=== PATIENT | male | born 1960 | race Caucasian/White ===

== ENCOUNTER 2024-11-05 00:37 | Day surgery (SDC) | payer MEDICARE, MEDICAID, SELFPAY ==
[2024-10-29 12:40] VITALS: BMI 24.0
--- OUTSIDE RECORDS SUMMARY | 2024-11-05 00:40 | XMS_ITS | Data Portability ---
Author Organization [facility] [place] Address [address] [place] [address] Care Team Providers Care Avionics Mechanic Name Role Phone BRENNON HILLMAN Primary Care Provider [phone] Assessment Encounter Date Assessment Date Assessment LastModified by Organization Details LastModified Time 03/27/2024 03/27/2024 we will try to g et records from Cardiology. I have advised that he get colonoscopy or Cologuard he has refused. Start blood pressure medication he has refused start aspirin at 81 mg because of his history of CAD with stent. He has refused. He will allow me to get a low-dose CT of the chest and some blood work. Smoking cessation quitting tobacco care instructions have been given to the patient he is not interested at all in any treatment to quit smoking. I will see him back in about 6 weeks. I have also recommended they see an molasses preparer because of these alleged for anaphylactic shock episodes he will think about. Refuses any respiratory immunizations today Not available 03/27/2024 16:39:43 05/29/2024 05/29/2024 start losartan. 25 mg daily. Atorvastatin 10 mg daily. Pulmonary function test. Healthy lifestyle care instructions. Warned of the ill effects of tobacco which included but not limited to increased tone in his aerodigestive tract increase incidence of heart attack stroke cancer lead to sudden or chronic medical illness. Not interested in any Modalities for tobacco cessation he will see me back in 6 weeks he was advised to stay up-to-date on COVID vaccination colon cancer screening HIV screening pneumococcal vaccination of which he refused all. Start aspirin 81 mg daily [email or web address] Not available 05/30/2024 12:33:58 06/24/2024 06/24/2024 quitting tobacco care instructions. Assessments reviewed screenings and immunizations ordered were appropriate and patient agreeable keep regular medical follow up [email or web address] Not available 06/28/2024 21:36:18 07/10/2024 07/10/2024 I want to refer him to Cardiology he states that he will not go because he ended last encounter on bad terms. I said we can always see another foreign languages professor and he really was not agreeable to that as yet. I am going to get try to get him seen by an molasses preparer because the patient thinks that he is going to have an anaphylaxis with any drug because they did not really find out why he had these episodes. Tobacco cessation again discussed in detail as well as keeping up on immunizations. He has some insurance challenges because of his narrow network on getting colonoscopies he will see me back in 1-2 months again I have recommended antihypertensive therapy today and he has refused [email or web address] Not available 07/11/2024 16:49:48 10/09/2024 10/09/2024 I told him to ge t a hold of Urology we gave him the phone number because of his elevated PSA ordered blood work reordered his LD CT and told him that he needs to answer his phone when people call so that they can schedule his appointment albuterol inhaler follow up 3-4 months warned of the ill effects of tobacco which included but not limited to increase tumors of the aerodigestive tract increase incidence a heart attack stroke and cancer that can lead to sudden or chronic medical illness [email or web address] Not available 10/09/2024 16:00:48 Plan of Treatment Reminders Order Date Submit Date Provider Last Modified By Organization Details Last Modified Time Details Appointments None recorded. Lab lipid panel, serum 2024 025 [facility], [address] [place] [address], [address], [place], [address], 09:02:12 CBC w/ auto diff 2024 025 [facility], [address] [place] [address], [address], [place], [address], 09:02:15 CMP, serum or plasma 2024 025 [facility], [address], [address], [place], [address], 5 09:02:14 PSA, total, serum or plasma 2023 024 [facility], [address], [address], [place], [address], 4 17:09:36 CBC w/ auto diff 2023 024 [facility], [address], [address], [place], [address], 4 17:09:35 CMP, serum or plasma 2023 024 [facility], [address], [address], [place], [address], 4 17:09:31 lipid panel, serum 2023 024 [facility], [address], [address], [place], [address], 4 17:09:30 urinalysis , complete 2023 024 [facility], [address], [address], [place], [address], 4 17:09:33 Referral molasses preparer referral 2024 025 [facility], [address], [place], [address], 5 11:47:59 Procedures colonoscop y screening (PROC) 2024 025 [facility], [address], [address], [place], [address], 11:58:27 Surgeries None recorded. Imaging LDCT, chest, for lung cancer screening 2023 [facility] (Imaging), [address], [place], [address], 5 16:16:19 LDCT, chest, for lung cancer screening 2023 024 [facility] ([facility]), [address] [place], [address], 5 11:36:31 Medication Orders albuterol sulfate HFA 90 mcg/actuat ion aerosol inhaler 2024 025 [email or web address][id number], [address], [place], [id number], 14:27:45 aspirin 81 mg capsule 2023 024 [email or web address] [facility] #[id number], [address], [place], [id number], 13:34:55 losartan 25 mg tablet 2023 024 [email or web address] #[id number], [address], [place], [id number], 13:34:55 atorvastat in 10 mg tablet 2023 024 [facility] #[id number], [address], [place], [id number], 4 13:34:55 Patient TargetsNo targets recorded. Patient Instructions Encounter Date Encounter Id Patient Instructions Last Modified By Organization Details Last Modified Time 03/27/2024 [id number] Quitting Tobacco : Care Instructions [email or web address] Not available 03/27/2024 15:56:13 05/29/2024 [id number] A healthy lifestyle: care instructions [email or web address] Not available 05/29/2024 13:34:55 06/24/2024 [id number] Quitting Tobacco : Care Instructions Not available 06/24/2024 12:53:44 Medicare [facility] Checklist [email or web address] Not available 06/24/2024 12:53:44 07/10/2024 [id number] A healthy lifestyle: care instructions Not available 07/10/2024 12:59:33 10/09/2024 [id number] A healthy lifestyle: care instructions [email or web address] Not available 10/09/2024 14:27:45 Quitting Tobacco : Care Instructions [email or web address] Not available 10/09/2024 14:27:45 Reason for Referral Reproduction Technician Referral for Anaph ylaxis Referring Physician: Brennon Hillman, Internal Medicine, Encounter Date: 07/10/2024 Results Created Date Observation Date Name Description Value Unit Range Abnormal Flag Note LastModifiedBy Organization Detail LastModifiedTime 04/03/2004/04/2024 SPECI MEN STATU S REPOR T specimen status report TNP Test not perfo rmed. Patie nt was unabl e to provi de a self- colle cted speci men for the reque sted testi ng. The follo wing test( s) were not perfo rmed: TEST: [id number] Urina lysis , Compl ete Not Available [facility] ([facility]) [address], [place], [address], 04/04/2024 17:09:29 04/03/2004/04/2024 LIPID PANEL cholesterol, total 124 mg/dL 100-19 9 Not Available [facility] ([facility]) [address] [place], [address], 04/04/2024 17:09:30 04/03/2004/04/2024 LIPID PANEL triglyceride s 72 mg/dL 0-149 Not Available [facility] ([facility]) [address] [place], [address], 04/04/2024 17:09:30 04/03/20 24 04/04/2024 LIPID PANEL HDL cholesterol 39 mg/dL >39 below low normal Not Available [facility] ([facility]) [address] [place], [address], 04/04/2024 17:09:30 04/03/20 24 04/04/2024 LIPID PANEL VLDL cholesterol talha 15 mg/dL 5-40 Not Available [facility] ([facility]) [address] [place], [address], 04/04/2024 17:09:30 04/03/20 24 04/04/2024 LIPID PANEL LDL chol calc ([facility]) 70 mg/dL 0-99 Not Available [facility] ([facility]) [address] [place], [address], 04/04/2024 17:09:30 04/03/20 24 04/04/2024 COMP. METAB OLIC PANEL (14) glucose 99 mg/dL 70-99 Not Available [facility] ([facility]) [address] [place], [address], 04/04/2024 17:09:31 04/03/20 24 04/04/2024 COMP. METAB OLIC PANEL (14) BUN 16 mg/dL 8-27 Not Available [facility] ([facility]) [address] [place], [address], 04/04/2024 17:09:31 04/03/20 24 04/04/2024 COMP. METAB OLIC PANEL (14) creatinine 0.89 mg/dL 0.76-1 .27 Not Available [facility] ([facility]) [address] [place], [address], 04/04/2024 17:09:31 04/03/20 24 04/04/2024 COMP. METAB OLIC PANEL (14) eGFR 96 mL/mi n/1.7 3 >59 Not Available [facility] ([facility]) [address] [place], [address], 04/04/2024 17:09:31 04/03/2004/04/2024 COMP. METAB OLIC PANEL (14) BUN/creatini ne ratio 18 04-09 Not Available [facility] ([facility]) [address], [place], [address], 04/04/2024 17:09:31 04/03/2004/04/2024 COMP. METAB OLIC PANEL (14) sodium 135 mmol/ L 134-14 4 Not Available [facility] ([facility]) [address] [place], [address], 04/04/2024 17:09:31 04/03/20 24 04/04/2024 COMP. METAB OLIC PANEL (14) potassium 4.8 mmol/ L 3.5-5. 2 Not Available [facility] ([facility]) [address] [facility], [place], [address], 04/04/2024 17:09:31 04/03/2004/04/2024 COMP. METAB OLIC PANEL (14) chloride 101 mmol/ L 96-106 Not Available [facility] ([facility]) [address] [facility], [place], [address], 04/04/2024 17:09:31 04/03/2004/04/2024 COMP. METAB OLIC PANEL (14) carbon dioxide, total 24 mmol/ L 20-29 Not Available [facility] ([facility]) [address] [facility], [place], [address], 04/04/2024 17:09:31 04/03/2004/04/2024 COMP. METAB OLIC PANEL (14) calcium 9.1 mg/dL 8.6-10 .2 Not Available [facility] ([facility]) [address] [facility], [place], [address], 04/04/2024 17:09:31 04/03/20 24 04/04/2024 COMP. METAB OLIC PANEL (14) protein, total 6.9 g/dL 6.0-8. 5 Not Available [facility] ([facility]) [address] [place], [address], 04/04/2024 17:09:31 04/03/20 24 04/04/2024 COMP. METAB OLIC PANEL (14) albumin 3.7 g/dL 3.9-4. 9 below low normal Not Available [facility] ([facility]) [address] [place], [address], 04/04/2024 17:09:31 04/03/2004/04/2024 COMP. METAB OLIC PANEL (14) globulin, total 3.2 g/dL 1.5-4. 5 Not Available [facility] ([facility]) [address] [place], [address], 04/04/2024 17:09:31 04/03/20 24 04/04/2024 COMP. METAB OLIC PANEL (14) bilirubin, total <0.2 mg/dL 0.0-1. 2 Not Available [facility] ([facility]) [address] [place], [address], 04/04/2024 17:09:31 04/03/20 24 04/04/2024 COMP. METAB OLIC PANEL (14) alkaline phosphatase 186 IU/L 44-121 above high normal Not Available [facility] ([facility]) [address] [place], [address], 04/04/2024 17:09:31 04/03/20 24 04/04/2024 COMP. METAB OLIC PANEL (14) AST (SGOT) 19 IU/L 0-40 Not Available [facility] ([facility]) [address] [place], [address], 04/04/2024 17:09:31 10/1804/04/2024 COMP. METAB OLIC PANEL (14) ALT (SGPT) 20 IU/L 0-44 Not Available [facility] ([facility]) [address] [facility], [place], [address], 04/04/2024 17:09:31 04/03/2004/04/2024 URINA LYSIS , COMPL ETE specific gravity - Test not perfo rmed. Patie nt was unabl e to provi de a self- colle cted speci men for the reque sted testi ng. The follo wing test( s) were not perfo rmed: Not Available [facility] ([facility]) [address] [place], [address], 04/04/2024 17:09:33 04/03/2004/04/2024 URINA LYSIS , COMPL ETE pH - Test not perfo rmed Not Available [facility] ([facility]) [address] [place], [address], 04/04/2024 17:09:33 04/03/2004/04/2024 URINA LYSIS , COMPL ETE protein - Test not perfo rmed Not Available [facility] ([facility]) [address] [place], [address], 04/04/2024 17:09:33 04/03/20 24 04/04/2024 URINA LYSIS , COMPL ETE glucose - Test not perfo rmed Not Available [facility] ([facility]) [address] [place], [address], 04/04/2024 17:09:33 04/03/2004/04/2024 URINA LYSIS , COMPL ETE ketones - Test not perfo rmed Not Available [facility] ([facility]) [address] [place], [address], 04/04/2024 17:09:33 10/18/20 24 04/03/2024 UNABL E TO VOID unable to void Commen t Patie nt unabl e to void. Urine to be colle cted at a later date. Not Available [facility] ([facility]) [address] [place], [address], 04/04/2024 17:09:34 04/03/20 24 04/04/2024 CBC WITH DIFFE RENTI AL/PL ATELE T WBC 11.5 x10e3 /uL 3.4-10 .8 above high normal Not Available [facility] ([facility]) [address] [place], [address], 04/04/2024 17:09:35 04/03/2004/04/2024 CBC WITH DIFFE RENTI AL/PL ATELE T RBC 4.04 x10e6 /uL 4.14-5 .80 below low normal Not Available [facility] ([facility]) [address] [place], [address], 04/04/2024 17:09:35 04/03/20 24 04/04/2024 CBC WITH DIFFE RENTI AL/PL ATELE T hemoglobin 11.3 g/dL 13.0-1 7.7 below low normal Not Available [facility] ([facility]) [address] [facility], [place], [address], 04/04/2024 17:09:35 04/03/20 24 04/04/2024 CBC WITH DIFFE RENTI AL/PL ATELE T hematocrit 36.4 % 37.5-5 1.0 below low normal Not Available [facility] ([facility]) [address] [place], [address], 04/04/2024 17:09:35 04/03/20 24 04/04/2024 CBC WITH DIFFE RENTI AL/PL ATELE T MCV 90 fL 79-97 Not Available [facility] ([facility]) [address] [place], [address], 04/04/2024 17:09:35 04/03/20 24 04/04/2024 CBC WITH DIFFE RENTI AL/PL ATELE T MCH 28.0 pg 26.6-3 3.0 Not Available [facility] ([facility]) [address] [facility], [place], [address], 04/04/2024 17:09:35 04/03/20 24 04/04/2024 CBC WITH DIFFE RENTI AL/PL ATELE T MCHC 31.0 g/dL 31.5-3 5.7 below low normal Not Available [facility] ([facility]) [address] [facility], [place], [address], 04/04/2024 17:09:35 04/03/20 24 04/04/2024 CBC WITH DIFFE RENTI AL/PL ATELE T RDW 12.5 % 11.6-1 5.4 Not Available [facility] ([facility]) [address] [facility], [place], [address], 04/04/2024 17:09:35 04/03/20 24 04/04/2024 CBC WITH DIFFE RENTI AL/PL ATELE T platelets 397 x10e3 /uL 150-45 0 Not Available [facility] ([facility]) [address] [facility], [place], [address], 04/04/2024 17:09:35 04/03/20 24 04/04/2024 CBC WITH DIFFE RENTI AL/PL ATELE T neutrophils 67 % notest ab. Not Available [facility] ([facility]) [address], [place], [address], 04/04/2024 17:09:35 04/03/20 24 04/04/2024 CBC WITH DIFFE RENTI AL/PL ATELE T lymphs 21 % notest ab. Not Available [facility] ([facility]) [address] [facility], [place], [address], 04/04/2024 17:09:35 04/03/20 24 04/04/2024 CBC WITH DIFFE RENTI AL/PL ATELE T monocytes 10 % notest ab. Not Available [facility] ([facility]) [address] [facility], [place], [address], 04/04/2024 17:09:35 04/03/20 24 04/04/2024 CBC WITH DIFFE RENTI AL/PL ATELE T eos 1 % notest ab. Not Available [facility] ([facility]) [address] [facility], [place], [address], 04/04/2024 17:09:35 04/03/20 24 04/04/2024 CBC WITH DIFFE RENTI AL/PL ATELE T basos 0 % notest ab. Not Available [facility] ([facility]) [address] [facility], [place], [address], 04/04/2024 17:09:35 04/03/20 24 04/04/2024 CBC WITH DIFFE RENTI AL/PL ATELE T neutrophils (absolute) 7.7 x10e3 /uL 1.4-7. 0 above high normal Not Available [facility] ([facility]) [address] [facility], [place], [address], 04/04/2024 17:09:35 04/03/20 24 04/04/2024 CBC WITH DIFFE RENTI AL/PL ATELE T lymphs (absolute) 2.4 x10e3 /uL 0.7-3. 1 Not Available [facility] ([facility]) [address] [place], [address], 04/04/2024 17:09:35 04/03/20 24 04/04/2024 CBC WITH DIFFE RENTI AL/PL ATELE T monocytes(ab solute) 1.1 x10e3 /uL 0.1-0. 9 above high normal Not Available [facility] ([facility]) [address] [place], [address], 04/04/2024 17:09:35 04/03/20 24 04/04/2024 CBC WITH DIFFE RENTI AL/PL ATELE T eos (absolute) 0.1 x10e3 /uL 0.0-0. 4 Not Available [facility] ([facility]) [address] [facility], [place], [address], 04/04/2024 17:09:35 04/03/20 24 04/04/2024 CBC WITH DIFFE RENTI AL/PL ATELE T baso (absolute) 0.1 x10e3 /uL 0.0-0. 2 Not Available [facility] ([facility]) [address], [place], [address], 04/04/2024 17:09:35 04/03/20 24 04/04/2024 CBC WITH DIFFE RENTI AL/PL ATELE T immature granulocytes 1 % notest ab. Not Available [facility] ([facility]) [address] [facility], [place], [address], 04/04/2024 17:09:35 04/03/20 24 04/04/2024 CBC WITH DIFFE RENTI AL/PL ATELE T immature grans (abs) 0.1 x10e3 /uL 0.0-0. 1 Not Available [facility] ([facility]) [address] [facility], [place], [address], 04/04/2024 17:09:35 04/03/20 24 04/04/2024 PROST ATE-S PECIF IC AG prostate specific Ag 15.6 NG/mL 0.0-4. 0 above high normal Rodney ECLIA metho dolog y. Accor ding to the Ameri can Urolo gical Assoc iatio n, Serum PSA shoul d decre ase and remai n at undet ectab le level s after radic al prost atect gerson. The AUA defin es bioch emica l recur rence as an initi al PSA value 0.2 ng/mL or great er follo wed by a subse quent confi rmato ry PSA value 0.2 ng/mL or great er. Value s obtai mary alice with diffe rent assay metho ds or kits canno t be used inter [place] . Resul ts canno t be inter prete d as absol [place] of the prese nce or absen ce of keke jenkins se. Not Available [facility] ([facility]) [address] [place], [address], 04/04/2024 17:09:36 10/10/19 25 10/10/2024 LIPID PANEL cholesterol, total 111 mg/dL 100-19 9 Not Available [facility] ([facility]) [address] [place], [address], 10/10/2024 09:02:12 10/10/1910/10/2024 LIPID PANEL triglyceride s 65 mg/dL 0-149 Not Available [facility] ([facility]) [address] [place], [address], 10/10/2024 09:02:12 10/10/19 25 10/10/2024 LIPID PANEL HDL cholesterol 38 mg/dL >39 below low normal Not Available [facility] ([facility]) [address] [place], [address], 10/10/2024 09:02:12 10/10/19 25 10/10/2024 LIPID PANEL VLDL cholesterol talha 14 mg/dL 5-40 Not Available [facility] ([facility]) [address] [place], [address], 10/10/2024 09:02:12 10/10/19 25 10/10/2024 LIPID PANEL LDL chol calc ([facility]) 59 mg/dL 0-99 Not Available [facility] ([facility]) [address] [place], [address], 10/10/2024 09:02:12 10/10/19 25 10/10/2024 COMP. METAB OLIC PANEL (14) glucose 71 mg/dL 70-99 Not Available [facility] ([facility]) [address] [place], [address], 10/10/2024 09:02:14 10/10/1910/10/2024 COMP. METAB OLIC PANEL (14) BUN 13 mg/dL 8-27 Not Available [facility] ([facility]) [address] [place], [address], 10/10/2024 09:02:14 10/10/19 25 10/10/2024 COMP. METAB OLIC PANEL (14) creatinine 0.74 mg/dL 0.76-1 .27 below low normal Not Available [facility] ([facility]) [address] [place], [address], 10/10/2024 09:02:14 10/10/19 25 10/10/2024 COMP. METAB OLIC PANEL (14) eGFR 101 mL/mi n/1.7 3 >59 Not Available [facility] ([facility]) [address] [place], [address], 10/10/2024 09:02:14 10/10/1910/10/2024 COMP. METAB OLIC PANEL (14) BUN/creatini ne ratio 18 10-24 Not Available [facility] ([facility]) [address] [place], [address], 10/10/2024 09:02:14 10/10/1910/10/2024 COMP. METAB OLIC PANEL (14) sodium 136 mmol/ L 134-14 4 Not Available [facility] ([facility]) [address] [place], [address], 10/10/2024 09:02:14 10/10/1910/10/2024 COMP. METAB OLIC PANEL (14) potassium 4.7 mmol/ L 3.5-5. 2 Not Available [facility] ([facility]) [address] [place], [address], 10/10/2024 09:02:14 10/10/1910/10/2024 COMP. METAB OLIC PANEL (14) chloride 104 mmol/ L 96-106 Not Available [facility] ([facility]) [address] [place], [address], 10/10/2024 09:02:14 10/10/1910/10/2024 COMP. METAB OLIC PANEL (14) carbon dioxide, total 20 mmol/ L 20-29 Not Available [facility] ([facility]) [address] [place], [address], 10/10/2024 09:02:14 10/10/1910/10/2024 COMP. METAB OLIC PANEL (14) calcium 8.6 mg/dL 8.6-10 .2 Not Available [facility] ([facility]) [address] [place], [address], 10/10/2024 09:02:14 10/10/1910/10/2024 COMP. METAB OLIC PANEL (14) protein, total 7.0 g/dL 6.0-8. 5 Not Available [facility] ([facility]) [address] [place], [address], 10/10/2024 09:02:14 10/10/1910/10/2024 COMP. METAB OLIC PANEL (14) albumin 3.4 g/dL 3.9-4. 9 below low normal Not Available [facility] ([facility]) [address] [place], [address], 10/10/2024 09:02:14 10/10/1910/10/2024 COMP. METAB OLIC PANEL (14) globulin, total 3.6 g/dL 1.5-4. 5 Not Available [facility] ([facility]) [address] [place], [address], 10/10/2024 09:02:14 10/10/1910/10/2024 COMP. METAB OLIC PANEL (14) bilirubin, total <0.2 mg/dL 0.0-1. 2 Not Available [facility] ([facility]) [address] [facility], [place], [address], 10/10/2024 09:02:14 10/10/1910/10/2024 COMP. METAB OLIC PANEL (14) alkaline phosphatase 162 IU/L 44-121 above high normal Not Available [facility] ([facility]) [address] [facility], [place], [address], 10/10/2024 09:02:14 10/10/1910/10/2024 COMP. METAB OLIC PANEL (14) AST (SGOT) 18 IU/L 0-40 Not Available [facility] ([facility]) [address] [facility], [place], [address], 10/10/2024 09:02:14 10/10/1910/10/2024 COMP. METAB OLIC PANEL (14) ALT (SGPT) 14 IU/L 0-44 Not Available [facility] ([facility]) [address] [place], [address], 10/10/2024 09:02:14 10/10/1910/10/2024 CBC WITH DIFFE RENTI AL/PL ATELE T WBC 11.8 x10e3 /uL 3.4-10 .8 above high normal Not Available [facility] ([facility]) [address] [place], [address], 10/10/2024 09:02:15 10/10/1910/10/2024 CBC WITH DIFFE RENTI AL/PL ATELE T RBC 2.96 x10e6 /uL 4.14-5 .80 below low normal Not Available [facility] ([facility]) [address] [place], [address], 10/10/2024 09:02:15 10/10/1910/10/2024 CBC WITH DIFFE RENTI AL/PL ATELE T hemoglobin 7.9 g/dL 13.0-1 7.7 below low normal Not Available [facility] ([facility]) [address] [facility], [place], [address], 10/10/2024 09:02:15 10/10/1910/10/2024 CBC WITH DIFFE RENTI AL/PL ATELE T hematocrit 26.5 % 37.5-5 1.0 below low normal Not Available [facility] ([facility]) [address] [place], [address], 10/10/2024 09:02:15 10/10/1910/10/2024 CBC WITH DIFFE RENTI AL/PL ATELE T MCV 90 fL 79-97 Not Available [facility] ([facility]) [address] [place], [address], 10/10/2024 09:02:15 10/10/1910/10/2024 CBC WITH DIFFE RENTI AL/PL ATELE T MCH 26.7 pg 26.6-3 3.0 Not Available [facility] ([facility]) [address] [place], [address], 10/10/2024 09:02:15 10/10/1910/10/2024 CBC WITH DIFFE RENTI AL/PL ATELE T MCHC 29.8 g/dL 31.5-3 5.7 below low normal Not Available [facility] ([facility]) [address] [place], [address], 10/10/2024 09:02:15 10/10/1910/10/2024 CBC WITH DIFFE RENTI AL/PL ATELE T RDW 14.7 % 11.6-1 5.4 Not Available [facility] ([facility]) [address] [place], [address], 10/10/2024 09:02:15 10/10/19 25 10/10/2024 CBC WITH DIFFE RENTI AL/PL ATELE T platelets 725 x10e3 /uL 150-45 0 above high normal Not Available [facility] ([facility]) [address] [facility], [place], [address], 10/10/2024 09:02:15 10/10/1910/10/2024 CBC WITH DIFFE RENTI AL/PL ATELE T neutrophils 63 % notest ab. Not Available [facility] ([facility]) [address] [facility], [place], [address], 10/10/2024 09:02:15 10/10/1910/10/2024 CBC WITH DIFFE RENTI AL/PL ATELE T lymphs 26 % notest ab. Not Available [facility] ([facility]) [address] [facility], [place], [address], 10/10/2024 09:02:15 10/10/19 25 10/10/2024 CBC WITH DIFFE RENTI AL/PL ATELE T monocytes 9 % notest ab. Not Available [facility] ([facility]) [address] [place], [address], 10/10/2024 09:02:15 10/10/19 25 10/10/2024 CBC WITH DIFFE RENTI AL/PL ATELE T eos 1 % notest ab. Not Available [facility] ([facility]) [address] [place], [address], 10/10/2024 09:02:15 10/10/1910/10/2024 CBC WITH DIFFE RENTI AL/PL ATELE T basos 0 % notest ab. Not Available [facility] ([facility]) [address] [place], [address], 10/10/2024 09:02:15 10/10/19 25 10/10/2024 CBC WITH DIFFE RENTI AL/PL ATELE T neutrophils (absolute) 7.5 x10e3 /uL 1.4-7. 0 above high normal Not Available [facility] ([facility]) [address] [place], [address], 10/10/2024 09:02:15 10/10/1910/10/2024 CBC WITH DIFFE RENTI AL/PL ATELE T lymphs (absolute) 3.1 x10e3 /uL 0.7-3. 1 Not Available [facility] ([facility]) [address] [place], [address], 10/10/2024 09:02:15 10/10/1910/10/2024 CBC WITH DIFFE RENTI AL/PL ATELE T monocytes(ab solute) 1.0 x10e3 /uL 0.1-0. 9 above high normal Not Available [facility] ([facility]) [address] [place], [address], 10/10/2024 09:02:15 10/10/1910/10/2024 CBC WITH DIFFE RENTI AL/PL ATELE T eos (absolute) 0.1 x10e3 /uL 0.0-0. 4 Not Available [facility] ([facility]) [address] [place], [address], 10/10/2024 09:02:15 10/10/1910/10/2024 CBC WITH DIFFE RENTI AL/PL ATELE T baso (absolute) 0.0 x10e3 /uL 0.0-0. 2 Not Available [facility] ([facility]) [address] [place], [address], 10/10/2024 09:02:15 10/10/1910/10/2024 CBC WITH DIFFE RENTI AL/PL ATELE T immature granulocytes 1 % notest ab. Not Available [facility] ([facility]) [address] [place], [address], 10/10/2024 09:02:15 10/10/19 25 10/10/2024 CBC WITH DIFFE RENTI AL/PL ATELE T immature grans (abs) 0.1 x10e3 /uL 0.0-0. 1 Not Available [facility] ([facility]) [address] [facility], [place], [address], 10/10/2024 09:02:15 10/22/19 25 10/22/2024 VITAM IN B12 AND FOLAT E vitamin B12 340 pg/mL 232-12 45 Not Available [facility] ([facility]) [address] [facility], [place], [address], 10/22/2024 06:51:15 10/22/1910/22/2024 VITAM IN B12 AND FOLAT E folate (folic acid), serum 10.2 NG/mL >3.0 A serum folat e paul ntrat ion of less than 3.1 ng/mL is consi dered to repre sent clini talha defic iency . Not Available [facility] ([facility]) [address] [facility], [place], [address], 10/22/2024 06:51:15 10/22/1910/22/2024 IRON AND TIBC iron bind.cap.(TI BC) 383 ug/dL 250-45 0 Not Available [facility] ([facility]) [address] [place], [address], 10/22/2024 06:51:16 10/22/1910/22/2024 IRON AND TIBC UIBC 371 ug/dL 111-34 3 above high normal Not Available [facility] ([facility]) [address] [place], [address], 10/22/2024 06:51:16 10/22/19 25 10/22/2024 IRON AND TIBC iron 12 ug/dL 38-169 below low normal Not Available [facility] ([facility]) [address] [place], [address], 10/22/2024 06:51:16 10/22/19 25 10/22/2024 IRON AND TIBC iron saturation 3 % 15-55 alert low Not Available [facility] ([facility]) [address] [place], [address], 10/22/2024 06:51:16 10/22/19 25 10/22/2024 ELYSIA TIN ferritin 17 NG/mL 30-400 below low normal Not Available [facility] ([facility]) [address] [facility], [place], [address], 10/22/2024 06:51:17 10/22/19 25 10/22/2024 RETIC ULOCY TE COUNT reticulocyte count 2.7 % 0.6-2. 6 above high normal Ulises ified by repea t kevin sis Not Available [facility] ([facility]) [address] [place], [address], 10/22/2024 06:51:18 10/27/19 25 10/27/2024 COLOF IT,OC CULT BLOOD ,FECA L,IA occult blood, fecal, ia POSITI VE negati ve abnormal Not Available [facility] ([facility]) [address] [place], [address], 10/27/2024 15:21:53 Result Notes None recorded. 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 LEIUD Yen, [place] - [facility] 8 12:39:31 Essential hypertensi on 15474653 Active 2023 ELIUD Earl, [place] - [facility] 4 13:15:33 Smoker 28377082 Active 2023 Brennon Hillman MD Attn: Julia g,[address] [facility], [place], [address], [place] - [facility] 4 16:39:10 Coronary atheroscle rosis 760165235 Active 2023 Brennon Hillman MD Attn: Julia lópez,[address] [facility], [place], [place], [address] [place] [address] 2, [place] [facility] 5 16:00:18 Hyperlipid emia 43783173 Active 2023 Brennon Hillman MD Attn: Julia lópez,[address] [facility], [place], [place], [address] [place] [address] 2, [place] [facility] 4 16:39:16 Colonoscop y declined 989727539387 100 Active 2023 Brennon Hillman MD Attn: Julia lópez,[address] [facility], [place], [place], [address] [place] [address] 2, [place] [facility] 4 16:40:02 Vaccinatio n declined 5543702534 Active 2023 Brennon Hillman MD Attn: Megtanya lópez,[address] [place], [place], [address] [place] [address] 2, [place] [facility] 4 16:40:37 Influenza vaccinatio n declined 740221718 Active 2023 Brennon Hillman MD Attn: Julia lópez,[address] [facility], [place], [place], [address] [place] [address] 2, [place] [facility] 4 16:40:38 Pneumococc al vaccinatio n declined 396615172 Active 2023 Brennon Hillman MD Attn: Megtanya lópez,[address] [facility], [place], [place], [address] [place] [address] 2, [place] [facility] 4 12:33:27 SARS-CoV-2 vaccinatio n declined 4015757687 Active 2023 Brennon Hillman MD Attn: Julia g,[address] [facility], [place], [place], [address] [place] [address] 2, [place] [facility] 4 12:33:27 HIV screening declined 877931756467 100 Active 2023 Brennon Hillman MD Attn: Julia rene,[address] [place], [address], [facility] - [facility] 4 12:33:30 Nicotine dependence 47097734 Active 2023 Brennon Hillman MD Attn: Julia lópez,[address] [facility], [place], [address], [facility] 4 12:33:33 History of hepatitis C 170895469260 01 Active 2023 treated Brennon Hillman MD Attn: Julia lópez,[address] [facility], [place], [address], [facility] - [facility] 4 12:34:18 Problem Notes None recorded. Procedures Surgical History Date Name Laterality Status Provider Name and Address Organization Details Recorded Time Heart Surgery completed Casa Vanegas MA [facility] 07/04/2017 12:18:59 Imaging Results None recorded. Procedure Notes None recorded. Medical Equipment None Reported. Allergies No known drug allergies Medications Name Sig Start Date Stop Date Status Note LastModified by Organization Details LastModified Time atorvastati n calcium 80 mg tabs 05/29 completed Not Available Not Available Not Available alprazolam 1 mg tabs 05/29 completed Not Available Not Available Not Available atorvastati n calcium 40 mg tabs 07/04 completed Not Available Not Available Not Available prednisone 10 mg tabs 07/04 completed Not Available Not Available Not Available carvedilol 6.25 mg tabs 05/29 completed Not Available Not Available Not Available epinephrine 0.3 mg/0.3ml soaj 05/29 completed Not Available Not Available Not Available hydrocodone /acetaminop hen 10-325 mg tabs 05/29 completed Not Available Not Available Not Available clopidogrel 75 mg tabs 05/29 completed Not Available Not Available Not Available proair hfa 108 (90 base) mcg/act aers 07/04 completed Not Available Not Available Not Available amlodipine besylate 5 mg tabs 05/29 completed Not Available Not Available Not Available clindamycin HCl 300 mg capsule TAKE 1 CAPSULE BY MOUTH EVERY 6 HOURS 05/29 completed Not Available Not Available Not Available atorvastati n 10 mg tablet TAKE 1 TABLET BY MOUTH EVERY DAY 2023 active Not Available Not Available Not Avai lable sulfamethox azole 800 mg-trimetho prim 160 mg tablet TAKE 1 TABLET BY MOUTH TWICE DAILY active Not Available Not Available No t Available losartan 25 mg tablet Take 1 tablet every day by oral route. 2023 active Not Available Not Available Not Avai lable mupirocin 2 % topical ointment APPLY TO THE AFFECTED AREA TWICE DAILY WITH DRESSING CHANGE active Not Available Not Available No t Available albuterol sulfate HFA 90 mcg/actuati on aerosol inhaler INHALE 2 PUFFS BY MOUTH DAILY NEEDED active Not Available Not Available No t Available aspirin 81 mg capsule Take 1 capsule every day by oral route. 2023 active Not Available Not Available Not Avai lable Vitals Date Recorded Body height Body mass index (BMI) Body weight Heart rate Oxygen saturation Oxygen saturation in Arterial blood by Pulse oximetry Systolic blood pressure Diastolic blood pressure Provider Name and Address Organization Details Last Updated DateTime 4 177.8 cm 24.1 kg/m2 87968.4 4 g 103 /min 100 % 100 % 150 mm[Hg] 90 mm[Hg] [facility] 4 12:09:12 Date Recorded Body height Body mass index (BMI) Body weight Heart rate Oxygen saturation Oxygen saturation in Arterial blood by Pulse oximetry Systolic blood pressure Diastolic blood pressure Provider Name and Address Organization Details Last Updated DateTime 4 177.8 cm 25 kg/m2 12207.8 7 g 74 /min 100 % 100 % 150 mm[Hg] 90 mm[Hg] [facility] 4 12:54:18 Date Recorded Body height Body mass index (BMI) Body weight Heart rate Systolic blood pressure Diastolic blood pressure Provider Name and Address Organization Details Last Updated DateTime 5 177.8 cm 25 kg/m2 98649.1 5 g 88 /min 132 mm[Hg] 80 mm[Hg] [facility] 5 11:55:21 Date Recorded Body height Body mass index (BMI) Body weight Heart rate Oxygen saturation Oxygen saturation in Arterial blood by Pulse oximetry Systolic blood pressure Diastolic blood pressure Provider Name and Address Organization Details Last Updated DateTime 5 177.8 cm 26.2 kg/m2 73141.6 1 g 88 /min 100 % 100 % 140 mm[Hg] 92 mm[Hg] Indy Zacarias MA [facility] 5 12:52:30 Date Recorded Body height Body mass index (BMI) Body weight Heart rate Oxygen saturation Oxygen saturation in Arterial blood by Pulse oximetry Systolic blood pressure Diastolic blood pressure Provider Name and Address Organization Details Last Updated DateTime 5 177.8 cm 25.3 kg/m2 53674.4 1 g 100 /min 97 % 97 % 120 mm[Hg] 74 mm[Hg] Indy Zacarias MA [facility] 5 12:52:54 Social History Question Answer Notes LastModified by Organizat ion Details LastModified Time Tobacco Smoking Status Current Every Day Smoker cigarettes Casa Vanegas MA [facility] 07/04/2017 12:19:38 Do You Have An Advance Directive? No Patient Declined Information. Information not available 06/24/2024 Are You Blind Or Do You Have Difficulty Seeing? No Reading Glasses Information not available 06/24/2024 What Is Your Level Of Caffeine Consumption? Moderate Information not available 06/24/2024 In The 14 Days Before Symptom Onset, Have You Had Close Contact With A Laboratory-confi rmed COVID-19 While That Case Was Ill? No Information not available 03/27/2024 In The 14 Days Before Symptom Onset, Have You Had Close Contact With A Person Who Is Under Investigation For COVID-19 While That Person Was Ill? No Information not available 03/27/2024 Have You Been To An Area Known To Be High Risk For COVID-19? No Information not available 03/27/2024 Are You Deaf Or Do You Have Serious Difficulty Hearing? No Information not available 03/27/2024 What Type Of Diet Are You Following? REGULAR Information not available 03/27/2024 Are There Any Guns Present In Your Home? No Information not available 03/27/2024 In The Past 7 Days, How Many Days Did You Exercise? 0 Information not available 06/24/2024 In The Past 7 Days, How Much Pain Have You Midway? None Information not available 06/24/2024 In General, Would You Say You Health Is: Fair Information not available 06/24/2024 How Would You Describe The Condition Of Your Mouth And Teeth- Including False Teeth Or Dentures? Fair Information not available 06/24/2024 Each Night, How Many Hours Of Sleep Do You Get? 6 Information not available 06/24/2024 Has Anyone Ever Told You That You Snore? Yes Information not available 06/24/2024 In The Past 7 Days, How Often Have You Midway Sleepy In The Daytime? Sometimes Information not available 06/24/2024 # Alcohol Drinks Per Week 0 Information not available 06/24/2024 What Was The Date Of Your Most Recent Tobacco Screening? 10/09/2024 Information not available 10/09/2024 Do You Use Your Seat Belt Or Car Seat Routinely? No Information not available 06/24/2024 Do You Have Smoke And Carbon Monoxide Detectors In Your Home? Yes Information not available 03/27/2024 At What Age Did You Start Smoking Tobacco? 10 Information not available 06/24/2024 How Much Tobacco Do You Smoke? 1 PPD [email or web address] Information not available 07/04/2017 Do You Use Sunscreen Routinely? No Information not available 06/24/2024 Has Tobacco Cessation Counseling Been Provided? Yes Information not available 03/27/2024 On What Date Was Tobacco Cessation Counseling Provided? 10/09/2024 Information not available 10/09/2024 How Many Years Have You Smoked Tobacco? 53 Information not available 06/24/2024 Sex: Male Functional Status Question Answer Note LastModified by Organizat ion Details LastModified Time Do you use any illicit or recreational drugs? Yes pretty much anything Information not available 06/24/2024 Do you or have you ever used any other forms of tobacco or nicotine? No Information not available 03/27/2024 What is your level of alcohol consumption? Occasional Information not available 06/24/2024 Are you currently employed? No Disability Information not available 06/24/2024 Are you able to care for yourself? Yes Information not available 03/27/2024 What is your exercise level? None Information not available 06/24/2024 Mental Status Question Answer Note LastModified by Organization D etails LastModified Time Do you feel stressed (tense, restless, nervous, or anxious, or unable to sleep at night)? [id number] Information not available 06/24/2024 Family History Relationship Description Onset Age of this Age Resolved Age Notes LastModified by Organization Details LastModified Time Father No current problems or disability [email or web address] Not available 03/27 12:10:43 Mother No current problems or disability [email or web address] Not available 03/27 12:10:43 Medical History Condition Response Coronary Artery Disease Y Other N High Blood Pressure Y Atrial Fibrillation N Thyroid Problems N Kidney or Bladder Problems N GI Problems Y Depression Y COPD Y Blood Clots N Have you had a mammogram in the last yea r? N Skin Problems N Anemia N Heart Attack (NE) Y Diabetes N Anxiety Disorder Y Muscle, Joint, or Bone Problems Y Seizures/Epilepsy N Have you had a colonoscopy in the last 1 0 years? N Acid Reflux (GERD) Y Cancer Y Stroke N Asthma N Allergies N Have you had a PSA blood test in the las t year? Y High Cholesterol Y Hepatitis Y Liver Disease N Headaches N Osteoporosis N Heart Failure N Immunizations Vaccine Type Date Status Note Provider Nam e and Address Organization Details Recorded Time Influenza, split virus, trivalent, PF 03/14/2016 completed Lyubov Casarez [facility] 06/24/2024 09:46:54 Past Encounters Encounter ID Performer Location Encounter Start Date Encounter Closed Date Diagnosis/Indication Diagnosis SNOMED-CT Code Diagnosis ICD10 Code Diagnosis Note [id number] Miracle Bauer MD [facility] (Adult Med) [address] [place] [id number] 07/04/2017 11:23:11 07/04/2017 13:49:25 Shoulder joint pain 896725202 M25.519 Neck pain 67607138 M54.2 Narcotic drug user 62089 002 F11.10 Anaphylaxis 64788408 T78 .2XXS [id number] [facility] [address] [place] [id number] 03/27/2024 11:56:20 03/27/2024 13:10:33 Essential hypertension 27029184 I10 Smoker 23389820 F17.200 Screening for malignant neoplasm of prostate 190848094 Z12.5 Coronary atherosclerosis 370996620 I25.10 Hyperlipidemia 43363948 E78.5 Colonoscopy declined 289 1936952 64746 Z53.20 Influenza vaccination declined 647117983 Z28.21 Vaccination declined 256 8125486 Z28.21 [id number] Brennon Hillman MD [facility] (Adult Med) [address] [place] [id number] 05/29/2024 12:33:04 05/29/2024 13:16:21 Body mass index 25-29 - overweight 808801431 Z68.25 Overweight 494256669 E66 .3 Coronary atherosclerosis 973400823 I25.10 Essential hypertension 25879855 I10 Hyperlipidemia 92521270 E78.5 Nicotine dependence 5629 4008 F17.200 Colon canc er screening declined 7530508503 9109 Z53.20 HIV screen ing declined 7871670759 46772 Z53.20 Influenza vaccination declined 566908286 Z28.21 SARS-CoV-2 vaccination declined 2668281361 Z28.21 Pneumococc al vaccination declined 248827606 Z28.21 [id number] MD [facility] [address] [place] [id number] 06/24/2024 11:49:35 06/24/2024 12:32:39 Adult health examination 730745451 Z00.00 Health Risk Assessment collected and reviewed Screening for malignant neoplasm of colon 625477211 Z12.11 [id number] MD Madeline Laura (Adult Med) [address] [place] [id number] 07/10/2024 12:31:18 07/10/2024 13:50:24 Body mass index 25-29 - overweight 499268252 Z68.25 Overweight 455643194 E66 .3 Anaphylaxis 13303313 T78 .2XXA Coronary atherosclerosis 994990198 I25.10 Essential hypertension 60738139 I10 [id number] MD Madeline Laura (Adult Med) [address] [place] [address] 10/09/2024 12:35:00 10/09/2024 14:13:07 Finding of tobacco use and exposure 387109810 Z72.0 Smoker 71228572 F17.200 Overweight in adulthood with body mass index of 25 or more but less than 30 461670680 Z68.25 Overweight 127644568 E66 .3 Essential hypertension 54653540 I10 Chronic ob structive pulmonary disease 39906526 J44.9 Coronary atherosclerosis 173877317 I25.10 Health Concerns Section Related Observation LastModified by Organization Detai ls LastModified Time None Recorded Concern Status LastModified by Organization Details LastModified Time None Recorded Advance Directives Directive N: Patient declined informat ion. Payers Encounter Date Sequence Insurance Name Policy Number Policy Arthur Covered Member ID Arthur Member ID Guarantor Name 03/27/2024 1 [place] Yosi Nelson [id number] Yosi Nelson 05/29/2024 1 [place] Yosi Nelson [id number] Yosi Nelson 06/24/2024 1 [place] Yosi Nelson [id number] Yosi Nelson 07/10/2024 1 [facility] (MEDICARE REPLACEMENT/A DVANTAGE - PPO) [id number] Yosi Nelson [id number] Yosi Nelson 10/09/2024 1 [facility] (MEDICARE REPLACEMENT/A DVANTAGE - PPO) [id number] Yosi Nelson [id number] Yosi Nelson Notes Date Note Type Note Provider Name and Address Organization Details Recorded Time 03/27/2024 text/html 63-year-old with history of NE says that he has 2 stents remote history of testicular cancer. History of hyperlipidemia. And he says he has had an anaphylactic shock 4 times is a poor historian as to where these occurred we just quit taking all of his medications and he says he feels great meds currently not taking anything denies allergies surgeries skin graft on legs because it vega family history is father at 84 he says from old age mom is alive he is unaware of her medical problems social history pack a day smoker for 50 years he drinks 6 beers a week and he states that he is on disability for some back problems Brennon Hillman MD Attn: Accounting,[address], [place], [address], [facility] 03/27/2024 16:41:03 05/29/2024 text/html so Noble pretty much has not done anything we have asked him to do he went to the urologist and he was supposed to call them back he never did he did not start the statin but he says he will today if I really want him to he continues to smoke not doing anything for any exercise Brennon Hillman MD Attn: Accounting,[address], [place], [address], [facility] 05/30/2024 12:34:41 06/24/2024 text/html MAW 2Reported bypatient.Diet and Nutrition:healthy diet Fracture Risk:no sudden unexplained fractures;history of fractures Concentration and Memory:no decreased concentrating ability; no memory lapses or loss; does not forget words Speech/Motor difficulties:no speech difficulties; no difficulty expressing formulated concepts; no difficulty with fine manipulative tasks; no difficulty writing/copying; no slowed reaction time; does not knock things over when trying to pick them up Hearing:no loss of hearing Vision:worse near(reading glasses) Activities of Daily Living:able to bathe with limited or no assistance; able to contol urination and bowels; able to dress with limited or no assistance; able to feed self with limited or no assistance; able to get out of chair or bed with limited or no assistance; able to groom with limited or no assistance; able to toilet with limited or no assistance Instrumental Activities of Daily Living:able to do house work with limited or no assistance; able to grocery shop with limited or no assistance; able to manage medications with limited or no assistance; able to manage money with limited or no assistance; able to prepare meals with limited or no assistance; able to use the phone with limited or no assistance Falls Risk Assessment:no frequent falls while walking; no fall in the past year; no fall since last visit; no dizziness/vertigo Home Safety:reviewed sun protection; no unsafe larry hazzards; no unsafe stairs; working smoke/CO detectors; practicing 'safer sex'; no fire arms; good lighting in the home;does not have hand bars in the bathroom/shower Brennon Hillman MD Attn: Accounting, [address] [place], [address], [facility] 06/28/2024 21:36:31 07/10/2024 text/html hypertension did not start the medication dyslipidemia did not start the medication states that he is worried that he is going to have another anaphylaxis episode still smoking Brennon Hillman MD Attn: Accounting, [address] [place], [address], [facility] 07/11/2024 16:50:06 10/09/2024 text/html Still smoking so me cough at time to time did not get his lung scan done really did not even follow up with Urology like he was supposed to states that admittedly he does not answer his phone that much Brennon Hillman MD Attn: Accounting, [address] [place], [address], [place] [facility] 10/09/2024 16:01:06
--- OUTSIDE RECORDS SUMMARY | 2024-11-05 00:40 | XMS_ITS | CONTINUITY OF CARE DOCUMENT ---
Author Name lay chun Address Unknown Organization [facility] Address [address] [place] [address] Phone [phone] Care Team Providers Care Drawing In Hand Name Role Phone Malcolm Toussaint MD Unavailable [phone] JENNY SOLO MD Unavailable [phone] JENNY SOLO MD Unavailable [phone] PROBLEMS Condition Status Date Provider Notes ANXIETY DISORDER, GENERALIZED active ? Malcolm Toussaint MD CHEST PAIN active Prakash Yang CLAUDICATION, INTERMITTENT active Prakash Yang TOBACCO ABUSE active Malcolm Toussaint MD HTN - 12/01 CATH NML RENAL ARTERIES active Malcolm Toussaint MD CAD - 12/01 CATH PATENT RCA and PDA STENTS active Malcolm Toussaint MD Edema LE bilateral active Prakash Peterson g HEPATITIS C active Malcolm Toussaint MD Shortness of breath active Prakash Reyes rg Hypercholesterolemia active Della Lovelace lder Carotid artery stenosis, <50% ICA b/l active 4 Prakash Yang RBBB active Malcolm Toussaint MD Angina pectoris active Malcolm Toussaint MD Obesity active Prakash Yang Preoperative cardiovascular active Edson torres MD ENCOUNTERS Date Type Provider Location Encounter Diag nosis 7 - 7 In-person encounter Office Visit Edson Phelan MD [facility] Preoperative cardiovascular 1 - 2 In-person encounter Office Visit Malcolm Toussaint MD [facility] 5 - 6 In-person encounter Office Visit Malcolm Toussaint MD [facility] HTN - 12/01 CATH NML RENAL ARTERIESCAD - 12/01 CATH PATENT RCA and PDA STENTSObesity 7 - 5 In-person encounter Office Visit Malcolm Toussaint MD [facility] CHEST PAINCLAUDICATION, INTERMITTENTCAD - 12/01 CATH PATENT RCA and PDA STENTSCarotid artery stenosis, <50% ICA b/l 9 - 0 In-person encounter Office Visit Malcolm Toussaint MD [facility] RBBBAngina pectoris 7 - 8 In-person encounter Office Visit Malcolm Toussaint MD [facility] 7 - 7 In-person encounter Office Visit Malcolm Toussaint MD [facility] HTN - 12/01 CATH NML RENAL ARTERIESCAD - 12/01 CATH PATENT RCA and PDA STENTSEdema LE bilateralShortness of breathHypercholesterolemiaCarotid artery stenosis, <50% ICA b/l 8 - 8 In-person encounter Office Visit Malcolm Toussaint MD [facility] 2 - 3 In-person encounter Office Visit Malcolm Toussaint MD [facility] HEPATITIS C 6 - 7 In-person encounter Office Visit Malcolm Toussaint MD [facility] 1 - 5 In-person encounter Office Visit Alex Osborn MD [facility] Edema LE bilateral 3 - 8 In-person encounter Office Visit Malcolm Toussaint MD [facility] 5 - 5 In-person encounter Office Visit Malcolm Toussaint MD [facility] 5 - 5 In-person encounter Office Visit Malcolm Toussaint MD [facility] 8 - 8 In-person encounter Office Visit Malcolm Toussaint MD [facility] 0 - 0 In-person encounter Office Visit Malcolm Toussaint MD [facility] 4 - 4 In-person encounter Office Visit Malcolm Toussaint MD [facility] 1 - 1 In-person encounter Office Visit Malcolm Toussaint MD [facility] 7 - 8 In-person encounter Office Visit Malcolm Toussaint MD [facility] CHEST PAINHTN - 12/01 CATH NML RENAL ARTERIES 1 - 8 In-person encounter Office Visit Malcolm Toussaint MD [facility] ANXIETY DISORDER, GENERALIZEDCHEST PAINCLAUDICATION, INTERMITTENTTOBACCO ABUSE VITAL SIGNS Date Observation Value Provider Body Mass Index (Ratio) 28.01 kg/m2 Marty Phelan MD blood pressure, cuff size regular Ke rri Michel blood pressure, diastolic 92 mm[Hg] Ke rri Michel blood pressure, systolic 146 mm[Hg] Isma ri Michel oxygen saturation, oximetry 96 % Della Pearson respiratory rate E&M 20 /min Della barrett pulse rate 84 /min Della Lovelace [facility] weight E&M 198 [lb_av] Della Lovelace er height E&M 70.5 [in_i] Della Radu er Body Mass Index (Ratio) 32.25 kg/m2 Sunil Yang blood pressure, cuff size large Ke rri Maileneaiden blood pressure, diastolic 96 mm[Hg] Ke rri Gruenenfcarlos alberto blood pressure, systolic 142 mm[Hg] Isma ri Junaidueneaiden oxygen saturation, oximetry 98 % Della Pearson respiratory rate E&M 18 /min Della G nena pulse rate 95 /min Della Lovelace [facility] weight E&M 228 [lb_av] Della Radu [facility] height E&M 70.5 [in_i] Della Maciele [facility] Body Mass Index (Ratio) 31.26 kg/m2 Sunil rajeshgeorge CannonCelia blood pressure, cuff size large Ke rri Janelltejal blood pressure, diastolic 80 mm[Hg] [facility] blood [facility], systolic 152 mm[Hg] Isma Macielcarlos alberto oxygen saturation, oximetry 98 % Della Macielcarlos alberto respiratory rate E&M 16 /min Della Gomez lalithadaveaiden pulse rate 101 /min Della Lovelace [facility] weight E&M 221 [lb_av] Della Lovelace [facility] height E&M 70.5 [in_i] Della Lovelace [facility] Body Mass Index (Ratio) 30.89 kg/m2 Sunil rajesh Yang blood pressure, resting Yes Tona Noriega blood pressure, diastolic 77 mm[Hg] Magdaleno Noriega blood pressure, systolic 109 mm[Hg] Genesis Noriega oxygen saturation, oximetry 96 % Ishan Noriega respiratory rate E&M 18 /min Papo Noriega pulse rate 84 /min Ishan ambrosio weight E&M 218.4 [lb_av] Ishan larson height E&M 70.5 [in_i] Ishan ambrosio blood pressure, diastolic, left arm 100 m m[Hg] Allison Lozano blood pressure, systolic, left arm 140 mm [Hg] Allison Lozano blood pressure, diastolic, right arm 90 m m[Hg] Allison Lozano blood pressure, systolic, right arm 130 m m[Hg] Allison Parkerhley blood pressure, diastolic 90 mm[Hg] Guerrero Parkerhley blood pressure, systolic 130 mm[Hg] Felipe Parkerhley pulse rate 74 /min Allison Parkerhley oxygen saturation, oximetry 98 % Allison Parkerhley respiratory rate E&M 18 /min Allison Blake Body Mass Index (Ratio) 31.23 kg/m2 Whitley Parkerhley weight E&M 220.8 [lb_av] Allison pollard blood pressure, diastolic 86 mm[Hg] Magdaleno Jasmina Noriega blood pressure, systolic 130 mm[Hg] Genesis Noriega pulse rate 80 /min IshanMerecdez ambrosio oxygen saturation, oximetry 97 % Ishan Zayasenson respiratory rate E&M 16 /min TonaMarion Noriega Body Mass Index (Ratio) 31.00 kg/m2 AmeliaMercedez Noriega weight E&M 219.2 [lb_av] Ishan Marquez marsha blood pressure, diastolic 88 mm[Hg] Magdaleno Jasmina Zayasenson blood pressure, systolic 128 mm[Hg] Genesis Noriega pulse rate 82 /min IshanMercedez ambrosio oxygen saturation, oximetry 98 % Ishan Zayasenson respiratory rate E&M 18 /min TonaMarion Noriega Body Mass Index (Ratio) 33.01 kg/m2 Tona Noriega weight E&M 233.4 [lb_av] Ishan Marquez marsha Body Mass Index (Ratio) 32.96 kg/m2 Anea lela Brown blood pressure, diastolic 86 mm[Hg] An eatris Brown blood pressure, systolic 123 mm[Hg] Ane atris Brown pulse rate 79 /min Didier Harper oxygen saturation, oximetry 97 % Didier Harper respiratory rate E&M 17 /min Socorro Harper weight E&M 233 [lb_av] Didier Harper Body Mass Index (Ratio) 35.49 kg/m2 Andriy Pavon blood pressure, diastolic, left arm 74 mm [Hg] Justin Pavon blood pressure, systolic, left arm 117 mm [Hg] Forrestelmira Pavon blood pressure, diastolic, right arm 73 m m[Hg] Justin Pavon blood pressure, systolic, right arm 127 m m[Hg] Forrestelmira Pavon blood pressure, diastolic 74 mm[Hg] Harrell blood pressure, systolic 117 mm[Hg] Forrest Pavon pulse rate 82 /min [facility] oxygen saturation, oximetry 97 % Justin Pavon respiratory rate E&M 16 /min Forrestelmira Pavon weight E&M 250 [lb_av] Justin Pavon blood pressure, diastolic, left arm 98 mm [Hg] Stephen Canales RN blood pressure, systolic, left arm 145 mm [Hg] Stephen Canales RN blood pressure, diastolic, right arm 92 m m[Hg] Stephen Canales RN blood pressure, systolic, right arm 138 m m[Hg] Stephen Canales RN blood pressure, diastolic 98 mm[Hg] Imtiaz Canales RN blood pressure, systolic 145 mm[Hg] Stephen Canales RN pulse rate 73 /min Stephen Canales RN oxygen saturation, oximetry 94 % Stephen Canales RN respiratory rate E&M 18 /min Stephen chavez RN weight E&M 240 [lb_av] Stephen Canales RN blood pressure, diastolic 102 mm[Hg] Gabriela Saenz blood pressure, systolic 152 mm[Hg] Sandra Saenz pulse rate 107 /min Radha Saenz oxygen saturation, oximetry 94 % Radha Saenz respiratory rate E&M 18 /min Radha Saenz weight E&M 260 [lb_av] Radha Saenz Body Mass Index (Ratio) 33.93 kg/m2 Stephen Canales RN blood pressure, diastolic, left arm 91 mm [Hg] Stephen Canales RN blood pressure, systolic, left arm 142 mm [Hg] Stephen Canales RN blood pressure, diastolic, right arm 98 m m[Hg] Stephen Canales RN blood pressure, systolic, right arm 139 m m[Hg] Stephen Canales RN blood pressure, diastolic 91 mm[Hg] Imtiaz Canales RN blood pressure, systolic 141 mm[Hg] Stephen Canales RN pulse rate 87 /min Stephen Canales RN oxygen saturation, oximetry 98 % Stephen Canales RN respiratory rate E&M 16 /min Stephen chavez RN weight E&M 239 [lb_av] Stephen Canales RN height E&M 70.5 [in_i] Stephen Canales RN blood pressure, diastolic, left arm 90 mm [Hg] Stephen Canales RN blood pressure, systolic, left arm 127 mm [Hg] Stephen Canales RN blood pressure, diastolic, right arm 85 m m[Hg] Stephen Canales RN blood pressure, systolic, right arm 124 m m[Hg] Stephen Canales RN blood pressure, diastolic 90 mm[Hg] Imtiaz Canales RN blood pressure, systolic 127 mm[Hg] Stephen Canales RN pulse rate 65 /min Stephen Canales RN oxygen saturation, oximetry 98 % Stephen Canales RN respiratory rate E&M 16 /min Stephen chavez RN weight E&M 239 [lb_av] Stephen Canales RN blood pressure, diastolic, left arm 84 mm [Hg] Stephen Canales RN blood pressure, systolic, left arm 117 mm [Hg] Stephen Canales RN blood pressure, diastolic, right arm 86 m m[Hg] Stephen Canales RN blood pressure, systolic, right arm 137 m m[Hg] Stephen Canales RN blood pressure, diastolic 84 mm[Hg] Imtiaz Canales RN blood pressure, systolic 117 mm[Hg] Stephen Canales RN pulse rate 84 /min Stephen Canales RN oxygen saturation, oximetry 98 % Stephen Canales RN respiratory rate E&M 16 /min Stephen chavez RN weight E&M 238 [lb_av] Stephen Canales RN blood pressure, diastolic, left arm 104 m m[Hg] Stephen Canales RN blood pressure, systolic, left arm 149 mm [Hg] Stephen Canales RN blood pressure, diastolic, right arm 105 mm[Hg] Stephen Canales RN blood pressure, systolic, right arm 150 m m[Hg] Stephen Canales RN blood pressure, diastolic 104 mm[Hg] Imtiaz Canales RN blood pressure, systolic 149 mm[Hg] Stephen Portillos RN pulse rate 84 /min Stephen Canales RN oxygen saturation, oximetry 96 % Stephen Canales RN respiratory rate E&M 18 /min Stephen chavez RN weight E&M 237 [lb_av] Stephen Canales RN blood pressure, diastolic, left arm 101 m m[Hg] Stephen Canales RN blood pressure, systolic, left arm 162 mm [Hg] Stephen Canales RN blood pressure, diastolic, right arm 106 mm[Hg] Stephen Canales RN blood pressure, systolic, right arm 162 m m[Hg] Stephen Canales RN blood pressure, diastolic 101 mm[Hg] Imtiaz Canales RN blood pressure, systolic 162 mm[Hg] Stephen Canales RN pulse rate 68 /min Stephen Canales RN oxygen saturation, oximetry 98 % Stephen Canales RN respiratory rate E&M 16 /min Stephen chavez RN weight E&M 253 [lb_av] Stephen Canales RN blood pressure, diastolic, left arm 79 mm [Hg] Holly Bell blood pressure, systolic, left arm 129 mm [Hg] Holly Bell blood pressure, diastolic, right arm 84 m m[Hg] Holly Bell blood pressure, systolic, right arm 125 m m[Hg] Holly Bell blood pressure, diastolic 79 mm[Hg] Shaun Bell blood pressure, systolic 129 mm[Hg] Pan alixbrittny Bell pulse rate 67 /min Holly Bell oxygen saturation, oximetry 97 % Holly Bell respiratory rate E&M 18 /min Miguelito Bell weight E&M 234 [lb_av] Holly Bell blood pressure, diastolic 101 mm[Hg] Imtiaz Canales RN blood pressure, systolic 158 mm[Hg] Stephen Canales RN pulse rate 85 /min Stephen Canales RN oxygen saturation, oximetry 98 % Stephen Canales RN respiratory rate E&M 18 /min Stephen chavez RN weight E&M 250 [lb_av] Stephen Canales RN blood pressure, diastolic 101 mm[Hg] Gretchen seph [place] blood pressure, systolic 131 mm[Hg] Anibal eph [place] pulse rate 82 /min Andrzej [place] oxygen saturation, oximetry 96 % Andrzej [place] respiratory rate E&M 20 /min Andrzej [place] weight E&M 243 [lb_av] Andrzej Manharoonp weight E&M 242 [lb_av] Stephen Canales RN blood pressure, diastolic 90 mm[Hg] Imtiaz Canales [place] blood pressure, systolic 134 mm[Hg] Stephen Canales [place] pulse rate 82 /min Stephen Canales [place] oxygen saturation, oximetry 97 % Stephen Portillotone REID respiratory rate E&M 18 /min Stephen chavez RN ALLERGIES Allergy Name Onset Date Reaction Criticality Status SHADY INHIBITORS Low Criticality activ e LISINOPRIL Low Criticality active OXYCODONE Low Criticality active RESULTS Date Observation Value Provider Reference Range Interpretation Location LDL cholesterol, serum 30 mg/dL Prakash Yang folate, serum 6.0 NG/MLM [facility] 4.4 - 31.0 vitamin b12, serum 197.6 pg/mL [facility] 211.0 - 946.0 Low pro brain natriuretic peptide 126.1 pg/mL [facility] 0.0 - 125.0 High very low density lipoproteins 38.2 mg/dL [facility] 5.0 - 40.0 LDL/HDL (low-density lipoprotein/high-de nsity lipoprotein) ratio 1.3 RATIO [facility] - lipoprotein, beta, serum, point, quantitative, calculated 62.8 (?) [facility] 0.0 - 100.0 HDL cholesterol, serum 49.0 mg/dL [facility] 35.0 - 55.0 cholesterol, serum 150.0 mg/dL [facility] 0.0 - 200.0 triglyceride, serum, fasting 191.0 mg/dL [facility] 0.0 - 150.0 High ferritin, serum 211.1 ng/mL [facility] 30.0 - 400.0 iron, serum 116.0 ug/dL [facility] 31.0 - 144.0 iron saturation percent, serum 30.7 % [facility] 20.0 - 50.0 iron binding capacity, total 378.0 ug/dL [facility] 250.0 - 450.0 hemoglobin A1C, blood, as % of total hemoglobin 5.1 % [facility] 4.0 - 5.6 reticulocyte count, absolute 0.097 10*6 CELLS/UL [facility] - reticulocyte count, blood, uncorrected 2.12 % [facility] 0.50 - 2.00 High LDL cholesterol, serum 128 mg/dL [facility] very low density lipoproteins 32.6 mg/dL [facility] 5.0 - 40.0 LDL/HDL (low-density lipoprotein/high-de nsity lipoprotein) ratio 2.6 RATIO [facility] - lipoprotein, beta, serum, point, quantitative, calculated 128.4 (?) [facility] 0.0 - 100.0 High HDL cholesterol, serum 50.0 mg/dL [facility] 35.0 - 55.0 cholesterol, serum 211.0 mg/dL [facility] 0.0 - 200.0 High triglyceride, serum, fasting 163.0 mg/dL [facility] 0.0 - 150.0 High urea nitrogen/creatinine ratio, serum 6.3 [facility] - Estimated Glomerular Filtration Rate (calc) 106.7 (?) [facility] 59.0 - chloride, serum 97.4 mmol/L [facility] 98.0 - 107.0 Low potassium, serum 4.7 mmol/L [facility] 3.5 - 5.1 sodium, serum 139.0 mmol/L [facility] 136.0 - 145.0 creatinine, serum 0.8 mg/dL [facility] 0.7 - 1.2 carbon dioxide, venous blood 26.0 mmol/L [facility] 22.0 - 29.0 calcium, serum 9.8 mg/dL [facility] 8.6 - 10.2 urea nitrogen, blood 5.0 mg/dL [facility] 6.0 - 20.0 Low blood glucose, random 93.0 mg/dL [facility] 74.0 - 99.0 red blood cell distribution width, size density 48.8 fL [facility] - immature granulocytes, percentage of total cells, blood 0.3 % [facility] - nucleated red blood cells as percent of blood leukocytes 0.0 % [facility] - red blood cell (erythrocyte) count, per high power field 0.0 10*3/UL [facility] - eosinophils as percent of blood leukocytes 0.8 % [facility] - neutrophils as percent of blood leukocytes 70.5 % [facility] - Absolute Neutrophils 6.2 CELLS/UL [facility] 1.5 - 7.8 basophils as percent of blood leukocytes 0.6 % [facility] - Absolute Basophils 0.1 CELLS/UL [facility] 0.0 - 0.2 monocytes as percent of blood leukocytes 8.1 % [facility] - Absolute Monocytes 0.7 CELLS/UL [facility] 0.2 - 1.0 lymphocytes as percent of blood leukocytes 19.7 % [facility] - Absolute Lymphocytes 1.7 CELLS/UL [facility] 0.9 - 3.9 mean platelet volume 12.4 (?) [facility] 231.0 THOUSAND/UL [facility] 100.0 - 400.0 mean corpuscular hemoglobin concentration, RBC 31.3 G/DL [facility] 31.0 - 38.0 mean corpuscular hemoglobin, RBC 31.2 pg [facility] 25.0 - 35.0 mean corpuscular volume, RBC 99.6 fL [facility] 75.0 - 100.0 hematocrit, blood 51.7 % [facility] 35.0 - 55.0 hemoglobin, blood 16.2 g/dL [facility] 11.5 - 16.5 erythrocyte count, whole blood 5.2 MILLION/UL [facility] 3.5 - 5.5 prothrombin time (patient) 9.9 s [facility] 9.0 - 11.5 international normalized ratio (INR) 0.9 [facility] 0.9 - 1.1 hemoglobin A1C, blood, as % of total hemoglobin 5.0 % [facility] 4.0 - 6.0 platelet count 228 10*3/mm3 [facility] hematocrit, blood 44.3 % [facility] triglyceride, serum, fasting 149 mg/dL [facility] HDL cholesterol, serum 40 mg/dL [facility] lipoprotein, beta, serum, point, quantitative, calculated 102 mg/dL [facility] cholesterol, serum 172 mg/dL [facility] international normalized ratio (INR) 1.0 [facility] thyroid stimulating hormone, serum 1.110 u[IU]/mL [facility] alanine aminotransferase (SGPT), serum 81 1/L [facility] aspartate aminotransferase (SGOT), serum 66 1/L [facility] creatinine, serum 0.90 mg/dL [facility] potassium, serum 4.0 mmol/L [facility] sodium, serum 140 mmol/L [facility] platelet count 264 10*3/mm3 [facility] hematocrit, blood 44.2 % [facility] B-type natriuretic peptide 33.9 pg/mL [facility] creatinine, serum 0.81 mg/dL [facility] potassium, serum 3.7 mmol/L [facility] sodium, serum 144 mmol/L [facility] triglyceride, serum, fasting 313 mg/dL [facility] HDL cholesterol, serum 41 mg/dL [facility] LDL cholesterol, serum 24 mg/dL [facility] cholesterol, serum 128 mg/dL [facility] platelet count 274 10*3/mm3 [facility] hematocrit, blood 41.3 % [facility] alanine aminotransferase (SGPT), serum 56 1/L [facility] aspartate aminotransferase (SGOT), serum 56 1/L [facility] creatinine, serum 0.81 mg/dL [facility] potassium, serum 3.7 mmol/L [facility] sodium, serum 141 mmol/L [facility] yeast identified on urinalysis No [facility] mucus on urinalysis No [facility] urine crystals, microscopic None [facility] epithelial cells, urine, per microscopy Occasional [facility] casts, urine None [facility] WBC urine on microscopy 3-5 [facility] bacteria, urine microscopy Occasional [facility] RBC urine by microscopy None [facility] leukocyte esterase, urine, by dipstick Negative [facility] urobilinogen, urine, semiquantitative (dipstick) Normal [facility] nitrite, urine, semiquantitative Negative [facility] RBC, urine, dipstick Negative [facility] bilirubin, urine Negative [facility] ketones, urine, by test strip Negative [facility] glucose, urine, semiquantitative Normal [facility] protein, urine, semiquantitative (dipstick) Negative [facility] pH, urine, semiquantitative 6.0 [facility] specific gravity, urine 1.005 [facility] urine color Yellow [facility] appearance, urine Clear [facility] troponin I 0.05 ng/mL [facility] creatine kinase, serum 415 1/L [facility] B-type natriuretic peptide 274 pg/mL [facility] lipase, serum 104 1/L [facility] amylase, serum 33 1/L [facility] globulins, serum, total 4.4 g/dL [facility] estimated glomerular filtration rate >60 [facility] albumin/globulin ratio, serum 0.9 [facility] protein, total, serum 8.3 g/dL [facility] albumin, serum 3.9 g/dL [facility] bilirubin, serum, total 0.35 mg/dL [facility] alkaline phosphatase, serum 194 1/L [facility] alanine aminotransferase (SGPT), serum 52 1/L aspartate aminotransferase (SGOT), serum 48 1/L [facility] calcium, serum 9.2 mg/dL [facility] blood glucose, fasting 95 mg/dL [facility] creatinine, serum 0.84 mg/dL [facility] urea nitrogen, blood 5.6 mg/dL [facility] carbon dioxide, serum, total 29 mmol/L chloride, serum 101 mmol/L [facility] potassium, serum 3.7 mmol/L [facility] sodium, serum 135 mmol/L [facility] platelet count 239 10*3/uL [facility] red blood cell distribution width 12.6 % [facility] mean corpuscular hemoglobin concentration, RBC 32.8 g/dL [facility] mean corpuscular hemoglobin, RBC 31.6 pg [facility] mean corpuscular volume, RBC 96.5 fL [facility] hematocrit, blood 41.8 % [facility] hemoglobin, blood 13.7 g/dL [facility] erythrocyte (RBC) count 4.33 10*6/mm3 [facility] monocytes as percent of blood leukocytes 9.4 % lymphocytes as percent of blood leukocytes 30.7 % [facility] leukocyte count, blood 8.8 10*3/mm3 Amanuel Baig HISTORY OF MEDICATION USE Medication Status Instructions Dates Provider Indications Com joe QUIÑONEZ CQ 14 MG/24HR TRANSDERMAL PATCH 24 HOUR completed Apply one patch daily - Della Pearson AMLODIPINE BESYLATE 5 MG ORAL TABLET completed ONE TAB. DAILY - Della Pearson COREG 6.25 MG ORAL TABLET completed ONE TAB. TWICE DAILY - Della Pearson CLOPIDOGREL BISULFATE 75 MG ORAL TABLET completed Take once daily - Della Pearson ATORVASTATIN CALCIUM 80 MG ORAL TABLET completed One tablet daily - Della Pearson NITROSTAT 0.4 MG SUBLINGUAL TABLET SUBLINGUAL active Take 1 tab under the tongue for chest pain. May repeat twice 5 min. apart. If no relief, go to the ER Stephen Romeor RN PROAIR HFA 108 (90 Base) MCG/ACT INHALATION AEROSOL SOLUTION active 2 puffs every 4-6 hours Malcolm Toussaint MD ASPIRIN EC 81 MG ORAL TABLET DELAYED RELEASE completed one tab daily - Della Pearson CRESTOR 10 MG ORAL TABLET completed ONE TAB. DAILY - Allison Blake COREG 6.25 MG ORAL TABLET completed ONE TAB. TWICE DAILY - Allison Lozano POTASSIUM CHLORIDE ER 10 MEQ ORAL TABLET EXTENDED RELEASE completed 1 tablet by mouth daily - Stephen Canales RN LASIX 20 MG ORAL TABLET completed 1 tablet by mouth daily - Stephen Canales RN RANEXA 500 MG ORAL TABLET EXTENDED RELEASE 12 HOUR completed 1 tablet by mouth twice daily - Malcolm Toussaint MD LANSOPRAZOLE 30 MG ORAL CAPSULE DELAYED RELEASE completed daily - Malcolm Toussaint MD VENTOLIN HFA AEROSOL SOLUTION completed - Malcolm Toussaint MD SPIRIVA HANDIHALER 18 MCG INHALATION CAPSULE completed - Stephen Canales RN ADVAIR DISKUS 250-50 MCG/DOSE INHALATION AEROSOL POWDER BREATH ACTIVATED completed 1 puff twice daily - Malcolm Toussaint MD COREG 25 MG ORAL TABLET completed ONE TAB. TWICE DAILY - Malcolm Toussaint MD LISINOPRIL 40 MG ORAL TABLET completed ONE TAB. DAILY - Malcolm Toussaint MD FOLIC ACID TABLET completed one tab. daily - Malcolm Toussaint MD CRESTOR 10 MG ORAL TABLET completed ONE TAB. DAILY - Aneatris Brown ASPIRIN 81 MG ORAL TABLET completed ONE TAB. DAILY - Aneatris Brown PLAVIX 75 MG ORAL TABLET completed ONE TAB. DAILY - Malcolm Toussaint MD THIAMINE HCL TABLET completed 100mg daily - Stephen Canales RN OMEPRAZOLE 40 MG ORAL CAPSULE DELAYED RELEASE completed 1 capsule by mouth daily - Stephen Canales RN METOPROLOL TARTRATE 50 MG ORAL TABLET completed one tab. twice daily - Stephen Canales RN BENICAR HCT 40-25 MG ORAL TABLET completed ONE TAB. DAILY - Ken Pitts NORVASC 5 MG ORAL TABLET completed ONE TAB. DAILY - Stephen Canales RN PROAIR HFA AEROSOL SOLUTION completed 1 puff every 4-6 hours as needed - Stephen Canales RN XANAX 1 MG ORAL TABLET completed ONE TAB. DAILY - Andrzej Herrera HYDROCODONE-SHADY TAMINOPHEN 10-325 MG ORAL TABLET completed 1 tablet by mouth 4 times daily as needed - Della Pearson XANAX 1 MG ORAL TABLET completed ONE TAB. three times daily - Della Pearson SOCIAL HISTORY Date Observation Value Provider number of grandchildren Edson Phelan MD U kina Phelan MD number of years as a smoker 46 a Edson Phelan MD smoking, date started 1972 Edson Phelan MD smoking history, tot al pack/year 45 Edson Phelan MD smoking history, tot al pack/day 1 Edson Phelan MD cigarette use yes Edson Kitchen smoking status Current every day smoker U kina Phelan MD social history E&M Marital Statu s: Single L joey with family/friends E thnicity: Smoking History: P atjuany currently smokes every day. P atjuany has been counseled to quit. Edson Phelan MD social history reviewed E&M revi ewed - no changes required Edson Phelan MD smoking/tobacco cess ation, patient education and counseling yes Edson Phelan MD physical exercise, f requency, days per week no Della Pearson alcohol counseling yes Della yan In the past 3 months , have you been waking up wanting to use drugs? (CAGE substance use question #4) Y Della Pearson In the past 3 months , have you felt guilty or bad about using drugs? (CAGE substance use question #3) Y Della Pearson In the past 3 months , has anyone annoyed you by telling you to cut down or stop using drugs? (CAGE substance use question #2) Y Della Pearson In the past 3 months , have you felt you should cut down or stop using drugs?(CAGE substance use question #1) Y Della Pearson alcohol use, average drinks per day 4+ Della Pearson alcohol use yes Della palma caffeine use, averag e drinks per day 1+ Della Pearson drug use none Della palma number of years as a smoker 46 a Malcolm Toussaint MD social history reviewed E&M revi ewed - no changes required Malcolm Toussaint MD physical exercise, f requency, days per week no Della Michel alcohol counseling yes Della Quirogachristopher yan In the past 3 months , have you been waking up wanting to use drugs? (CAGE substance use question #4) Y Della Michel In the past 3 months , have you felt guilty or bad about using drugs? (CAGE substance use question #3) Y Della Michel In the past 3 months , has anyone annoyed you by telling you to cut down or stop using drugs? (CAGE substance use question #2) Y Della Michel In the past 3 months , have you felt you should cut down or stop using drugs?(CAGE substance use question #1) Y Dellatono Pearson alcohol use, average drinks per day 4+ Dellatono Pearson alcohol use yes Della Quirogatess garrido caffeine use, averag e drinks per day 1+ Della Michel smoking/tobacco cess ation, patient education and counseling yes Della Michel drug use none Della Quirogalonigeovannarebecasharan radhika smoking, date started 1972 Della Michel smoking history, tot al pack/day 1 Della Pearson cigarette use yes Della Janell carcamo smoking status Current every day smoker K cordell Michel social history reviewed E&M revi ewed - no changes required Malcolm Toussaint MD physical exercise, f requency, days per week no Della Pearson alcohol counseling yes Della Lola yan In the past 3 months , have you been waking up wanting to use drugs? (CAGE substance use question #4) Y Della Pearson In the past 3 months , have you felt guilty or bad about using drugs? (CAGE substance use question #3) Y Della Pearson In the past 3 months , has anyone annoyed you by telling you to cut down or stop using drugs? (CAGE substance use question #2) Y Della Pearson In the past 3 months , have you felt you should cut down or stop using drugs?(CAGE substance use question #1) Y Della Quirogalonihumberto alcohol use, average drinks per day 4+ Della Pearson alcohol use yes Della Lovelace minerva caffeine use, averag e drinks per day 1+ Della Pearson smoking/tobacco cess ation, patient education and counseling yes Della Pearson drug use none Della Lovelace minerva smoking, date started 1972 Della Quirogalonicarlotejalgeorge smoking history, tot al pack/year 45 Della Quirogalonicarlotejalgeorge smoking history, tot al pack/day 1 Della Quirogalonicarlocarlos alberto cigarette use yes Della Maciel carlos alberto smoking status Current every day smoker K cordell Quirogalonicarlocarlos alberto social history reviewed E&M revi ewed - no changes required Malcolm Toussaint MD physical exercise, f requency, days per week no Ishan Noriega alcohol counseling yes Ishan Noriega In the past 3 months , have you been waking up wanting to use drugs? (CAGE substance use question #4) Y Ishan Noriega In the past 3 months , have you felt guilty or bad about using drugs? (CAGE substance use question #3) Y Ishan Noriega In the past 3 months , has anyone annoyed you by telling you to cut down or stop using drugs? (CAGE substance use question #2) Y Ishan Noriega In the past 3 months , have you felt you should cut down or stop using drugs?(CAGE substance use question #1) Y Ishan Zayasenson alcohol use, average drinks per day 4+ Ishan Noriega alcohol use yes Ishan Dickey daily caffeine use, averag e drinks per day 1+ Malcolm Toussaint MD smoking/tobacco cess ation, patient education and counseling yes Ishan Hari drug use none Ishan Dickey daily smoking, date started 1972 Angelica Zayasenson smoking history, tot al pack/year 45 Ishan Hari smoking history, tot al pack/day 1 Ishan Hari cigarette use yes Ishan Marquez larson smoking status Current every day smoker Guy Christiansen Hari smoking history, tot al pack/year 45 Della Pearson physical exercise, f requency, days per week no Malcolm Toussaint MD alcohol counseling yes Malcolm farfan MD In the past 3 months , have you been waking up wanting to use drugs? (CAGE substance use question #4) Y Malcolm Toussaint MD In the past 3 months , have you felt guilty or bad about using drugs? (CAGE substance use question #3) Y Malcolm Toussaint MD In the past 3 months , has anyone annoyed you by telling you to cut down or stop using drugs? (CAGE substance use question #2) Y Malcolm Toussaint MD In the past 3 months , have you felt you should cut down or stop using drugs?(CAGE substance use question #1) Y Malcolm Toussaint MD alcohol use, average drinks per day 4+ Malcolm Toussaint MD alcohol use yes Malcolm Toussaint MD caffeine use, averag e drinks per day yes Malcolm Toussaint MD smoking/tobacco cess ation, patient education and counseling yes Malcolm Toussaint MD drug use none Malcolm Toussaint MD smoking, date started 1971 Malcolm Toussaint MD smoking history, tot al pack/year 42 Malcolm Toussaint MD smoking history, tot al pack/day 1 Malcolm Toussaint MD cigarette use yes Malcolm Toussaint MD smoking status Current every day smoker G niraj Guy Toussaint MD social history reviewed E&M revi ewed - no changes required Malcolm Toussaint MD social history E&M Marital Statu s: Single L joey with family/friends E thnicity: Smoking History: P atjuany currently smokes every day. P atjuany has been counseled to quit. Malcolm Toussaint MD social history reviewed E&M deidre ewed - no changes required Malcolm Toussaint MD physical exercise, f requency, days per week no Ishan Noriega alcohol counseling yes Ishan Noriega In the past 3 months , have you been waking up wanting to use drugs? (CAGE substance use question #4) Y Ishan Noriega In the past 3 months , have you felt guilty or bad about using drugs? (CAGE substance use question #3) Y Ishan Noriega In the past 3 months , has anyone annoyed you by telling you to cut down or stop using drugs? (CAGE substance use question #2) Y Ishan Noriega In the past 3 months , have you felt you should cut down or stop using drugs?(CAGE substance use question #1) Y Ishan Noriega alcohol use, average drinks per day 4+ Ishan Noriega alcohol use yes Ishan ambrosio caffeine use, averag e drinks per day yes Ishan Noriega smoking/tobacco cess ation, patient education and counseling yes Ishan Noriega drug use none Ishan ambrosio smoking, date started 1971 Angelica Noriega smoking history, tot al pack/year 42 Ishan Noriega smoking history, tot al pack/day 1 Ishan Noriega cigarette use yes Ishan larson smoking status Current every day smoker Guy Noriega social history E&M Marital Statu s: Single Soni cook with family/friends E thnicity: Smoking History: P an currently smokes every day. P an has been counseled to quit. Prakash Yang social history reviewed E&M revi ewed - no changes required Prakash Yang physical exercise, f requency, days per week no Ishan Hari alcohol counseling yes IshanMercedez Zayasenson In the past 3 months , have you been waking up wanting to use drugs? (CAGE substance use question #4) Y Ishan Noriega In the past 3 months , have you felt guilty or bad about using drugs? (CAGE substance use question #3) Y Ishan Noriega In the past 3 months , has anyone annoyed you by telling you to cut down or stop using drugs? (CAGE substance use question #2) Y Ishan Noriega In the past 3 months , have you felt you should cut down or stop using drugs?(CAGE substance use question #1) Y Ishan Hari alcohol use, average drinks per day 4+ Ishan Noriega alcohol use yes Ishan Noble daily caffeine use, averag e drinks per day yes Ishan Noriega smoking/tobacco cess ation, patient education and counseling yes Ishan Noriega drug use none Ishan Dickey brunoludwig smoking, date started 1972 Angelica easton Noriega smoking history, tot al pack/year 42 Ishan Noriega smoking history, tot al pack/day 1 Ishan Noriega cigarette use yes Ishan Marquez valleludwig smoking status Current every day smoker Guy Noriega physical exercise, f requency, days per week no Katlyn alcohol counseling yes Katlynher Saad madrigal In the past 3 months , have you been waking up wanting to use drugs? (CAGE substance use question #4) Y Katlyn In the past 3 months , have you felt guilty or bad about using drugs? (CAGE substance use question #3) Y Katlyn In the past 3 months , has anyone annoyed you by telling you to cut down or stop using drugs? (CAGE substance use question #2) Y Katlyn In the past 3 months , have you felt you should cut down or stop using drugs?(CAGE substance use question #1) Y Katlyn alcohol use, average drinks per day 4+ Katlyn caffeine use, averag e drinks per day yes [facility] drug use none [facility] smoking, date started 1971 [facility] smoking history, tot al pack/year 42 Katlyn smoking history, tot al pack/day 2 Katlyn cigarette use yes [facility] smoking status Current every day smoker [facility] social history reviewed E&M deidre longoria - no changes required Katlyn smoking/tobacco cess ation, patient education and counseling yes Malcolm Toussaint MD smoking/tobacco cess ation, patient education and counseling yes Malcolm Toussaint MD social history reviewed E&M reviewed Stephen Canales RN smoking history, tot al pack/year 42 Justin Pavon social history reviewed E&M reviewed Malcolm Toussaint MD smoking history, tot al pack/year 41 Stephen Canales RN social history reviewed E&M reviewed Andrzej Herrera smoking history, tot al pack/year 41 Andrzej Herrera smoking history, tot al pack/day 2 [facility] alcohol counseling yes Stephen wayne RN In the past 3 months , have you been waking up wanting to use drugs? (CAGE substance use question #4) Y Stephen Canales RN In the past 3 months , have you felt guilty or bad about using drugs? (CAGE substance use question #3) Y Stephen Canales RN In the past 3 months , has anyone annoyed you by telling you to cut down or stop using drugs? (CAGE substance use question #2) Y Stephen Canales RN In the past 3 months , have you felt you should cut down or stop using drugs?(CAGE substance use question #1) Y Stephen Canales RN alcohol use, average drinks per day 4+ Stephen Canales RN drug use none Katlyn Blunt smoking/tobacco cess ation, patient education and counseling yes Stephen Canales RN smoking history, tot al pack/year 40 Stephen Canales RN cigarette use yes Stephen Canales RN smoking, date started 1971 Alexandru jurado RN smoking status current every day smoker J elmira Canales RN social history reviewed E&M reviewed Stephen Canales RN drug use none Malcolm Toussaint MD social history reviewed E&M reviewed Stephen Canales RN social history reviewed E&M reviewed Stephen Canales RN social history reviewed E&M reviewed Stephen Canales RN social history reviewed E&M reviewed Stephen Canales RN social history reviewed E&M reviewed Malcolm Toussaint MD smoking/tobacco cess ation, patient education and counseling yes Stephen Canales RN social history reviewed E&M reviewed Stephen Canales RN smoking/tobacco cess ation, patient education and counseling yes Malcolm Toussaint MD social history E&M Marital Statu s: Single Soni cook with family/friends E thnicity: Malcolm Toussaint MD social history reviewed E&M reviewed Stephen Canales RN smoking/tobacco cess ation, patient education and counseling yes Malcolm Toussaint MD social history E&M Marital Statu s: Single Soni cook with family/friends E thnicity: Stephen Canales RN social history reviewed E&M reviewed Stephen Canales RN physical exercise, f requency, days per week no [employer] caffeine use, averag e drinks per day yes [employer] alcohol use, average drinks per day social basis only [employer] smoking status Smoker [employer] FUNCTIONAL STATUS Date Observation Value Provider HRA, CV Assess/Plan, Angina (inactive) Management Plan continue current therapy [facility] HRA, CV Assess/Plan, Angina (inactive) Management Plan continue current therapy [facility] HRA, CV Assess/Plan, Angina (inactive) Management Plan schedule PCI Malcolm Toussaint MD HRA, CV Assess/Plan, Angina (inactive) Management Plan continue current therapy Malcolm Toussaint MD HRA, CV Assess/Plan, Angina (inactive) Management Plan schedule PCI Malcolm Toussaint MD MENTAL STATUS Date Observation Value Provider assessment of judgme nt and insight E&M Alert and oriented to time, place and person. Mood and affect are normal. Stephen Canales RN assessment of judgme nt and insight E&M Alert and oriented to time, place and person. Mood and affect are normal. Malcolm Toussaint MD assessment of judgme nt and insight E&M Alert and oriented to time, place and person. Mood and affect are normal. Andrzej Herrera assessment of judgme nt and insight E&M Alert and oriented to time, place and person. Mood and affect are normal. Stephen Canales RN assessment of judgme nt and insight E&M Alert and oriented to time, place and person. Mood and affect are normal. Stephen Canales RN assessment of judgme nt and insight E&M Alert and oriented to time, place and person. Mood and affect are normal. Stephen Canales RN assessment of judgme nt and insight E&M Alert and oriented to time, place and person. Mood and affect are normal. Stephen Canales RN assessment of judgme nt and insight E&M Alert and oriented to time, place and person. Mood and affect are normal. Stephen Canales RN assessment of judgme nt and insight E&M Alert and oriented to time, place and person. Mood and affect are normal. Malcolm Toussaint MD assessment of judgme nt and insight E&M Alert and oriented to time, place and person. Mood and affect are normal. Stephen Canales RN assessment of judgme nt and insight E&M Alert and oriented to time, place and person. Mood and affect are normal. Stephen Canales RN assessment of judgme nt and insight E&M Alert and oriented to time, place and person. Mood and affect are normal. Stephen Canales RN FAMILY HISTORY Family Member Condition Mother Family History of Hy pertension: INSURANCE PROVIDERS Payer name Policy type / Coverage type [employer] [facility] [id number] ADVANCE DIRECTIVES Name Date DISCUSSED - NO DECISION MADE TREATMENT PLAN Date Name Performer Cardiology Follow up Edson bryant MD Cardiology Follow up Edson bryant MD Cardiology Follow up :Yosi Nelson is a 57 Years Old Male who was seen in the office today. 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 He reports feeling better since stopping the meds. He reports very occasional chest pains. He is to have the rest of his teeth pulled at the dentist but they won't proceed without him being on medications or getting clearance. I will have Dr. Toussaint address this as this is his pt. Edson Phelan MD Cardiology Follow up :CHOL: 150.0 (12/26/2016) LDL: 62.8 (12/26/2016) HDL: 49.0 (12/26/2016) T.0 (12/26/2016) His updated medication list for this problem includes: Atorvastatin Calcium 80 Mg Oral Tablet (Atorvastatin calcium) ..... One tablet daily Prakash Yang Cardiology Follow up :BP today: 142/96 P rior BP: 152/80 (12/19/2016) His updated medication list for this problem includes: Amlodipine Besylate 5 Mg Oral Tablet (Amlodipine besylate) ..... One tab. daily Coreg 6.25 Mg Oral Tablet (Carvedilol) ..... One tab. twice daily [facility] Cardiology Follow up :No chest pain. His updated medication list for this problem includes: Amlodipine Besylate 5 Mg Oral Tablet (Amlodipine besylate) ..... One tab. daily Coreg 6.25 Mg Oral Tablet (Carvedilol) ..... One tab. twice daily Clopidogrel Bisulfate 75 Mg Oral Tablet (Clopidogrel bisulfate) ..... Take once daily Nitrostat 0.4 Mg Sublingual Tablet Sublingual (Nitroglycerin) ..... Take 1 tab under the tongue for chest pain. may repeat twice 5 min. apart. if no relief, go to the er [facility] Follow up:We ight loss advised. [facility] Follow up:BP today: 152/80 P rior BP: 109/77 (10/31/2016) His updated medication list for this problem includes: Amlodipine Besylate 5 Mg Tabs (Amlodipine besylate) ..... One tab. daily Coreg 6.25 Mg Tabs (Carvedilol) ..... One tab. twice daily [facility] Follow up:His updated medication list for this problem includes: Nitrostat 0.4 Mg Sl Subl (Nitroglycerin) ..... Take 1 tab under the tongue for chest pain. may repeat twice 5 min. apart. if no relief, go to the er [facility] Follow up:Orders: P ROBNP, N TERMINAL (08722) F ERRITIN (457) F OLATE, SERUM (466) I NERY AND TOTAL IRON BINDING CAPACITY (4895) R ETICULOCYTE COUNT (793) V ITAMIN B12 (927) [facility] Follow up:CHOL: 211.0 (01/12/2016) HDL: 50.0 (01/12/2016) T.0 (01/12/2016) LDL: 128.4 (01/12/2016) Will increase Lipitor to 80mg daily. [facility] Follow up:He would like to quit smoking. Will try nicotine patch. [facility] Follow up:Cardiac cath showed that the stents are patent and there is no need for coronary intervention. He complains of episodes of SOB and occasional chest pain. His updated medication list for this problem includes: Nitrostat 0.4 Mg Sl Subl (Nitroglycerin) ..... Take 1 tab under the tongue for chest pain. may repeat twice 5 min. apart. if no relief, go to the er [facility] Follow up:Cardiac cath showed that the stents are patent and there is no need for coronary intervention. He complains of episodes of SOB and occasional chest pain. His updated medication list for this problem includes: Amlodipine Besylate 5 Mg Tabs (Amlodipine besylate) ..... One tab. daily Coreg 6.25 Mg Tabs (Carvedilol) ..... One tab. twice daily Clopidogrel Bisulfate 75 Mg Oral Tabs (Clopidogrel bisulfate) ..... Take once daily Nitrostat 0.4 Mg Sl Subl (Nitroglycerin) ..... Take 1 tab under the tongue for chest pain. may repeat twice 5 min. apart. if no relief, go to the er Aspirin Ec 81 Mg Tbec (Aspirin) ..... One tab daily [facility] Cardiology:His [facility] ed medication list for this problem includes: Atorvastatin Calcium 40 Mg Oral Tabs (Atorvastatin calcium) ..... One tablet daily [facility] Cardiology:STRONGLY ENCOURAGED TO STOP SMOKING; SMOKING CESSATION TECHNIQUES DISCUSSED. [facility] Cardiology:BP today: 109/77 P rior BP: 130/90 (03/15/2016) His updated medication list for this problem includes: Amlodipine Besylate 5 Mg Tabs (Amlodipine besylate) ..... One tab. daily Coreg 6.25 Mg Tabs (Carvedilol) ..... One tab. twice daily [facility] Cardiology:Orders: S NOMED-CT: [id number] Current Medications Documented ([facility]-[id number]) E KG ([id number]) C ardiac Cath - Left - [facility] (*) [facility] Cardiology:This week he had episodes of angina at rest requiring nitro subl x4. Will schedule cardiac cath. His updated medication list for this problem includes: Amlodipine Besylate 5 Mg Tabs (Amlodipine besylate) ..... One tab. daily Coreg 6.25 Mg Tabs (Carvedilol) ..... One tab. twice daily Clopidogrel Bisulfate 75 Mg Oral Tabs (Clopidogrel bisulfate) ..... Take once daily Nitrostat 0.4 Mg Sl Subl (Nitroglycerin) ..... Take 1 tab under the tongue for chest pain. may repeat twice 5 min. apart. if no relief, go to the er Aspirin 81 Mg Tabs (Aspirin) ..... One tab. daily Prakash Yang Cardiology:Increased his Lipitor to 40mg daily. I recommend to check lipid and hepatic panel in 1-2 months. Malcolm Toussaint MD Cardiology:STRONGLY ENCOURAGED TO STOP SMOKING; SMOKING CESSATION TECHNIQUES DISCUSSED. Malcolm Toussaint MD Cardiology:BP today: 130/90 P rior BP: 130/86 (01/11/2016) Malcolm Toussaint MD Cardiology:S/P stent to the PDA. Symptoms significantly improved. Malcolm Toussaint MD Cardiology:S/P stent to the PDA. Symptoms significantly improved. Malcolm Toussaint MD Cardiology Prakash aust[place] Cardiology:BP today: 130/86 P rior BP: 128/88 (07/13/2015) Prakash Yang Cardiology:STRONGLY ENCOURAGED TO STOP SMOKING; SMOKING CESSATION TECHNIQUES DISCUSSED. Prakash Yang Cardiology:Orders: Cardiac Cath - L/R - [facility] (*) Prakash Yang Cardiology:Still SOB with minimal exertion. PFT's were normal. Orders: Cardiac Cath - L/R - [facility] (*) Prakash Yang Cardiology Prakash [place] Cardiology:CHOL: 172 (06/21/2013) LDL: 102 (06/21/2013) HDL: 40 (06/21/2013) T (06/21/2013) His updated medication list for this problem includes: Crestor 10 Mg Tabs (Rosuvastatin calcium) ..... One tab. daily Prakash Yang Cardiology:BP today: 128/88 P rior BP: 123/86 (07/14/2014) His updated medication list for this problem includes: Aspirin 81 Mg Tabs (Aspirin) ..... One tab. daily Coreg 6.25 Mg Tabs (Carvedilol) ..... One tab. twice daily Prakash Yang Cardiology:Pt compla ins of SOB. Will obtain PFT's. Will refill the ProAir inhaler. Prakash [place] post cath: H is updated medication list for this problem includes: Aspirin 81 Mg Tabs (Aspirin) ..... One tab. daily Lisinopril 40 Mg Tabs (Lisinopril) ..... One tab. daily Coreg 25 Mg Tabs (Carvedilol) ..... One tab. twice daily Prior BP: 127/90 (02/20/2012) Labs Reviewed: C reat: 0.81 (02/20/2012) Malcolm Toussaint MD post cath: H is updated medication list for this problem includes: Plavix 75 Mg Tabs (Clopidogrel bisulfate) ..... One tab. daily Aspirin 81 Mg Tabs (Aspirin) ..... One tab. daily Crestor 10 Mg Tabs (Rosuvastatin calcium) ..... One tab. daily Lisinopril 40 Mg Tabs (Lisinopril) ..... One tab. daily Coreg 25 Mg Tabs (Carvedilol) ..... One tab. twice daily Ranexa 500 Mg [id number] (Ranolazine) ..... 1 tablet by mouth twice daily BP today: / Prior BP: 127/90 (02/20/2012) N uclear Stress Findings: 1. Normal myocardial perfusion imaging after vasodilator stress with Regadenoson. 2 . Abnormal left ventricular systolic function with a calculated ejection fraction of 47%. 3 . No obvious significant scintigraphic evidence of myocardial ischemia or scar. GC (06/19/2011) Chichi ardiac Cath: Known single-vessel coronary artery disease of proximal right coronary artery with previous stenting of proximal to mid RCA. No in-stent or new critical in stenosis seen. Focal hypokinesis in posterobasal segment. LVEF of 50%. - [facility] (02/22/2012) C ardiac Cath Comments: Successful percutaneous transluminal coronary angioplasty a 3.5 x 15 Integrity stent of mid right coronary artery, 90% to 0. The patient was given aspirin and Plavix. [facility] (11/07/2010) C arotid Doppler/Duplex: Normal GC (12/15/2010) C K: 415 (05/24/2011) Troponin I: 0.05 (05/24/2011) Hgb: 13.7 (05/24/2011) HCT: 41.3 (02/20/2012) Platelets: 274 (02/20/2012) R BC: 4.33 (05/24/2011) WBC: 8.8 (05/24/2011) B UN: 5.6 (05/24/2011) Creat: 0.81 (02/20/2012) Glucose: 95 (05/24/2011) N a+: 141 (02/20/2012) K+: 3.7 (02/20/2012) Cl: 101 (05/24/2011) Malcolm Toussaint MD : T he following medications were removed from the medication list: Norvasc 5 Mg Tabs (Amlodipine besylate) ..... One tab. daily BP today: 158/101 Prior BP: 131/101 (06/02/2008) N uclear Stress Findings: 1. Adenosine infusion per protocol 2 . No undue symptoms or arrhythmias [address] segment depression 4 . Stable hemodynamics 5 . Radiopharmaceutical injected at maximal coronary vasodilation 6 . Normal myocardial perfusion without ischemia or infarction 7 . LV ejection fraction of 40%, please correlate with Echo EF [facility] (05/20/2008) Echocardiogram: The left ventricular chamber size is normal. Normal left ventricular wall thickness.Normal left ventricular function. LV EF is estimated at 55% T he right ventricle is normal in size and function. M ild left atrial enlargement.Normal right atrium. T he mitral valve leaflets appear (sclerotic) thickened. T he aortic valve appears structurally normal. T he tricuspid valve is structurally normal. The right ventricular systolic pressure (RSVP) is estimated to be less than 3 0 mmHg and is within normal limits. N ormal pulmonic valve. N ormal pericardium with no significant pericardial effusion. No pleural effusion noted. N ormal aortic root. M inimal mitral regurgitation. N o evidence of aortic valve regurgitation. M inimal to (1+) mild tricuspid regurgitation. N o evidence of pulmonic valve regurgitation. [facility] (05/20/2008) Malcolm Toussaint MD : T he following medications were removed from the medication list: Norvasc 5 Mg Tabs (Amlodipine besylate) ..... One tab. daily BP today: 158/101 P rior BP: 131/101 (06/02/2008) Orders: E KG (CPT-98975) Malcolm Toussaint MD : O rders: T OBACCO USE CESSATION INTERMEDIATE 3-10 MINUTES (CPT-47754) Malcolm Toussaint MD test f/u, shortness of breath: B P today: 131/101 P rior BP: 134/90 (05/17/2008) Malcolm Toussaint MD test f/u, shortness of breath: B P today: 131/101 Prior BP: 134/90 (05/17/2008) N uclear Stress Findings: 1. Adenosine infusion per protocol 2 . No undue symptoms or arrhythmias [address] segment depression 4 . Stable hemodynamics 5 . Radiopharmaceutical injected at maximal coronary vasodilation 6 . Normal myocardial perfusion without ischemia or infarction 7 . LV ejection fraction of 40%, please correlate with Echo EF [facility] (05/20/2008) E chocardiogram: The left ventricular chamber size is normal. Normal left ventricular wall thickness.Normal left ventricular function. LV EF is estimated at 55% T he right ventricle is normal in size and function. M ild left atrial enlargement.Normal right atrium. T he mitral valve leaflets appear (sclerotic) thickened. T he aortic valve appears structurally normal. T he tricuspid valve is structurally normal. The right ventricular systolic pressure (RSVP) is estimated to be less than 3 0 mmHg and is within normal limits. N ormal pulmonic valve. N ormal pericardium with no significant pericardial effusion. No pleural effusion noted. N ormal aortic root. M inimal mitral regurgitation. N o evidence of aortic valve regurgitation. M inimal to (1+) mild tricuspid regurgitation. N o evidence of pulmonic valve regurgitation. [facility] (05/20/2008) Malcolm Toussaint MD office visit: O rders: E KG (CPT-78794) C omplete Echo (CPT-28223) S tress Test - Adenosine (66875) BP today: 134/90 Prior BP: / () Malcolm Toussaint MD Date Name HEMOGLOBIN A1c VITAMIN B12 RETICULOCYTE COUNT IRON AND TOTAL IRON BINDING CAPACITY FOLATE, SERUM FERRITIN PROBNP, N TERMINAL LIPID PANEL Cardiac Cath - Left - [facility] PROTHROMBIN TIME WIT H INR CBC (INCLUDES DIFF/P LT) BASIC METABOLIC PANE L W/EGFR LIPID PANEL HEMOGLOBIN A1c Cardiac Cath - L/R - [facility] DLCO - 03983 FRC - 07482 FVC - 16264 Carotid Duplex Bilat eral Complete Echo STR - Nuclear CT Angio, abdomen CT Angio, lower extr emity CREATINE KINASE, TOT AL B TYPE NATRIURETIC P EPTIDE (BNP) BASIC METABOLIC PANE L W/EGFR CBC (H/H, RBC, INDIC ES, WBC, PLT) BASIC METABOLIC PANE L W/EGFR Venous Doppler Bilat eral LE Arterial Duplex Uppe r Extremity Bilateral Cardiac Cath - Left - CNE Stress Test - Adenos ine Carotid Duplex Bilat eral Complete Echo Renal Artery Duplex Stress Test - Adenos ine Arterial Duplex Lowe r Extremity Bilateral Carotid Duplex Bilat eral Complete Echo HISTORY OF PROCEDURES Procedure Date Procedure Name Provider Procedure Notes S tatus EKG Edson Phelan MD completed SNOMED-CT: 950994247 Smoking Cessation Counseling Malcolm Toussaint MD completed SNOMED-CT: 008146294015686 Current Medications Documented Malcolm Toussaint MD completed SNOMED-CT: 291686568 Smoking Cessation Counseling Malcolm Toussaint MD completed EKG Ishan Noriega compl eted SNOMED-CT: 792110527789479 Current Medications Documented Ishan Zayasenson completed SNOMED-CT: 002521395 Smoking Cessation Counseling Malcolm Toussaint MD completed EKG Malcolm Toussaint MD completed SNOMED-CT: 487014239754204 Current Medications Documented Malcolm Toussaint MD completed SNOMED-CT: 842298369022660 Current Medications Documented Malcolm Toussaint MD completed FVC - 10790 Malcolm Toussaint MD completed FRC - 13464 Malcolm oTussaint MD completed DLCO - 81739 Malcolm Toussaint MD complete d SNOMED-CT: 609971239 Smoking Cessation Counseling Malcolm Toussaint MD completed Schedule Followup Malcolm Toussaint MD 6 months com pleted EKG Malcolm Toussaint MD completed SNOMED-CT: 140293513735584 Current Medications Documented Malcolm Toussaint MD completed EKG Malcolm Toussaint MD completed EKG Malcolm Toussaint MD completed Lipid Strip Alex Osborn MD comple hugo ePrescribe - Check t his box if eRx is used Malcolm Toussaint MD completed EKG Malcolm Toussaint MD completed EKG Malcolm Toussaint MD completed EKG Malcolm Toussaint MD completed EKG Malcolm Toussaint MD completed EKG Malcolm Toussaint MD completed
[2024-11-05 10:35] VITALS: BP 142/91; PULSE 106; RESP 20; TEMP 36.6; O2SAT 96; BMI 24.5
--- NOTE | 2024-11-05 10:37 | SUR.PREOP ---
Pt stated only had one small brown/yellow liquid bowel movement after taking prep. Dr. Barnes made aware and does not wish to proceed with colonoscopy. Patient will need to reschedule and follow a 2 day prep. Pt made aware. Discharge instructions with office number to call given along with instructions for the 2 day prep. Pt stated understanding.
== END 2024-11-05 10:35 | disposition home or self-care (01) ==
PROVIDERS: Referring Provider Internal Medicine; Visit Provider Internal Medicine Gastroenterology
PROC: 0DJD8ZZ Inspection of Lower Intestinal Tract, Via Natural or Artificial Opening Endoscopic (ICD-10-PCS; CPT 45378; principal; 2024-11-05 11:00)
DX: D64.9 Anemia, unspecified (principal)
CPT/HCPCS: 99211; G0463

== ENCOUNTER 2024-11-13 00:03 | Day surgery (SDC) | payer MEDICARE, MEDICAID, SELFPAY ==
[2024-11-06 11:31] VITALS: BMI 24.4
--- OUTSIDE RECORDS SUMMARY | 2024-11-13 00:09 | XMS_ITS | Clinical Summary ---
Author Organization [facility] Address [address] [place] [address] Care Team Providers Care Leadership Development Consultant Name Role Phone Unavailable Primary Care Provider Unavailabl e Social History Tobacco Use Types Packs/Day Years Used Date Smoking Tobacco: Never Assessed Sex and Gender Information Value Date Recorded Sex Assigned at Not on file Legal Sex Male 9:52 AM CDT Gender Identity Not on file Sexual Orientation Not on file Plan of Treatment Upcoming Encounters Date Type Department Care Team (Late st Contact Info) Description 11/27/2024 1:00 PM CDT Office Visit [facility] Oncology and Hematology - Marko [address] [facility] [address] [place] [address] Hung eWst MD [address] [facility] [address] [place] [address] Health Maintenance Due Date Last Done Comments DTAP/TDAP/TD VACCINES (1 - Tdap) 09/28/1979 COLORECTAL SCREENING 2005 Colorectal Cancer Screening 2005 FIT-DNA Q 3 years 2005 FIT/FOBT Q 1 year 2005 Flex Sig/CT Colonography Q 5 years 2005 ZOSTER VACCINE (1 of 2) 2010 INFLUENZA VACCINE (#1) 2024 RSV VACCINE (60+ or ) (1 - 1-dose 75+ series) 09/28/[address] [place] [id number]
[2024-11-13 07:34] VITALS: BP 140/85; PULSE 95; RESP 20; TEMP 36.5; O2SAT 99; BMI 24.1
[2024-11-13] MEDS: LACTATED RINGERS 1,000 ML 150 ML IV CONT (07:43)
--- NOTE | 2024-11-13 07:54 | P.PNAN_ITS ---
Anes - Initial Pre Proc Eval Procedure: Operation Date: 11/13/24 08:30 Proposed Procedures p Colonoscopy - Abdiaziz Barnes MD Date/Time: 11/13/24 07:54 Surgeon: Abdiaziz Barnes MD Pre Op Diagnosis: Anemia, unspecified Patient Data Age: 64 Gender: M Height: 1.8 m Weight: 78.6 kg Last Vital Signs Temp 97.7 F 11/13/24 07:34 Pulse 95 11/13/24 07:34 Resp 20 11/13/24 07:34 BP 140/85 11/13/24 07:34 Pulse Ox 99 11/13/24 07:34 O2 Del Method Room Air 11/13/24 07:34 Allergies Allergy/AdvReac Type Severity Reaction Status Date / Time No Known Allergies Allergy Mild Verified 11/13/24 07:33 Home Medications ?Medication ?Instructions ?Recorded ?Confirmed ?Type pdvdlen-njqwwrkumkwkc-urzdzhor 250 1 tablet PO PRN headache 11/05/24 11/06/24 History mg-250 mg-65 mg tablet (Excedrin Migraine) Patient hx anesthesia problems: none Family hx anesthesia problems: none Results Review: All pre-operative results and documents have been reviewed as part of the pre- operative evaluation. [facility] Past Medical History Medical History CAD (coronary artery disease) COPD (chronic obstructive pulmonary disease) Surgical History Surgical History History of coronary artery stent placement Social History Social History Smoking packs per day: 1 Smoking cigarettes per day: 20.0 Years smoked: 55 Smoking pack-years: 55.00 Smoking status: Current every day smoker Tobacco type: cigarettes Alcohol intake: current Drinks per week: 4 Substance use: current Substance use type: marijuana and methamphetamine Other substance usage details: daily Living arrangements: alone Spiritual care concerns: No Anes - Eval Final PreProcedure Day of Procedure 11/13/24 07:54 Patient weight: normal Lungs: normal air movement Airway: Mallampati scale class II and special considerations (Edentulous. ) Neurological: alert and oriented Last oral intake: >/= 8 hours ASA classification: III Emergent: no Anesthetic plan: proceed Anesthesia type and monitoring: general GIVS and standard monitoring Results Review: All pre-operative results and documents have been reviewed as part of the pre- operative evaluation. 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 Heavy smoker 55 pack years, marijuana regularly. Pt denies cp or sob. Informed Consent: The patient's anesthetic plan and its attendant risks and benefits were discussed with the patient/family/POA. Questions were solicited and answers provided to the satisfaction of the patient/family/POA.
--- NOTE | 2024-11-13 09:11 | PM.IMHP ---
H&P: HPI History of Present Illness Date/Time: 11/13/24 09:11 Chief Complaint: Screening colonoscopy Narrative: This is the patient's 2nd or 3rd colonoscopy. his last colonoscopy was 20 years ago. There are no GI symptoms and there is no family history of colorectal cancer. Review of Systems Review of Systems: All systems reviewed & are unremarkable except as noted in HPI and below PMFSH Past Medical History Medical History CAD (coronary artery disease) COPD (chronic obstructive pulmonary disease) Surgical History Surgical History History of coronary artery stent placement Social History Social History Smoking packs per day: 1 Smoking cigarettes per day: 20.0 Years smoked: 55 Smoking pack-years: 55.00 Smoking status: Current every day smoker Tobacco type: cigarettes Alcohol intake: current Drinks per week: 4 Substance use: current Substance use type: marijuana and methamphetamine Other substance usage details: daily Living arrangements: alone Spiritual care concerns: No Meds Home Medications and Allergies Home Medications ?Medication ?Instructions ?Recorded ?Confirmed ?Type nxsrflb-edduifocxuexj-ehxpdmlx 250 1 tablet PO PRN headache 11/05/24 11/06/24 History mg-250 mg-65 mg tablet (Excedrin Migraine) Allergies Allergy/AdvReac Type Severity Reaction Status Date / Time No Known Allergies Allergy Mild Verified 11/13/24 07:33 Vital Signs Vital Signs - 24 hr 11/13/24 07:34 Temperature 97.7 F Pulse Rate 95 Respiratory Rate 20 Blood Pressure 140/85 Pulse Oximetry 99 Oxygen Delivery Room Air Exam Const: General: cooperative and healthy appearing Resp: Effort & Inspection: normal respiratory effort and able to speak in complete sentences Auscultation: clear to auscultation bilaterally Cardio: Rate: regular rate Rhythm: regular rhythm GI: Inspection: normal to inspection GI Palp: No No hepatosplenomegaly present Auscultation: normal bowel sounds Rectal Exam: deferred Skin: General skin exam: normal color Psych: Appearance: grossly normal Mental Status: mental status grossly normal Assessment and Plan Assessment and plan (1) Encounter for screening colonoscopy: Code(s): Z12.11 - Encounter for screening for malignant neoplasm of colon Status: Acute Assessment and Plan: The patient is deemed a good candidate for the procedure. Consent signed. Will proceed.
--- NOTE | 2024-11-13 09:40 | S_PTH ---
PATIENT: oYsi Nelson LOC: [facility] U#:[id number] AGE/SX: 64/M ROOM: RE11/13/[address]: Abdiaziz Barnes MD : 1960 BED: DIS: 11/13/2024 SPEC #: [id number] RECD: 11/13/24 09:59 STATUS: JUAN ANTONIO REQ #: [id number] SHY: 11/13/24 09:[address]: Abdiaziz Barnes DEPT: [facility] Surgical RECD BY: Diane Stein Tissues: A - Colon Polypectomy B - Colon Polypectomy Procedures: Hematoxylin and Eosin Stain Gross and Microscopic Level 4
[2024-11-13 09:42] VITALS: BP 109/69; PULSE 84; RESP 20; O2SAT 100
[2024-11-13 09:50] VITALS: BP 114/73; PULSE 80; RESP 20; O2SAT 100
[2024-11-13 10:00] VITALS: BP 128/75; PULSE 88; RESP 20; O2SAT 100
== END 2024-11-13 10:31 | disposition home or self-care (01) ==
PROVIDERS: Visit Provider Internal Medicine Gastroenterology
PROC: 0DJD8ZZ Inspection of Lower Intestinal Tract, Via Natural or Artificial Opening Endoscopic (ICD-10-PCS; CPT 45378; principal; 2024-11-13 08:30)
DX: Z12.11 Encounter for screening for malignant neoplasm of colon (principal); D12.5 Benign neoplasm of sigmoid colon; K62.1 Rectal polyp; F17.210 Nicotine dependence, cigarettes, uncomplicated; F12.90 Cannabis use, unspecified, uncomplicated; F15.90 Other stimulant use, unspecified, uncomplicated
CPT/HCPCS: 45385; 88305; J2003; J2704; J7120

== ENCOUNTER 2025-01-05 14:16 | Outpatient (CLI) | payer MEDICARE, MEDICAID, SELFPAY ==
--- NOTE | ~2025-01-05 | PE_ITS ---
EXAMINATION: PET_PETPSMAST_PT DATE: 01/06/2025 08:07 INDICATION: Prostate cancer TECHNIQUE: 3.463 mCi of Illucix Ga-68([id number]) was administered i.v. Low dose computed ty graphy (CT) images were acquired from the base of the brain to the base of the brain to the proximal thighs for attenuation correction and anatomic localization. Positron emission tomography (PET) image s were acquired in the same distribution beginning 82 minutes after injection. Images including fused PET/CT images were reconstructed in axial, coronal, and sagittal planes. Automated exposure control technique was employed. The dose-length product was 760.29mGy-cm. COMPARISON: None FINDINGS: Head/neck: Typical pattern of symmetric physiologic increased activity in the lacrimal, parotid and submandibula r glands as well as along the mucosa of the nasal and oral cavities, pharynx and hypopharynx. No path ologically enlarged cervical lymphadenopathy or suspicious foci of increased uptake in the visualized head or neck. Chest: Mild emphysema. There is elevation the left hemidiaphragm with left basilar compressive atelectasis. No suspicious pulmonary nodules, pneumonia, pulmonary edema or pleural effusion. Mild hepatomegaly. A therosclerotic coronary artery calcific location. No pericardial effusion. Thoracic aorta is normal i n caliber. No pathologically enlarged or PSMA avid thoracic lymphadenopathy. Abdomen/pelvis/proximal thighs: Physiologic renal accumulation and excretion of activity in the kidneys, bladder and along portions o f ureters. There is asymmetric wall thickening of the left side of the incompletely distended bladder . Photopenic defects associated with low-attenuation renal cysts measuring 3.0 cm the right kidney an d 2.1 cm the left kidney. Prostatomegaly measuring 5.2 x 4.1 cm. There is an approximately 2.5 simila r region of prominent increased activity with maximal SUV of 57.7 occupying a large portion of the le ft inferior aspect of the prostate with smaller less intense region with maximal SUV of 13.9 and the more posterior and superior left side of the prostate, both regions consistent with primary prostate cancer. Normal degree and slightly heterogenous pattern of increased uptake throughout the liver and spleen without radiologic correlate or dominant PSMA avid lesion. Cholecystectomy clips the gallbladd er fossa. Small splenic calcific location consistent with old granulomatous disease. Pancreas and benjie ateral adrenal glands are unremarkable. Moderate uptake scattered throughout the bowels with typical duodenal and proximal jejunal predominance and without radiologic correlate, also likely physiologic. There is a single small focus of increased uptake with maximal SUV of 4.8 position in the fat overly ing the left obturator internus muscle most likely related to small activity in the left ureter but c annot exclude a very small metastatic lymph node which is unable to be distinguished from the ureter or adjacent vasculature. Vasculature on the CT images. No other abnormal foci of increased uptake or pathologically enlarged lymphadenopathy in the abdomen, pelvis or proximal thighs. Musculoskeletal: Mild lumbar levocurvature with severe spondylosis. Severe right hip osteoarthritis which could be rel ated to osteonecrosis with suggestion of additional osteonecrosis at the left femoral head where ther e is only mild left hip osteoarthritis.. No suspicious lytic, blastic or abnormally PSMA avid bone le sions. IMPRESSION: 1. Large region of marked increased asymmetric activity at the left side of the prostate consistent w ith primary prostate cancer. 2. Single mildly suspicious focus of increased uptake in the left obturator region most likely relate d to urine activity in the left ureter but could not exclude an early metastatic lymph node. No other lesions suspicious for metastatic disease. Reviewed, dictated and finalized at location A. IMPRESSION: 1. Large region of marked increased asymmetric activity at the left side of the prostate consistent with primary prostate cancer. 2. Single mildly suspicious focus of increased uptake in the left obturator reg ion most likely related to urine activity in the left ureter but could not excl ude an early metastatic lymph node. No other lesions suspicious for metastatic disease.
--- OUTSIDE RECORDS SUMMARY | 2025-01-05 14:23 | XMS_ITS | Clinical Summary ---
Author Organization [facility] [address] Address [address] [facility] [place] [address] Care Team Providers Care Back Up Machine Operator Name Role Phone Unavailable Primary Care Provider [...] Care Team (Late st Contact Info) Description 01/08/2025 1:00 PM CDT Office Visit [facility] Oncology and Hematology - Marko [address] [facility] [address] [place] [address] Hung West MD [address] [facility] [address] [place] [address] Health Maintenance Due Date Last Done Comments DTAP/TDAP/TD VACCINES (1 - Tdap) 09/28/1979 COLORECTAL SCREENING 2005 Colorectal Cancer Screening 2005 FIT-DNA Q 3 years 2005 FIT/FOBT Q 1 year 2005 Flex Sig/CT Colonography Q 5 years 2005 ZOSTER VACCINE (1 of 2) 2010 INFLUENZA VACCINE (#1) 2025 RSV VACCINE (60+ or ) (1 - 1-dose 75+ series) 09/28/[address] [place] [id number]
== END 2025-01-05 14:17 | disposition home or self-care (01) ==
PROVIDERS: Visit Provider Urology
DX: C61 Malignant neoplasm of prostate (principal)
CPT/HCPCS: 78815; A9596

== ENCOUNTER 2025-04-07 09:30 | Outpatient (CLI) | payer MEDICARE, MEDICAID, SELFPAY ==
[2025-04-07 11:17] LABS: Anion Gap 8 mmol/L (4-12); Blood Urea Nitrogen 15 mg/dL (9-20); Calcium 8.3 mg/dL (8.4-10.2); Carbon Dioxide 25 mmol/L (22-30); Chloride 102 mmol/L (98-107); Estimated Glomerular Filt Rate > 60; Glucose 171 mg/dL (65-110); Potassium 3.7 mmol/L (3.4-5.0); Sodium 135 mmol/L (137-145)
== END 2025-04-07 09:31 | disposition home or self-care (01) ==
LOC: ANHLAB 09:34
PROVIDERS: Visit Provider Urology
DX: C61 Malignant neoplasm of prostate (principal)
CPT/HCPCS: 36415; 80048

== ENCOUNTER 2025-04-21 15:36 | Inpatient (IN) | payer MEDICARE, MEDICAID, SELFPAY ==
[2025-04-21] VITALS (9 sets, daily range): BP systolic 118–139; BP diastolic 79–98; PULSE 90–105; RESP 16–25; TEMP 36.4–36.8; O2SAT 93–98; BMI 24.4
--- NOTE | ~2025-04-21 | CT_ITS ---
CTA chest PE abdomen pel HISTORY:sob, le edema, prostate cancer, dark stools . COMPARISON: None. TECHNIQUE: Following the noncontrasted director of property management, axial images of the thorax were obtained following infusion of 100 cc of Isovue 370. Post-processing on an independent workstation was performed to reconstruct MIP images for evaluation of the thoracic vasculature. FINDINGS: There is no pulmonary embolism, aortic dissection, thoracic aneurysm or pericardial fluid. Heart is enlarged. An 11 x 21 mm pulmonary nodule within the right upper lobe. There is a 1.4 mm pulmonary nodule within the left upper lobe. There are atelectasis at the lung bases. Small bilateral pleural effusions are noted. There is scarring within the right middle lobe. There are centrilobular emphysema. Enlarged mediastinal lymph nodes measuring up to 1.9 cm in short axis dimension. Limited evaluation of the upper abdomen demonstrates no gross abnormalities. Review of bone windows demonstrates no osteoblastic or lytic lesions. IMPRESSION: There is no pulmonary embolism, aortic dissection, pericardial fluid or thoracic aneurysm. Pulmonary nodules within the upper lungs bilaterally measuring up to 21 mm. There are enlarged mediastinal lymph nodes measuring up to 1.9 cm in short axis dimension. Malignancy cannot be excluded. Follow-up PET/CT is recommended. CTA chest PE abdomen pel INDICATION:sob, le edema, prostate cancer, dark stools . COMPARISON: None. TECHNIQUE: Axial images of the abdomen and pelvis were obtained following infusion of 100 mL Isovue 370. Dose optimization technique was utilized. FINDINGS: The lung bases are clear. The liver parenchyma is unremarkable. No intrahepatic mass or ductal dilatation is evident. The gallbladder is unremarkable. The pancreas and spleen are normal in appearance. The adrenal glands are symmetric in size. The kidneys demonstrate symmetric uptake and excretion of contrast. No cystic mass is evident. There is no solid mass. There is no hydronephrosis. The bladder and rectum are normal. No free intraperitoneal fluid or air is evident. There is no significant retroperitoneal lymphadenopathy. The aorta, visceral vessels and renal arteries demonstrate normal caliber and patency. The lower thoracic and lumbar vertebrae are in normal alignment. IMPRESSION: No acute abnormality is noted in the abdomen and pelvis. All CT scans at this facility are performed using low dose modulation techniques as appropriate to perform exam including the following: automated exposure control; use of iterative reconstruction technique; adjustment of the mA and/or kV according to patient size (this includes techniques or standardized protocols for targeted exams where dose is matched to indication/reason for exam). Reviewed, dictated and finalized at location S. ER MEDICAL AND LAB DIRECTOR IMPRESSION: There is no pulmonary embolism, aortic dissection, pericardial fluid or thoraci c aneurysm. Pulmonary nodules within the upper lungs bilaterally measuring up to 21 mm. The re are enlarged mediastinal lymph nodes measuring up to 1.9 cm in short axis di mension. Malignancy cannot be excluded. Follow-up PET/CT is recommended. CTA chest PE abdomen pel INDICATION:sob, le edema, prostate cancer, dark stools . COMPARISON: None. TECHNIQUE: Axial images of the abdomen and pelvis were obtained following infu [place] of 100 mL Isovue 370. Dose optimization technique was utilized. FINDINGS: The lung bases are clear. The liver parenchyma is unremarkable. No intrahepatic mass or ductal dilatation is evident. The gallbladder is unremarkable. The pancreas and spleen are jorge l in appearance. The adrenal glands are symmetric in size. The kidneys demonstrate symmetric uptake and excretion of contrast. No cystic m ass is evident. There is no solid mass. There is no hydronephrosis. The bladder and rectum are normal. No free intraperitoneal fluid or air is evid ent. There is no significant retroperitoneal lymphadenopathy. The aorta, visceral vessels and renal arteries demonstrate normal caliber and p atency. The lower thoracic and lumbar vertebrae are in normal alignment. IMPRESSION: No acute abnormality is noted in the abdomen and pelvis. All CT scans at this facility are performed using low dose modulation techniqu es as appropriate to perform exam including the following: automated exposure c ontrol; use of iterative reconstruction technique; adjustment of the mA and/or kV according to patient size (this includes techniques or standardized protocol s for targeted exams where dose is matched to indication/reason for exam).
--- NOTE | ~2025-04-21 | US_ITS ---
EXAM/PROCEDURE: US arterial ankle brachial ind HISTORY: Weak pedal pulse COMPARISON: None available. TECHNIQUE: ANGELA study performed FINDINGS: Right and left brachial pressure readings were 133 and 127 Right and left posterior tibial pressure readings are 131 and 122 Right and left dorsalis pedis pressure readings are 1:30 and 116 measurements are 111 and 89 Right and left ABIs are 0.98 and 0.19 respectively. Plethysmography appears grossly normal. IMPRESSION: Both ABIs are within normal limits. There is slight diminution of the left great toe index of 0.67. Reviewed, dictated and finalized at location A. D SCOUT IMPRESSION: Both ABIs are within normal limits. There is slight diminution of the left grea t toe index of 0.67.
--- NOTE | ~2025-04-21 | US_ITS ---
EXAM/PROCEDURE: US venous doppler LE BI HISTORY: Edema. Prostate cancer COMPARISON: None available. TECHNIQUE: Grayscale, color Doppler, and spectral analysis. FINDINGS: All major venous structures appear patent and compressible from the groin to the popliteal, at least, the imaged calf veins are also patent. No significant abnormality is seen. No adenopathy is seen. IMPRESSION: No acute findings. Reviewed, dictated and finalized at location A. BREAK CUTTER IMPRESSION: No acute findings.
--- NOTE | 2025-04-21 15:57 | ECG_ITS ---
Test Date: 2025-04-21 16:03:17 Measurements Intervals [place] Rate: 102 P: 0 KS: 0 QRS: -31 QRSD: 130 T: 95 QT: 366 QTc: 478 Interpretive Statements SINUS TACHYCARDIA WITH PREMATURE ATRIAL COMPLEXES LEFT ANTERIOR FASCICULAR BLOCK RIGHT BUNDLE BRANCH BLOCK [120+ ms QRS DURATION, UPRIGHT V1, 40+ ms S IN I/aVL/V4/V5/V6] MODERATE T-WAVE ABNORMALITY, CONSIDER ANTERIOR AND LATERAL ISCHEMIA [-0.1+ mV T-WAVE IN I/aVL/V5/V6] ABNORMAL ECG No previous ECG available for comparison Electronically Signed On 04-21-2025 17:23:00 NETWORK PRICING CONSULTANT by Clyde Rogers M.D.
[2025-04-21 16:10] LABS: Hematocrit 31.3 % (42.0-52.0); Hemoglobin 9.4 g/dL (14.0-18.0); Immature Granulocyte Percent A 0.7 % (0-0.5); Lymphocytes Absolute Auto 1.97 K/mm3 (0.9-3.2); Mean Corpuscular HGB Conc 30.0 g/dl (32-36); Mean Corpuscular Hemoglobin 23.3 pg (26-34); Mean Corpuscular Volume 77.7 fl (80-100); Nucleated Red Blood Cells Absolute Auto 0.000 K/mm3 (0.0-0.012); Nucleated Red Blood Cells Perc 0.0 % (0.0-0.2); Platelet Count Result 363 k/mm3 (150-375); Red Blood Count 4.03 M/mm3 (4.6-6.20); White Blood Count 9.1 K/mm3 (4.5-10.0)
[2025-04-21 16:20] LABS: Alanine Aminotransferase 36 U/L (6-50); Albumin Level 3.5 g/dL (3.5-5.1); Alkaline Phosphatase 119 U/L (38-126); Anion Gap 6 mmol/L (4-12); Aspartate Amino Transferase 53 U/L (17-59); Bilirubin,Total 0.6 mg/dL (0.2-1.3); Blood Urea Nitrogen 21 mg/dL (9-20); Calcium 7.9 mg/dL (8.4-10.2); Carbon Dioxide 22 mmol/L (22-30); Chloride 103 mmol/L (98-107); Estimated CRCL calculation 78 ml/min; Estimated Glomerular Filt Rate > 60; Glucose 130 mg/dL (65-110); Potassium 3.7 mmol/L (3.4-5.0); Sodium 131 mmol/L (137-145); Total Protein 7.1 g/dL (6.3-8.2)
[2025-04-21 16:21] LABS: INR 1.2; Prothrombin Time 15.6 Seconds (11.1-14.7)
[2025-04-21 16:22] LABS: Partial Thromboplastin Time 33.4 Seconds (22.3-36.8)
--- NOTE | 2025-04-21 16:29 | ED_ITS ---
HPI - SOB/Dyspnea General Chief Complaint: Shortness of Breath/Dyspnea <Frieda Blake PA-C - Last Filed: 04/22/25 16:28> Stated Complaint: dyspnea <JOHN Underwood Last Filed: 04/22/25 16:28> Time Seen by Provider: 04/21/25 15:52 <JOHN Underwood Last Filed: 04/22/25 16:28> Source: patient <JOHN Underwood Last Filed: 04/22/25 16:28> Mode of arrival: ambulatory <JOHN Underwood Last Filed: 04/22/25 16:28> Limitations: no limitations <JOHN Underwood Last Filed: 04/22/25 16:28> History of Present Illness HPI Narrative: This is a 64 year old male that presents to the ER for shortness of breath. Ongoing over the last couple of days. Reports associated lower extremity edema. Reports recently diagnosed prostate cancer for which he has not started treatment yet. Reports a cough. Reports his stools have been dark. Denies fever. <JOHN Underwood Last Filed: 04/22/25 16:28> Related Data Home Medications: Home Medications ?Medication ?Instructions ?Recorded ?Confirmed ?Last Taken ?Type rwdxpom-wsggwjlghsprm-gklgdwdm 250 1 tablet PO PRN hea dache 11/05/24 04/21/25 04/21/25 History mg-250 mg-65 mg tablet (Excedrin Migraine) <JOHN Underwood Last Filed: 04/22/25 16:28> Allergies/Adverse Reactions: Allergies Allergy/AdvReac Type Severity Reaction Status Date / Time No Known Allergies Allergy Mild Verified 04/21/25 22:30 <JOHN Underwood Last Filed: 04/22/25 16:28> Review of Systems 2 Review of Systems: All systems reviewed & are unremarkable except as noted in HPI and below <JOHN Underwood Last Filed: 04/22/25 16:28> [facility] Past Medical History Medical History: Medical History (Updated 04/22/25 @ 14:54 by Shital Rasmussen APRN) Hepatitis C Testicular cancer Prostate cancer CAD (coronary artery disease) COPD (chronic obstructive pulmonary disease) <Frieda Blake PA-C - Last Filed: 04/22/25 16:28> Surgical History Surgical History: Surgical History History of orchiectomy Hx of cholecystectomy 2009 History of coronary artery stent placement 2 stents <Frieda Blake PA-C - Last Filed: 04/22/25 16:28> Family History Family History: Family History Other No significant family history <Frieda Blake PA-C - Last Filed: 04/22/25 16:28> Social History Social History: Social History (Updated 04/21/25 @ 20:05 by Niki Benz APRN) Social History: He lives home alone and is . he has 2 sons. 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 code status : full code Smoking packs per day: 1 Smoking cigarettes per day: 20.0 Years smoked: 55 Smoking pack-years: 55.00 Smoking status: Current every day smoker Tobacco type: cigarettes Alcohol intake: current Drinks per week: 4 Substance use: current Substance use type: marijuana, crack/cocaine and amphetamines Other substance usage details: few x per week Last use: 04/21/25 Lack of Transportation: YES Lack of Food: Sometimes True Current Housing: I Have Housing Concerned About Future Housing: No Difficulty Paying Gas/Electric Bills: YES Difficulty Paying for Meds: No Currently Unemployed: No Education: Grade School Difficulty w/ Childcare or Family Care: No Living arrangements: alone Spiritual care concerns: No <JOHN Underwood Last Filed: 04/22/25 16:28> Exam 2 Narrative: GENERAL: Chronically ill-appearing, well-nourished, and in no acute distress. HEAD: Normocephalic, atraumatic. EYES: EOMI. ENT: Nares clear, no rhinorrhea or epistaxis. Mucous membranes moist. Oropharynx without tonsillar hypertrophy exudate or other lesions. CHEST: Clear to auscultation. No respiratory distress. No wheezes rales or rhonchi HEART: Regular rate and rhythm. No murmur heard. Normal peripheral pulses. ABDOMEN: Soft, nontender, nondistended, normal active bowel sounds. EXTREMITIES: Normal range of motion. Pitting edema to the bilateral lower extremities (R>L) SKIN: Warm, dry, no rash. NEURO: No focal deficits. Alert and oriented x3. PSYCH: Normal mood and affect RECTAL: Hemoccult-positive <JOHN Underwood Last Filed: 04/22/25 16:28> Course Course Emergency Course: patient updated on his workup and need for admission <SETH Underwood Last Filed: 04/22/25 16:28> Consultations Consultation #1: spoke with GI who will consult <Frieda Blake PA-C - Last Filed: 04/22/25 16:28> Date: 04/21/25 <JOHN Underwood Last Filed: 04/22/25 16:28> Consultation #2: spoke with hospitalist about patient and workup who accepts admission < JOHN Underwood Last Filed: 04/22/25 16:28> Date: 04/21/25 <JOHN Underwood Last Filed: 04/22/25 16:28> Vital Signs Vital signs: Vital Signs Temperature 98.2 F 04/21/25 15:41 Pulse Rate 102 H 04/21/25 15:41 Respiratory Rate 18 04/21/25 15:41 Blood Pressure 139/86 04/21/25 15:41 Pulse Oximetry 95 04/21/25 15:41 Temperature 97.7 F 04/22/25 12:00 Pulse Rate 96 04/22/25 16:00 Respiratory Rate 20 04/22/25 14:19 Blood Pressure 132/76 04/22/25 12:00 Pulse Oximetry 97 04/22/25 12:00 Oxygen Delivery Room Air 04/22/25 08:38 <JOHN Underwood Last Filed: 04/22/25 16:28> Vital Signs Temperature 98.2 F 04/21/25 15:41 Pulse Rate 102 H 04/21/25 15:41 Respiratory Rate 18 04/21/25 15:41 Blood Pressure 139/86 04/21/25 15:41 Pulse Oximetry 95 04/21/25 15:41 Temperature 97.7 F 04/22/25 12:00 Pulse Rate 96 04/22/25 16:00 Respiratory Rate 20 04/22/25 14:19 Blood Pressure 132/76 04/22/25 12:00 Pulse Oximetry 97 04/22/25 12:00 Oxygen Delivery Room Air 04/22/25 08:38 <Omid Urbano DO - Last Filed: 04/22/25 20:13> MDM - SOB/Dyspnea MDM Narrative Medical decision making narrative: Patient presents to the ER for shortness of breath. Ongoing over the last couple of days. Associated lower extremity edema. His vitals are stable. CBC showing microcytic anemia. No previous labs for comparison. He is endorsing dark stools. Hemoccult positive. EKG showing T wave inversions. Patient does not reports any chest pain. CTA chest PE with abdomen, pelvis showing bilateral pleural effusions. No PE. BNP elevated at 9180. US venous doppler without evidence of DVT. Patient given dose of Lasix IV. Will be admitted to the hospitalist for further management. GI has been consulted <Frieda Blake PA-C - Last Filed: 04/22/25 16:28> Patient presents to the ER for shortness of breath. Ongoing over the last couple of days. Associated lower extremity edema. His vitals are stable. CBC showing microcytic anemia. No previous labs for comparison. He is endorsing dark stools. Hemoccult positive. EKG showing T wave inversions. Patient does not reports any chest pain. CTA chest PE with abdomen, pelvis showing bilateral pleural effusions. No PE. BNP elevated at 9180. US venous doppler without evidence of DVT. Patient given dose of Lasix IV. Will be admitted to the hospitalist for further management. GI has been consulted This visit was performed by both a physician and an Advanced Practice Provider. I performed all aspects of the Medical Decision Making as documented. <Omid Urbano DO - Last Filed: 04/22/25 20:13> Differential Diagnosis Differential diagnosis: Likely acute exacerbation of chronic obstructive airways disease, congestive heart failure, community acquired pneumonia and pulmonary embolism < Frieda Blake PA-C - Last Filed: 04/22/25 16:28> Lab Data Attestation: I reviewed the patient's lab results. <Frieda Blake PA-C - Last Filed: 04/22/25 16:28> Result diagrams: 04/22/25 12:25 04/22/25 05:21 <Frieda Blake PA-C - Last Filed: 04/22/25 16:28> Labs: Lab Results 04/21/25 04/21/25 04/21/25 Range/Units 16:04 16:04 18:12 WBC 9.1 (4.5-10.0) K/mm3 RBC 4.03 L (4.6-6.20) M/mm3 Hgb 9.4 L (14.0-18.0) g/dL Hct 31.3 L (42.0-52.0) % MCV 77.7 L (80-100) fl MCH 23.3 L (26-34) pg MCHC 30.0 L (32-36) g/dl RDW 18.8 H (11.5-14.5) % Plt Count 363 (150-375) k/mm3 MPV 10.0 (7.4-10.4) fl Immature Gran % (Auto) 0.7 H (0-0.5) % Neut % (Auto) 66.0 (45.5-73.1) % Lymph % (Auto) 21.7 (18.3-44.2) % Woodson % (Auto) 10.7 H (2.6-8.5) % Eos % (Auto) 0.3 (0-4.4) % Baso % (Auto) 0.6 (0.2-1.2) % Lymph # (Auto) 1.97 (0.9-3.2) K/mm3 Woodson # (Auto) 1.0 H (0.1-0.6) K/mm3 Eos # (Auto) 0.0 (0-0.3) K/mm3 Baso # (Auto) 0.1 (0.0-0.1) K/mm3 Abs Immat Gran (auto) 0.06 H (0.00-0.031) K/mm3 Absolute Neuts (auto) 6.0 (1.3-6.7) K/mm3 Absolute Nucleated RBC 0.000 (0.0-0.012) K/mm3 Nucleated RBC % 0.0 (0.0-0.2) % Absolute Retic (0.02-0.10) 10^6/uL Percent Retic (0.7-4.3) % Immature Retic Fraction (3.0-15.9) % Retic Hgb Content (28.2-36.6) pg Haptoglobin PT 15.6 H (11.1-14.7) Seconds INR 1.2 APTT 33.4 (22.3-36.8) Seconds Sodium 131 L (137-145) mmol/L Potassium 3.7 (3.4-5.0) mmol/L Chloride 103 (98-107) mmol/L Carbon Dioxide 22 (22-30) mmol/L Anion Gap 6 (4-12) mmol/L BUN 21 H (9-20) mg/dL Creatinine 0.87 (0.7-1.3) mg/dL Estim Creat Clear Calc 78 ml/min Estimated GFR > 60 (59 - ) Glucose 130 H (65-110) mg/dL Calcium 7.9 L (8.4-10.2) mg/dL Iron (49-181) ug/dL TIBC (265-497) ug/dL % Saturation (20-50) % Transferrin (206-381) mg/dL Kellee Transferrin Receptr Ferritin (11.1-264) ng/mL Total Bilirubin 0.6 (0.2-1.3) mg/dL AST 53 (17-59) U/L ALT 36 (6-50) U/L Alkaline Phosphatase 119 (38-126) U/L Lactate Dehydrogenase (120-246) U/L NT-Pro-B Natriuret Pep 9180 H Cancelled (19.9-100) pg/mL Total Protein 7.1 (6.3-8.2) g/dL Albumin 3.5 (3.5-5.1) g/dL Vitamin B12 (239-931) pg/mL Folate (2.76->20) ng/mL TSH (Reflex) (0.465-4.68) uIU/mL Urine Total Protein Urine Albumin (PEP) U Uevst-2-Rndyklmp U Poqqt-1-Zeztczkk U Beta Globulin U Gamma Globulin U Random M-Vic (%) Blood Type O Positive Antibody Screen Negative RADHA, IgG Interpret RADHA, Poly Interpret RADHA, Complement Interp 04/21/25 04/21/25 04/22/25 Range/Units 19:21 19:21 00:26 WBC (4.5-10.0) K/mm3 RBC (4.6-6.20) M/mm3 Hgb 9.8 L 9.2 L (14.0-18.0) g/dL Hct 32.2 L 30.3 L (42.0-52.0) % MCV (80-100) fl MCH (26-34) pg MCHC (32-36) g/dl RDW (11.5-14.5) % Plt Count (150-375) k/mm3 MPV (7.4-10.4) fl Immature Gran % (Auto) (0-0.5) % Neut % (Auto) (45.5-73.1) % Lymph % (Auto) (18.3-44.2) % Woodson % (Auto) (2.6-8.5) % Eos % (Auto) (0-4.4) % Baso % (Auto) (0.2-1.2) % Lymph # (Auto) (0.9-3.2) K/mm3 Woodson # (Auto) (0.1-0.6) K/mm3 Eos # (Auto) (0-0.3) K/mm3 Baso # (Auto) (0.0-0.1) K/mm3 Abs Immat Gran (auto) (0.00-0.031) K/mm3 Absolute Neuts (auto) (1.3-6.7) K/mm3 Absolute Nucleated RBC (0.0-0.012) K/mm3 Nucleated RBC % (0.0-0.2) % Absolute Retic 0.12 H (0.02-0.10) 10^6/uL Percent Retic 2.96 (0.7-4.3) % Immature Retic Fraction 26.8 H (3.0-15.9) % Retic Hgb Content 22.6 L (28.2-36.6) pg Haptoglobin Pending PT (11.1-14.7) Seconds INR APTT (22.3-36.8) Seconds Sodium (137-145) mmol/L Potassium (3.4-5.0) mmol/L Chloride (98-107) mmol/L Carbon Dioxide (22-30) mmol/L Anion Gap (4-12) mmol/L BUN (9-20) mg/dL Creatinine (0.7-1.3) mg/dL Estim Creat Clear Calc ml/min Estimated GFR (59 - ) Glucose (65-110) mg/dL Calcium (8.4-10.2) mg/dL Iron 30 L (49-181) ug/dL TIBC 413 (265-497) ug/dL % Saturation 7 L (20-50) % Transferrin 301 (206-381) mg/dL Kellee Transferrin Receptr Pending Ferritin 15.60 (11.1-264) ng/mL Total Bilirubin 0.5 Cancelled (0.2-1.3) mg/dL AST (17-59) U/L ALT (6-50) U/L Alkaline Phosphatase (38-126) U/L Lactate Dehydrogenase 274 H (120-246) U/L NT-Pro-B Natriuret Pep (19.9-100) pg/mL Total Protein (6.3-8.2) g/dL Albumin (3.5-5.1) g/dL Vitamin B12 373.0 (239-931) pg/mL Folate 11.8 (2.76->20) ng/mL TSH (Reflex) 2.260 (0.465-4.68) uIU/mL Urine Total Protein Urine Albumin (PEP) U Watys-1-Iovpyxtw U Ctayj-3-Ycjmjeiu U Beta Globulin U Gamma Globulin U Random M-Vic (%) Blood Type Antibody Screen RADHA, IgG Interpret 1+ RADHA, Poly Interpret 1+ RADHA, Complement Interp Negative 04/22/25 04/22/25 04/22/25 Range/Units 05:21 11:32 12:25 WBC 9.6 (4.5-10.0) K/mm3 RBC 4.00 L (4.6-6.20) M/mm3 Hgb 9.4 L 10.3 L (14.0-18.0) g/dL Hct 31.2 L 34.4 L (42.0-52.0) % MCV 78.0 L (80-100) fl MCH 23.5 L (26-34) pg MCHC 30.1 L (32-36) g/dl RDW 18.7 H (11.5-14.5) % Plt Count 355 (150-375) k/mm3 MPV 10.3 (7.4-10.4) fl Immature Gran % (Auto) (0-0.5) % Neut % (Auto) (45.5-73.1) % Lymph % (Auto) (18.3-44.2) % Woodson % (Auto) (2.6-8.5) % Eos % (Auto) (0-4.4) % Baso % (Auto) (0.2-1.2) % Lymph # (Auto) (0.9-3.2) K/mm3 Woodson # (Auto) (0.1-0.6) K/mm3 Eos # (Auto) (0-0.3) K/mm3 Baso # (Auto) (0.0-0.1) K/mm3 Abs Immat Gran (auto) (0.00-0.031) K/mm3 Absolute Neuts (auto) (1.3-6.7) K/mm3 Absolute Nucleated RBC (0.0-0.012) K/mm3 Nucleated RBC % (0.0-0.2) % Absolute Retic (0.02-0.10) 10^6/uL Percent Retic (0.7-4.3) % Immature Retic Fraction (3.0-15.9) % Retic Hgb Content (28.2-36.6) pg Haptoglobin PT (11.1-14.7) Seconds INR APTT (22.3-36.8) Seconds Sodium 131 L (137-145) mmol/L Potassium 4.2 (3.4-5.0) mmol/L Chloride 102 (98-107) mmol/L Carbon Dioxide 25 (22-30) mmol/L Anion Gap 4 (4-12) mmol/L BUN 16 (9-20) mg/dL Creatinine 0.90 (0.7-1.3) mg/dL Estim Creat Clear Calc 75 ml/min Estimated GFR > 60 (59 - ) Glucose 98 (65-110) mg/dL Calcium 8.0 L (8.4-10.2) mg/dL Iron (49-181) ug/dL TIBC (265-497) ug/dL % Saturation (20-50) % Transferrin (206-381) mg/dL Kellee Transferrin Receptr Ferritin (11.1-264) ng/mL Total Bilirubin (0.2-1.3) mg/dL AST (17-59) U/L ALT (6-50) U/L Alkaline Phosphatase (38-126) U/L Lactate Dehydrogenase (120-246) U/L NT-Pro-B Natriuret Pep (19.9-100) pg/mL Total Protein (6.3-8.2) g/dL Albumin (3.5-5.1) g/dL Vitamin B12 (239-931) pg/mL Folate (2.76->20) ng/mL TSH (Reflex) (0.465-4.68) uIU/mL Urine Total Protein Pending Urine Albumin (PEP) Pending U Eangb-1-Rhpcqvhk Pending U Tmqzc-3-Vgtndjkk Pending U Beta Globulin Pending U Gamma Globulin Pending U Random M-Vic (%) Pending Blood Type Antibody Screen RADHA, IgG Interpret RADHA, Poly Interpret RADHA, Complement Interp <Frieda Blake PA-C - Last Filed: 04/22/25 16:28> Lab Results 04/21/25 04/21/25 04/21/25 Range/Units 16:04 16:04 18:12 WBC 9.1 (4.5-10.0) K/mm3 RBC 4.03 L (4.6-6.20) M/mm3 Hgb 9.4 L (14.0-18.0) g/dL Hct 31.3 L (42.0-52.0) % MCV 77.7 L (80-100) fl MCH 23.3 L (26-34) pg MCHC 30.0 L (32-36) g/dl RDW 18.8 H (11.5-14.5) % Plt Count 363 (150-375) k/mm3 MPV 10.0 (7.4-10.4) fl Immature Gran % (Auto) 0.7 H (0-0.5) % Neut % (Auto) 66.0 (45.5-73.1) % Lymph % (Auto) 21.7 (18.3-44.2) % Woodson % (Auto) 10.7 H (2.6-8.5) % Eos % (Auto) 0.3 (0-4.4) % Baso % (Auto) 0.6 (0.2-1.2) % Lymph # (Auto) 1.97 (0.9-3.2) K/mm3 Woodson # (Auto) 1.0 H (0.1-0.6) K/mm3 Eos # (Auto) 0.0 (0-0.3) K/mm3 Baso # (Auto) 0.1 (0.0-0.1) K/mm3 Abs Immat Gran (auto) 0.06 H (0.00-0.031) K/mm3 Absolute Neuts (auto) 6.0 (1.3-6.7) K/mm3 Absolute Nucleated RBC 0.000 (0.0-0.012) K/mm3 Nucleated RBC % 0.0 (0.0-0.2) % Absolute Retic (0.02-0.10) 10^6/uL Percent Retic (0.7-4.3) % Immature Retic Fraction (3.0-15.9) % Retic Hgb Content (28.2-36.6) pg Haptoglobin PT 15.6 H (11.1-14.7) Seconds INR 1.2 APTT 33.4 (22.3-36.8) Seconds Sodium 131 L (137-145) mmol/L Potassium 3.7 (3.4-5.0) mmol/L Chloride 103 (98-107) mmol/L Carbon Dioxide 22 (22-30) mmol/L Anion Gap 6 (4-12) mmol/L BUN 21 H (9-20) mg/dL Creatinine 0.87 (0.7-1.3) mg/dL Estim Creat Clear Calc 78 ml/min Estimated GFR > 60 (59 - ) Glucose 130 H (65-110) mg/dL Calcium 7.9 L (8.4-10.2) mg/dL Iron (49-181) ug/dL TIBC (265-497) ug/dL % Saturation (20-50) % Transferrin (206-381) mg/dL Kellee Transferrin Receptr Ferritin (11.1-264) ng/mL Total Bilirubin 0.6 (0.2-1.3) mg/dL AST 53 (17-59) U/L ALT 36 (6-50) U/L Alkaline Phosphatase 119 (38-126) U/L Lactate Dehydrogenase (120-246) U/L NT-Pro-B Natriuret Pep 9180 H Cancelled (19.9-100) pg/mL Total Protein 7.1 (6.3-8.2) g/dL Albumin 3.5 (3.5-5.1) g/dL Vitamin B12 (239-931) pg/mL Folate (2.76->20) ng/mL TSH (Reflex) (0.465-4.68) uIU/mL Urine Total Protein Urine Albumin (PEP) U Kvkuf-8-Teoyremo U Aeuoj-9-Logdrvsm U Beta Globulin U Gamma Globulin U Random M-Vic (%) Blood Type O Positive Antibody Screen Negative RADHA, IgG Interpret RADHA, Poly Interpret RADHA, Complement Interp 04/21/25 04/21/25 04/22/25 Range/Units 19:21 19:21 00:26 WBC (4.5-10.0) K/mm3 RBC (4.6-6.20) M/mm3 Hgb 9.8 L 9.2 L (14.0-18.0) g/dL Hct 32.2 L 30.3 L (42.0-52.0) % MCV (80-100) fl MCH (26-34) pg MCHC (32-36) g/dl RDW (11.5-14.5) % Plt Count (150-375) k/mm3 MPV (7.4-10.4) fl Immature Gran % (Auto) (0-0.5) % Neut % (Auto) (45.5-73.1) % Lymph % (Auto) (18.3-44.2) % Woodson % (Auto) (2.6-8.5) % Eos % (Auto) (0-4.4) % Baso % (Auto) (0.2-1.2) % Lymph # (Auto) (0.9-3.2) K/mm3 Woodson # (Auto) (0.1-0.6) K/mm3 Eos # (Auto) (0-0.3) K/mm3 Baso # (Auto) (0.0-0.1) K/mm3 Abs Immat Gran (auto) (0.00-0.031) K/mm3 Absolute Neuts (auto) (1.3-6.7) K/mm3 Absolute Nucleated RBC (0.0-0.012) K/mm3 Nucleated RBC % (0.0-0.2) % Absolute Retic 0.12 H (0.02-0.10) 10^6/uL Percent Retic 2.96 (0.7-4.3) % Immature Retic Fraction 26.8 H (3.0-15.9) % Retic Hgb Content 22.6 L (28.2-36.6) pg Haptoglobin Pending PT (11.1-14.7) Seconds INR APTT (22.3-36.8) Seconds Sodium (137-145) mmol/L Potassium (3.4-5.0) mmol/L Chloride (98-107) mmol/L Carbon Dioxide (22-30) mmol/L Anion Gap (4-12) mmol/L BUN (9-20) mg/dL Creatinine (0.7-1.3) mg/dL Estim Creat Clear Calc ml/min Estimated GFR (59 - ) Glucose (65-110) mg/dL Calcium (8.4-10.2) mg/dL Iron 30 L (49-181) ug/dL TIBC 413 (265-497) ug/dL % Saturation 7 L (20-50) % Transferrin 301 (206-381) mg/dL Kellee Transferrin Receptr Pending Ferritin 15.60 (11.1-264) ng/mL Total Bilirubin 0.5 Cancelled (0.2-1.3) mg/dL AST (17-59) U/L ALT (6-50) U/L Alkaline Phosphatase (38-126) U/L Lactate Dehydrogenase 274 H (120-246) U/L NT-Pro-B Natriuret Pep (19.9-100) pg/mL Total Protein (6.3-8.2) g/dL Albumin (3.5-5.1) g/dL Vitamin B12 373.0 (239-931) pg/mL Folate 11.8 (2.76->20) ng/mL TSH (Reflex) 2.260 (0.465-4.68) uIU/mL Urine Total Protein Urine Albumin (PEP) U Wedvr-6-Suraytxl U Jojfo-3-Qebdcvfg U Beta Globulin U Gamma Globulin U Random M-Vic (%) Blood Type Antibody Screen RADHA, IgG Interpret 1+ RADHA, Poly Interpret 1+ RADHA, Complement Interp Negative 04/22/25 04/22/25 04/22/25 Range/Units 05:21 11:32 12:25 WBC 9.6 (4.5-10.0) K/mm3 RBC 4.00 L (4.6-6.20) M/mm3 Hgb 9.4 L 10.3 L (14.0-18.0) g/dL Hct 31.2 L 34.4 L (42.0-52.0) % MCV 78.0 L (80-100) fl MCH 23.5 L (26-34) pg MCHC 30.1 L (32-36) g/dl RDW 18.7 H (11.5-14.5) % Plt Count 355 (150-375) k/mm3 MPV 10.3 (7.4-10.4) fl Immature Gran % (Auto) (0-0.5) % Neut % (Auto) (45.5-73.1) % Lymph % (Auto) (18.3-44.2) % Woodson % (Auto) (2.6-8.5) % Eos % (Auto) (0-4.4) % Baso % (Auto) (0.2-1.2) % Lymph # (Auto) (0.9-3.2) K/mm3 Woodson # (Auto) (0.1-0.6) K/mm3 Eos # (Auto) (0-0.3) K/mm3 Baso # (Auto) (0.0-0.1) K/mm3 Abs Immat Gran (auto) (0.00-0.031) K/mm3 Absolute Neuts (auto) (1.3-6.7) K/mm3 Absolute Nucleated RBC (0.0-0.012) K/mm3 Nucleated RBC % (0.0-0.2) % Absolute Retic (0.02-0.10) 10^6/uL Percent Retic (0.7-4.3) % Immature Retic Fraction (3.0-15.9) % Retic Hgb Content (28.2-36.6) pg Haptoglobin PT (11.1-14.7) Seconds INR APTT (22.3-36.8) Seconds Sodium 131 L (137-145) mmol/L Potassium 4.2 (3.4-5.0) mmol/L Chloride 102 (98-107) mmol/L Carbon Dioxide 25 (22-30) mmol/L Anion Gap 4 (4-12) mmol/L BUN 16 (9-20) mg/dL Creatinine 0.90 (0.7-1.3) mg/dL Estim Creat Clear Calc 75 ml/min Estimated GFR > 60 (59 - ) Glucose 98 (65-110) mg/dL Calcium 8.0 L (8.4-10.2) mg/dL Iron (49-181) ug/dL TIBC (265-497) ug/dL % Saturation (20-50) % Transferrin (206-381) mg/dL Kellee Transferrin Receptr Ferritin (11.1-264) ng/mL Total Bilirubin (0.2-1.3) mg/dL AST (17-59) U/L ALT (6-50) U/L Alkaline Phosphatase (38-126) U/L Lactate Dehydrogenase (120-246) U/L NT-Pro-B Natriuret Pep (19.9-100) pg/mL Total Protein (6.3-8.2) g/dL Albumin (3.5-5.1) g/dL Vitamin B12 (239-931) pg/mL Folate (2.76->20) ng/mL TSH (Reflex) (0.465-4.68) uIU/mL Urine Total Protein Pending Urine Albumin (PEP) Pending U Odcqk-0-Obdbklzx Pending U Mbrhc-0-Yfffphyj Pending U Beta Globulin Pending U Gamma Globulin Pending U Random M-Vic (%) Pending Blood Type Antibody Screen RADHA, IgG Interpret RADHA, Poly Interpret RADHA, Complement Interp <Omid Urbano, DO - Last Filed: 04/22/25 20:13> Imaging Data Radiologist's impression: ITS Impressions Chest/Abdomen/Pelvis CTA 04/21/25 17:10 IMPRESSION: There is no pulmonary embolism, aortic dissection, pericardial fluid or thoracic aneurysm. Pulmonary nodules within the upper lungs bilaterally measuring up to 21 mm. There are enlarged mediastinal lymph nodes measuring up to 1.9 cm in short axis dimension. Malignancy cannot be excluded. Follow-up PET/CT is recommended. CTA chest PE abdomen pel INDICATION:sob, le edema, prostate cancer, dark stools . COMPARISON: None. TECHNIQUE: Axial images of the abdomen and pelvis were obtained following infusion of 100 mL Isovue 370. Dose optimization technique was utilized. FINDINGS: The lung bases are clear. The liver parenchyma is unremarkable. No intrahepatic mass or ductal dilatation is evident. The gallbladder is unremarkable. The pancreas and spleen are normal in appearance. The adrenal glands are symmetric in size. The kidneys demonstrate symmetric uptake and excretion of contrast. No cystic mass is evident. There is no solid mass. There is no hydronephrosis. The bladder and rectum are normal. No free intraperitoneal fluid or air is evident. There is no significant retroperitoneal lymphadenopathy. The aorta, visceral vessels and renal arteries demonstrate normal caliber and patency. The lower thoracic and lumbar vertebrae are in normal alignment. IMPRESSION: No acute abnormality is noted in the abdomen and pelvis. All CT scans at this facility are performed using low dose modulation techniques as appropriate to perform exam including the following: automated exposure control; use of iterative reconstruction technique; adjustment of the mA and/or kV according to patient size (this includes techniques or standardized protocols for targeted exams where dose is matched to indication/reason for exam). Venous Doppler Study 04/21/25 17:33 IMPRESSION: No acute findings. <Frieda Blake PA-C - Last Filed: 04/22/25 16:28> ECG Data EKG #1: ECG completion date: 04/21/25 <Frieda Blake PA-C - Last Filed: 04/22/25 16:28> Critical Care Time Critical Care Time Critical Care Time: Yes <JOHN Underwood Last Filed: 04/22/25 16:28> Total Critical Care Time: 35 <JOHN Underwood Last Filed: 04/22/25 16:28> Discharge Plan Discharge Clinical Impression: Anemia Qualifiers: Anemia type: unspecified type Qualified Code(s): D64.9 - Anemia, unspecified CHF exacerbation Qualifiers: Heart failure type: unspecified Qualified Code(s): I50.9 - Heart failure, unspecified <Frieda Blake PA-C - Last Filed: 04/22/25 16:28> Patient Disposition: Still a Patient <Frieda Blake PA-C - Last Filed: 04/22/25 16:28> Condition: Stable <Frieda Blake PA-C - Last Filed: 04/22/25 16:28>
[2025-04-21 16:50] LABS: NT Pro B Type Natriuretic Pept 9180 pg/mL (19.9-100)
[2025-04-21] MEDS: FUROSEMIDE INJ 40 MG/4 ML VIAL IV PUSH (17:37)
[2025-04-21] MEDS: IPRATROPIUM 0.5 MG/ALBUTEROL SULFATE 2.5 MG (BASE) AMPUL.NEB 3 ML INHALATION (19:02)
--- NOTE | 2025-04-21 19:08 | P.HP_ITS ---
H&P: HPI History of Present Illness Date/Time: 04/21/25 19:08 Chief Complaint: Shortness of breath Narrative: This is a 64-year-old male patient with a history of prostate cancer awaiting treatment with oral chemotherapy. The patient came into the emergency room with with complaints of shortness of breath. This has been ongoing over the last 2 days. He also reports that he has increased swelling to the right lower extremity. The patient has no prior history of any CHF her DVTs. He also noted that his stools have been darker than normal lately. The patient reports that he drinks 4 alcoholic drinks a week. He denies any nausea or vomiting. He did not notice any blood in his stool test that they were darker. Abnormal labs his H&H is 9.8 and 32.2. We have no previous labs since 2008 for comparison. And see the is 77.7. MCH is 23.3, MCHC is 30.0, RDW is 18.8. On his chemistry his sodium slightly low at 131. BNP is 9180. Venous Doppler of bilateral lower extremities was read as no acute findings. The patient was given a dose of Lasix in the emergency room as well as a nebulizer treatment. EKG was read as sinus tachycardia with premature atrial complexes left anterior fascicular block . Right bundle branch block. Moderate T-wave abnormality. He does carry the diagnosis of coronary artery disease with a history of 2 coronary stents in the past possibly in 1999. The patient is being admitted to observation status on the date of service of 04/21/25. Review of Systems Constitutional: Constitutional: Reports as per HPI and Reports no additional constitutional complaints Eyes: Eyes: Reports as per HPI and Reports no additional eye complaints ENT: Reports no additional ear, nose, mouth, and throat complaints and Reports Normal hearing present Cardiovascular: Cardiovascular: Reports no additional cardiovascular complaints Respiratory: Respiratory: Reports as per HPI and Reports no additional respiratory complaints Gastrointestinal: Gastrointestinal: Reports as per HPI and Reports no additional gastrointestinal complaints Musculoskeletal: Musculoskeletal: Reports no additional musculoskeletal complaints Integumentary/Breasts: Skin/Breast: Reports system reviewed and no additional complaints, except as docu Neurologic: Reports no additional neurologic complaints and Reports Normal hearing present Psychiatric: Psychiatric: Reports no additional psychiatric complaints and Reports as per HPI Hematologic/Lymphatic: Hematologic/Lymphatic: Reports no additional hematologic/lymphatic complaints Allergic/Immunologic: Allergic/Immunologic: Reports no additional allergic/immunologic complaints [facility] Past Medical History Medical History (Updated 04/22/25 @ 21:34 by Anna Dumont MD) Hepatitis C Testicular cancer 2004 Prostate cancer CAD (coronary artery disease) COPD (chronic obstructive pulmonary disease) Surgical History Surgical History History of orchiectomy Hx of cholecystectomy 2009 History of coronary artery stent placement 2 stents Family History Family History Other No significant family history Social History Social History (Updated 04/21/25 @ 20:05 by Niki Benz APRN) Social History: He lives home alone and is . he has 2 sons. 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 code status : full code Smoking packs per day: 1 Smoking cigarettes per day: 20.0 Years smoked: 55 Smoking pack-years: 55.00 Tobacco type: cigarettes Alcohol intake: current Drinks per week: 4 Substance use: current Substance use type: marijuana, crack/cocaine and amphetamines Other substance usage details: few x per week Last use: 04/21/25 Lack of Transportation: YES Lack of Food: Sometimes True Current Housing: I Have Housing Concerned About Future Housing: No Difficulty Paying Gas/Electric Bills: YES Difficulty Paying for Meds: No Currently Unemployed: No Education: Grade School Difficulty w/ Childcare or Family Care: No Living arrangements: alone Spiritual care concerns: No Meds Home Medications and Allergies Home Medications ?Medication ?Instructions ?Recorded ?Confirmed ?Type [id number] 250 1 tablet PO PRN hea dache 11/05/24 04/21/25 History mg-250 mg-65 mg tablet (Excedrin Migraine) aspirin 81 mg capsule 81 mg PO DAILY #30 caps 03/11 Rx furosemide 40 mg tablet (Lasix) 40 mg PO DAILY #30 tab s 04/25/25 Rx lisinopril 5 mg tablet 5 mg PO DAILY #30 tabs 04/25 Rx metoprolol succinate 50 mg 50 mg PO DAILY #30 tabs 03/11 Rx tablet,extended release 24 hr Allergies Allergy/AdvReac Type Severity Reaction Status Date / Time No Known Allergies Allergy Mild Verified 04/21/25 22:30 Vital Signs Vital Signs - 24 hr 04/21/25 15:41 04/21/25 16:02 04/21/25 17:37 Temperature 98.2 F Pulse Rate 102 H 101 H Respiratory Rate 18 19 Blood Pressure 139/86 124/98 H Pulse Oximetry 95 98 96 Oxygen Delivery Room Air 04/21/25 18:43 04/21/25 18:57 Temperature Pulse Rate 103 H 105 H Respiratory Rate 20 22 H Blood Pressure 138/98 H 133/88 Pulse Oximetry 93 93 Oxygen Delivery Exam Const: General: cooperative, healthy appearing, comfortable, no acute distress, well developed, awake, Physically active, average body habitus and well nourished Nutritional Appearance: average body habitus and well nourished Orientation/consciousness: oriented to person, oriented to place, oriented to time and patient oriented x3 Limitations: no limitations HENMT: Head: normal to inspection, No palpable skull fracture present and normocephalic Eyes: General: appearance normal, both eyes and all related structures Alignment and Position: alignment normal Periorbital: periorbital findings normal Eyelids: eyelids normal Conjunctivae: conjunctivae normal Sclera: sclerae normal Cornea: corneas normal Pupils: Equal, round and reactive pupils present and Pupil accommodation reflex normal EOM: EOMs intact bilaterally Neck: Neck: normal visual inspection, full ROM and no lymphadenopathy Chest: Chest palpation & inspection: normal inspection of the chest Resp: Effort & Inspection: normal respiratory effort Auscultation: clear to auscultation bilaterally Cardio: Palpation: normal PMI Rate: regular rate Rhythm: regular rhythm Heart sounds: S1 normal heart sound present and S2 normal heart sound present Peripheral pulses: Peripheral pulses 2+ throughout GI: Inspection: normal to inspection Percussion: Yes normal to percussion Auscultation: normal bowel sounds Rectal Exam: deferred : General: Yes no CVA tenderness Skin: General skin exam: normal color Lesions: no lesions Rashes: no rashes Trauma: no lacerations or abrasions Wounds: no wounds Hair: normal Nails: normal Neuro: General: oriented to person, oriented to place, oriented to time and patient oriented x3 Cranial nerves: Yes Equal, round and reactive pupils present and Yes Normal hearing present Cognition (Neuro): normal cognition Speech: normal speech Gait exam (Neuro): Normal gait present Motor exam (neuro): 5/5 motor strength present throughout Sensory Exam: normal sensation Extrem: General: normal to inspection Right upper extremity: normal to inspection and shoulder/upper arm Left upper extremity: normal to inspection and shoulder/upper arm Right lower extremity: normal to inspection Left lower extremity: normal to inspection Psych: Appearance: grossly normal Mental Status: mental status grossly normal Speech and movement: Normal speech and movement present Affect: normal affect Attitude: cooperative Thought process: Normal thought process present Thought content: Yes Normal thought content present Insight: Good insight present (Psych) Judgement: Good judgement present (Psych) H&P: Results Labs Labs: Short CBC 04/21/25 Range/Units 16:04 WBC 9.1 (4.5-10.0) K/mm3 Hgb 9.4 L (14.0-18.0) g/dL Hct 31.3 L (42.0-52.0) % Plt Count 363 (150-375) k/mm3 BMP 04/21/25 16:04 Sodium 131 L Potassium 3.7 Chloride 103 Carbon Dioxide 22 BUN 21 H Creatinine 0.87 Glucose 130 H Calcium 7.9 L Liver Function 04/21/25 Range/Units 16:04 Total Bilirubin 0.6 (0.2-1.3) mg/dL AST 53 (17-59) U/L ALT 36 (6-50) U/L Alkaline Phosphatase 119 (38-126) U/L Albumin 3.5 (3.5-5.1) g/dL ECG Interpretation: Test Date: 2025-04-21 16:03:17 Measurements Intervals [place] Rate: 102 P: 0 HI: 0 QRS: -31 QRSD: 130 T: 95 QT: 366 QTc: 478 Interpretive Statements SINUS TACHYCARDIA WITH PREMATURE ATRIAL COMPLEXES LEFT ANTERIOR FASCICULAR BLOCK RIGHT BUNDLE BRANCH BLOCK [120+ ms QRS DURATION, UPRIGHT V1, 40+ ms S IN I/aVL/V4/V5/V6] MODERATE T-WAVE ABNORMALITY, CONSIDER ANTERIOR AND LATERAL ISCHEMIA [-0.1+ mV T-WAVE IN I/aVL/V5/V6] ABNORMAL ECG No previous ECG available for comparison Imaging CT scan - abdomen: Radiologist's impression: Impressions Chest/Abdomen/Pelvis CTA 04/21/25 17:10 IMPRESSION: There is no pulmonary embolism, aortic dissection, pericardial fluid or thoracic aneurysm. Pulmonary nodules within the upper lungs bilaterally measuring up to 21 mm. There are enlarged mediastinal lymph nodes measuring up to 1.9 cm in short axis dimension. Malignancy cannot be excluded. Follow-up PET/CT is recommended. CTA chest PE abdomen pel INDICATION:sob, le edema, prostate cancer, dark stools . COMPARISON: None. TECHNIQUE: Axial images of the abdomen and pelvis were obtained following infusion of 100 mL Isovue 370. Dose optimization technique was utilized. FINDINGS: The lung bases are clear. The liver parenchyma is unremarkable. No intrahepatic mass or ductal dilatation is evident. The gallbladder is unremarkable. The pancreas and spleen are normal in appearance. The adrenal glands are symmetric in size. The kidneys demonstrate symmetric uptake and excretion of contrast. No cystic mass is evident. There is no solid mass. There is no hydronephrosis. The bladder and rectum are normal. No free intraperitoneal fluid or air is evident. There is no significant retroperitoneal lymphadenopathy. The aorta, visceral vessels and renal arteries demonstrate normal caliber and patency. The lower thoracic and lumbar vertebrae are in normal alignment. IMPRESSION: No acute abnormality is noted in the abdomen and pelvis. All CT scans at this facility are performed using low dose modulation techniques as appropriate to perform exam including the following: automated exposure control; use of iterative reconstruction technique; adjustment of the mA and/or kV according to patient size (this includes techniques or standardized protocols for targeted exams where dose is matched to indication/reason for exam). Venous Doppler Study 04/21/25 17:33 IMPRESSION: No acute findings. Assessment and Plan Assessment and plan (1) Anemia: Qualifiers: Anemia type: unspecified type Qualified Code(s): D64.9 - Anemia, unspecified Code(s): D64.9 - Anemia, unspecified Status: Acute Assessment and Plan: -the patient stated that he had dark stools and that his primary care doctor kait haynes was found to be positive. The patient has no obvious blood in his stool. -his H&H is currently 9.8 in 32.9. We have no recent labs for comparison. Last labs here were in 2008 which were normal. -Hematology-Oncology have been consulted and their evaluation greatly be appreciated. -anemia panel has been initiated. -check stool for occult blood. -IV Protonix have been initiated. -type and crossmatch and infuse if symptomatic or any obvious bleeding noted or his hemoglobin is less than 6. (2) GI bleed: Code(s): K92.2 - Gastrointestinal hemorrhage, unspecified Status: Acute Assessment and Plan: -GI has been consulted. -Protonix IV has been initiated. -check stool for occult blood. -the patient reported dark stools and stated his primary care doctor told him that he was positive for occult blood. (3) Prostate cancer: Code(s): C61 - Malignant neoplasm of prostate Status: Acute Assessment and Plan: -the patient has an oncologist and stated that he has not started treatment yet. He did have a PET scan back in December of this year. . Large region of marked increased asymmetric activity at the left side of the prostate consistent with primary prostate cancer. 2. Single mildly suspicious focus of increased uptake in the left obturator region most likely related to urine activity in the left ureter but could not exclude an early metastatic lymph node. No other lesions suspicious for metastatic disease. -the patient had a previous history of testicular cancer and had an orchiectomy. -oncology hematology has been consulted. -according to his CT scan is a 21 mm pulmonary nodule and pulmonary has been consulted for further recommendation. He has a long history of tobacco abuse as well. (4) CHF exacerbation: Qualifiers: Heart failure type: unspecified Qualified Code(s): I50.9 - Heart failure, unspecified Code(s): I50.9 - Heart failure, unspecified Status: Acute Assessment and Plan: -the patient has a previous history of coronary artery disease with 2 stents. He believes the 2 stents were placed in 1999. -echo has been ordered. -he has 4+ pitting edema to the right lower extremity and was given Lasix. Venous Dopplers were noted to be negative. However he does have a weak pedal pulse to the right was likely due to the edema. However for thoroughness a are tear Doppler has been ordered. -patient has no other signs and symptoms of fluid overload.. -no prior history of any congestive heart failure. (5) Tobacco abuse: Code(s): Z72.0 - Tobacco use Status: Acute Assessment and Plan: -smoking cessation has been initiated. A nicotine patch was offered and he has decline. 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 Unclear if he has received treatment or not. Also please note on his CT read the gallbladder was noted to be unremarkable. However after reviewing his medical records from 2008 he has had a cholecystectomy. Quality VTE Prophylaxis VTE prophylaxis: mechanical ordered
[2025-04-21 19:29] LABS: Hematocrit 32.2 % (42.0-52.0); Hemoglobin 9.8 g/dL (14.0-18.0)
[2025-04-21 19:37] LABS: Iron 30 ug/dL (49-181)
[2025-04-21 19:47] LABS: Percent Iron Saturation 7 % (20-50)
[2025-04-21 19:55] LABS: Immature Reticulocyte Fraction 26.8 % (3.0-15.9); Reticulocyte Hemoglobin Conten 22.6 pg (28.2-36.6); Reticulocytes Absolute 0.12 10^6/uL (0.02-0.10)
[2025-04-21 20:07] LABS: Bilirubin,Total 0.5 mg/dL (0.2-1.3)
[2025-04-21 20:15] LABS: Transferrin 301 mg/dL (206-381)
[2025-04-21 20:40] LABS: Thyroid Stimulating Hormone Reflex 2.260 uIU/mL (0.465-4.68)
[2025-04-21 20:44] LABS: Ferritin 15.60 ng/mL (11.1-264)
[2025-04-21] MEDS: PANTOPRAZOLE SODIUM IV 40 MG VIAL IV PUSH (21:12)
[2025-04-21 21:15] LABS: Vitamin B12 373.0 pg/mL (239-931)
--- NOTE | 2025-04-21 22:20 | ADMGEN ---
This patient, Yosi Nelson, was admitted to 2 Medical Room 242-01. Patient/family oriented to hospital policies and general routines including ID bracelet, bed and alarms, visiting hours, pain management, procedures, bathroom and other care routines, personal items, smoking policy, room service/diet, and visiting hours. Information on how to activate the Rapid Response Team has been discussed. Patient/Family are encouraged to report perceived risks to care and to ask questions if they do not understand what they are told or what they should do.
[2025-04-22] VITALS (16 sets, daily range): BP systolic 125–135; BP diastolic 76–83; PULSE 67–110; RESP 16–24; TEMP 36.5–36.7; O2SAT 93–97
--- NOTE | 2025-04-22 | ECHO_ITS ---
Patient Info Name: Yosi Nelson Age: 64 years : 1960 Gender: Male Ht: 70 in Wt: 171 lbs BSA: 1.96 m2 HR: 97 bpm BP: 135 / 83 mmHg Technical Quality: Good Exam Date: 04/22/2025 11:05 AM Patient Status: I Admit Date: 04/21/2025 Exam Type: CA echo doppler color flow Complete two-dimensional, color flow and Doppler transthoracic echocardiogram is performed. Strain analysis performed. Staff Referring Physician: Niki Benz NP Allergist/Immunologist Physician: Berry Espinoza III Attending Provider: Juantia Hancock Summary 1. Complete two-dimensional, color flow and Doppler transthoracic echocardiogram is performed. 2. The left ventricle is mildly dilated with severely reduced systolic function. There is severe eccentric left ventricular hypertrophy. The left ventricular ejection fraction is visually estimated to be 10-20%. There is global hypokinesis. 3. The right ventricle is normal in size and systolic function. 4. There are no significant valvular abnormalities. 5. There is biatrial enlargement. 6. There is trace pericardial effusion. Left Ventricle The left ventricle is mildly dilated with severely reduced systolic function. There is severe eccentric left ventricular hypertrophy. The left ventricular ejection fraction is visually estimated to be 10-20%. There is global hypokinesis. Right Ventricle The right ventricle is normal in size and systolic function. Left Atria The left atrium is severely dilated. Right Atria The right atrium is dilated. Atrial Septum The atrial septum is visually intact. Aortic Valve The aortic valve is not well visualized. There is no aortic stenosis. There is no aortic regurgitation. Pulmonic Valve The pulmonic valve is not well visualized. Mitral Valve The mitral valve is normal. There is mild mitral regurgitation. Tricuspid Valve The tricuspid valve is normal. There is mild tricuspid regurgitation. Pericardium/Pleural There is trace pericardial effusion. Inferior Vena Cava Normal inferior vena cava with <50% collapse upon inspiration consistent with elevated right atrial pressure, 8 mmHg. Aorta The aortic root at the level of the sinus of Valsalva measures 3.1 cm in diameter. Left Ventricular Outflow Tract Name Value Normal LVOT 2D LVOT Diameter 2.3 cm LVOT Doppler LVOT Peak Velocity 81 cm/s LVOT Peak Gradient 3 mmHg LVOT Mean Gradient 2 mmHg LVOT VTI 12 cm LVOT VTI/AV VTI Ratio 0.7 LVOT Stroke Volume 49 ml LVOT CO 4.0 l/min LVOT CI 2.1 l/min/m2 Pulmonic Valve Name Value Normal PV Doppler PV Peak Velocity 71 cm/s PV Peak Gradient 2 mmHg PV Mean Gradient 1 mmHg Mitral Valve Name Value Normal MV Doppler MV Peak Gradient 4 mmHg MV Mean Gradient 2 mmHg MV Area (Cont Eq VTI) 2.7 cm2 MV Regurgitation Doppler MR Peak Gradient 62 mmHg MV Diastolic Function MV E Peak Velocity 88 cm/s MV A Peak Velocity 86 cm/s MV E/A 1.0 MV Decel Time (PW) 114 ms MV Annular TDI MV E/e' (Septal) 31.2 MV E/e' (Lateral) 18.6 MV E/e' (Average) 24.9 Tricuspid Valve Name Value Normal TV Regurgitation Doppler TR Peak Velocity 274 cm/s TR Peak Gradient 30 mmHg Estimated PAP/RSVP RA Pressure 8 mmHg <=5 PA Systolic Pressure 38 mmHg <36 RV Systolic Pressure 38 mmHg <36 TV Annular TDI TV Lateral Jadyn s' Velocity 14.5 cm/s >=9.5 Aortic Valve Name Value Normal AV Doppler AV Peak Velocity 109 cm/s AV Peak Gradient 5 mmHg AV Mean Gradient 3 mmHg AV VTI 16 cm AV Area (Cont Eq VTI) 3.1 cm2 >=3.0 AV Area (Cont Eq Terrell) 3.1 cm2 AV DI (Terrell) 0.75 AV Regurgitation 2D LVOT Area 4.2 cm2 Ventricles Name Value Normal LV Dimensions 2D/MM IVS Diastolic Thickness (2D) 1.3 cm 0.6-1.0 LVID Diastole (2D) 6.1 cm 4.2-5.8 LVIW Diastolic Thickness (2D) 1.1 cm 0.6-1.0 LVID Systole (2D) 5.6 cm 2.5-4.0 LVOT Diameter 2.3 cm LV Mass (2D Cubed) 324.04 g 88.00-224.00 LV Mass Index (2D Cubed) 165 g/m2 49-115 Relative Wall Thickness (2D) 0.36 <=0.42 LV Fractional Shortening/Ejection Fraction 2D/MM LV Fractional Shortening (2D) 7 % 25-43 LV EF (2D Teichholz) 15 % LV Diastolic Volume (4C MOD) 285 ml LV EF (4C MOD) 23 % LV Diastolic Volume (2C MOD) 270 ml LV EF (2C MOD) 16 % LV Diastolic Volume (BP MOD) 279 ml 62-150 LV Diastolic Volume Index (BP MOD) 142 ml/m2 34-74 LV Systolic Volume (BP MOD) 232 ml 21-61 LV Systolic Volume Index (BP MOD) 118 ml/m2 11-31 LV EF (BP MOD) 17 % 52-72 LV Diastolic Length (4C) 10.5 cm LV Systolic Length (4C) 9.5 cm LV Stroke Volume (4C MOD) 64 ml Atria Name Value Normal LA Dimensions LA Volume (4C A-L) 155 ml LA Volume (BP A-L) 150 ml RA Dimensions RA Systolic Major [place] Length (4C) 5.5 cm 2.1-2.7 RA Area (4C) 22.8 cm2 <=18.0 EchoPAC Name Value Normal EDWIN LV Apical Anterior Longitudinal Strain (EDWIN) -3.7 % LV Apical Anteroseptal Longitudinal Strain (EDWIN) -5.0 % LV Apical Inferior Longitudinal Strain (EDWIN) -13.8 % LV Apical Lateral Longitudinal Strain (EDWIN) -8.9 % LV Apical Posterior Longitudinal Strain (EDWIN) 3.3 % LV Apical Septal Longitudinal Strain (EDWIN) -5.1 % AV Closure (EDWIN) 393 ms LV Basal Anterior Longitudinal Strain (EDWIN) -5.6 % LV Basal Anteroseptal Longitudinal Strain (EDWIN) 3.7 % LV Basal Inferior Longitudinal Strain (EDWIN) -5.4 % LV Basal Anterolateral Longitudinal Strain (EDWIN) -6.2 % LV Basal Inferolateral Longitudinal Strain (EDWIN) -5.1 % LV Basal Inferoseptal Longitudinal Strain (EDWIN) -9.2 % LV Global Longitudinal Strain (2C EDWIN) -6.4 % LV Global Longitudinal Strain (4C EDWIN) -7.1 % LV Global Longitudinal Strain (APLAX EDWIN) -4.3 % LV Global Longitudinal Strain (EDWIN) -5.9 % LV Mid Anterior Longitudinal Strain (EDWIN) -3.7 % LV Mid Anteroseptal Longitudinal Strain (EDWIN) -8.5 % LV Mid Inferior Longitudinal Strain (EDWIN) -4.7 % LV Mid Anterolateral Longitudinal Strain (EDWIN) -7.5 % LV Mid Inferolateral Longitudinal Strain (EDWIN) -6.6 % LV Mid Inferoseptal Longitudinal Strain (EDWIN) -10.8 % Report Signatures
[2025-04-22 00:32] LABS: Hematocrit 30.3 % (42.0-52.0); Hemoglobin 9.2 g/dL (14.0-18.0)
[2025-04-22] MEDS: IPRATROPIUM 0.5 MG/ALBUTEROL SULFATE 2.5 MG (BASE) AMPUL.NEB 3 ML INHALATION ×3 (02:18→14:06)
[2025-04-22 05:29] LABS: Hematocrit 31.2 % (42.0-52.0); Hemoglobin 9.4 g/dL (14.0-18.0); Mean Corpuscular HGB Conc 30.1 g/dl (32-36); Mean Corpuscular Hemoglobin 23.5 pg (26-34); Mean Corpuscular Volume 78.0 fl (80-100); Platelet Count Result 355 k/mm3 (150-375); Red Blood Count 4.00 M/mm3 (4.6-6.20); White Blood Count 9.6 K/mm3 (4.5-10.0)
[2025-04-22 05:51] LABS: Anion Gap 4 mmol/L (4-12); Blood Urea Nitrogen 16 mg/dL (9-20); Calcium 8.0 mg/dL (8.4-10.2); Carbon Dioxide 25 mmol/L (22-30); Chloride 102 mmol/L (98-107); Estimated CRCL calculation 75 ml/min; Estimated Glomerular Filt Rate > 60; Glucose 98 mg/dL (65-110); Potassium 4.2 mmol/L (3.4-5.0); Sodium 131 mmol/L (137-145)
[2025-04-22] MEDS: PANTOPRAZOLE SODIUM IV 40 MG VIAL IV PUSH ×2 (08:37→20:26)
[2025-04-22] MEDS: FUROSEMIDE INJ 40 MG/4 ML VIAL IV PUSH (08:38)
--- NOTE | 2025-04-22 08:40 | P.CONGI_ITS ---
Assessment and Plan Assessment and plan (1) NAE (iron deficiency anemia): Qualifiers: Iron deficiency anemia type: other iron deficiency Qualified Code(s): D 50.8 - Other iron deficiency anemias Code(s): D50.9 - Iron deficiency anemia, unspecified Status: Acute (2) Melena: Code(s): K92.1 - Melena Status: Acute (3) Heme positive stool: Code(s): R19.5 - Other fecal abnormalities Status: Acute (4) Personal history of colonic polyps: Code(s): Z86.0100 - Personal history of colon polyps, unspecified Status: Acute (5) Prostate cancer: Code(s): C61 - Malignant neoplasm of prostate Status: Acute (6) CHF exacerbation: Qualifiers: Heart failure type: unspecified Qualified Code(s): I50.9 - Heart failure, unspecified Code(s): I50.9 - Heart failure, unspecified Status: Acute Plan 1. NAE/melena/heme positive stools: Patient stated that he was recently having dark colored stools and was noted to have a heme positive stool at his PCP's. P atient noted to have NAE this admission, labs today showing Hgb 9, Hct31, MCV78, platelets 355, INR 1.2. B12 and folate normal. Iron 30, TIBC 413, iron sat 7% and ferritin 15.60. Unclear if anemia is acute of chronic in nature as there are no other labs available for comparison. Recent colonoscopy done 11/13/[address] Barnes and 2 polyps were removed (TA and hyperplastic). Patient admits to taking high dose Excedrin a few times daily for many years, which may be a contributing factor. * etiology likely multifactorial including poor nutrition, cancer, COPD and upper GI source of bleeding? * Care with NSAID's, aspirin and anticoags * patient will need a repeat colonoscopy October 2025 (1 year repeat) with a 2 day prep * will arrange for outpatient EGD if H/H remains stable and there are no signs of active GI bleeding 2. CHF: Patient with no prior Hx of CHF. BNP on admission 9180. * being managed by primary care team 3. Prostate cancer: Patient with Hx of testicular cancer s/p orchiectomy and recent prostate cancer diagnosis pending initiation of oral chemotherapy. * being followed outpatient Thank you very much for allowing me to share in the care of this very nice patient. This report may have been done utilizing a voice recognition system. Attempts have been made to correct errors. However, there may be uncorrected grammatical, spelling, and recognition errors present. GI Consult Note Consult date/time: 04/22/25 08:40 Reason for consult: Anemia HPI: Yosi Nelson is a 64 year old male with PMSH of Hep C, testicular cancer, prostate cancer, CAD, CCX, orchiectomy, cardiac stents x2 and COPD. He presented to the ER with complaints of SOB and leg swelling and was admitted for anemia and CHF. GI has been consulted for anemia. Patient states that for the past few days he has been having dark stools and reflux. He has not taken any OTC antacids for his reflux. Admits to umbilical abdominal pain that is intermittent. Denies nausea, vomiting, bloating, odynophagia, dysphagia, regurgitation, early satiety, unexplained weight loss, appetite loss, diarrhea or hematochezia. Patient states that he takes high dose Excedrin multiple times daily for many years. Denies aspirin or anticoagulant use. He drinks around 4 times a week smokes 1 pack per day and also uses methamphetamines and marijuana. ENDOSCOPY HISTORY: EGD: Patient has never had an EGD COLONOSCOPY: 11/13/[address] Barnes for CRC screening Findings: Is a single 3 mm polyp observed in the sigmoid colon the appearance seemed adenomatous in nature. Hot snare polypectomy was performed and the polyp was completely ablated and retrieved There was a single 12 mm pedunculated polyp observed in the rectum. The appearance seemed adenomatous in nature. Hot snare polypectomy was performed and polyp was completely ablated and retrieved Repeat colonoscopy in 1 year with 2 day prep Bx results: A. Sigmoid colon polyp, polypectomy: - Tubular adenoma B. Rectal polyp, polypectomy: - Hyperplastic polyp LABS AND STOOL STUDIES: Labs 04/22/2025: Sodium 131, potassium 4.2, BUN 16, creatinine 0.90, GFR >60, calcium 8.0 WBC 10, Hgb 9, Hct 31, MCV 78, platelets 355, INR 1.2 Total bilirubin 0.5, AST 53, ALT 36, Alkaline Phos 119, albumin 3.5 Total iron 30, TIBC 413, iron sat 7%, ferritin 15.60 Potassium 3.4, 8, TSH 2.260 and BNP 9180 IMAGING: CTA chest/abd/pelvis w/contrast 04/21/2025: IMPRESSION: There is no pulmonary embolism, aortic dissection, pericardial fluid or thoracic aneurysm. Pulmonary nodules within the upper lungs bilaterally measuring up to 21 mm. There are enlarged mediastinal lymph nodes measuring up to 1.9 cm in short axis dimension. Malignancy cannot be excluded. Follow-up PET/CT is recommended. PET scan 01/07/2025: IMPRESSION: 1. Large region of marked increased asymmetric activity at the left side of the prostate consistent with primary prostate cancer. 2. Single mildly suspicious focus of increased uptake in the left obturator region most likely related to urine activity in the left ureter but could not exclude an early metastatic lymph node. No other lesions suspicious for metastatic disease. Review of Systems 2 Constitutional: Constitutional: Reports as per HPI ENT: Reports as per HPI Cardiovascular: Cardiovascular: Reports as per HPI, Denies chest pain and Reports dyspnea Respiratory: Respiratory: Reports cough, Denies hemoptysis and Reports dyspnea Gastrointestinal: Gastrointestinal: Reports as per HPI Musculoskeletal: Musculoskeletal: Reports as per HPI Integumentary/Breasts: Skin/Breast: Reports as per HPI Psychiatric: Psychiatric: Reports as per HPI Endocrine: Endocrine: Reports no additional endocrine complaints Hematologic/Lymphatic: Hematologic/Lymphatic: Reports no additional hematologic/lymphatic complaints [facility] Past Medical History Medical History (Updated 04/22/25 @ 13:28 by Bernadine Reyes APRN) Hepatitis C Testicular cancer Prostate cancer CAD (coronary artery disease) COPD (chronic obstructive pulmonary disease) Surgical History Surgical History History of orchiectomy Hx of cholecystectomy 2009 History of coronary artery stent placement 2 stents Family History Family History Other No significant family history Social History Social History (Updated 04/21/25 @ 20:05 by Niki Benz APRN) Social History: He lives home alone and is . he has 2 sons. 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 code status : full code Smoking packs per day: 1 Smoking cigarettes per day: 20.0 Years smoked: 55 Smoking pack-years: 55.00 Smoking status: Current every day smoker Tobacco type: cigarettes Alcohol intake: current Drinks per week: 4 Substance use: current Substance use type: marijuana, crack/cocaine and amphetamines Other substance usage details: few x per week Last use: 04/21/25 Lack of Transportation: YES Lack of Food: Sometimes True Current Housing: I Have Housing Concerned About Future Housing: No Difficulty Paying Gas/Electric Bills: YES Difficulty Paying for Meds: No Currently Unemployed: No Education: Grade School Difficulty w/ Childcare or Family Care: No Living arrangements: alone Spiritual care concerns: No Meds Home Medications and Allergies Home Medications ?Medication ?Instructions ?Recorded ?Confirmed ?Type [id number] 250 1 tablet PO PRN hea dache 11/05/24 04/21/25 History mg-250 mg-65 mg tablet (Excedrin Migraine) Allergies Allergy/AdvReac Type Severity Reaction Status Date / Time No Known Allergies Allergy Mild Verified 04/21/25 22:30 Vital Signs Vital Signs - 24 hr 04/21/25 15:41 04/21/25 16:02 04/21/25 17:37 Temperature 98.2 F Pulse Rate 102 H 101 H Respiratory Rate 18 19 Blood Pressure 139/86 124/98 H Pulse Oximetry 95 98 96 Oxygen Delivery Room Air 04/21/25 18:43 04/21/25 18:57 04/21/25 19:03 Temperature Pulse Rate 103 H 105 H 96 Respiratory Rate 20 22 H 25 H Blood Pressure 138/98 H 133/88 Pulse Oximetry 93 93 Oxygen Delivery 04/21/25 19:12 04/21/25 22:19 04/21/25 22:20 Temperature 97.6 F Pulse Rate 99 100 Respiratory Rate 22 H 16 Blood Pressure 118/82 Pulse Oximetry 95 Oxygen Delivery Room Air 04/21/25 23:27 04/22/25 00:00 04/22/25 02:20 Temperature 98.0 F Pulse Rate 90 105 H 94 Respiratory Rate 16 22 H Blood Pressure 121/79 Pulse Oximetry 96 Oxygen Delivery 04/22/25 02:24 04/22/25 04:00 04/22/25 04:59 Temperature 97.7 F Pulse Rate 84 88 97 Respiratory Rate 22 H 16 Blood Pressure 135/83 Pulse Oximetry 97 Oxygen Delivery 04/22/25 08:00 04/22/25 08:20 04/22/25 08:22 Temperature 97.7 F Pulse Rate 96 86 Respiratory Rate 16 24 H Blood Pressure 132/80 Pulse Oximetry 96 96 Oxygen Delivery Room Air 04/22/25 08:30 Temperature Pulse Rate 90 Respiratory Rate 24 H Blood Pressure Pulse Oximetry Oxygen Delivery Exam 2 Const: General: cooperative, comfortable, no acute distress and well developed Orientation/consciousness: oriented to person, oriented to place, oriented to time and patient oriented x3 HENMT: Head: normal to inspection, normocephalic and atraumatic Mouth: Yes Normal oral and palatal mucosa present and Yes moist mucous membranes Eyes: General: appearance normal, both eyes and all related structures C onjunctivae: conjunctivae normal Sclera: sclerae normal Pupils: Equal, round and reactive pupils present Neck: Neck: normal visual inspection Chest: Chest palpation & inspection: normal inspection of the chest Resp: Effort & Inspection: normal respiratory effort and able to speak in complete sentences Auscultation: clear to auscultation bilaterally Cardio: Jugular venous distension: no JVD Rate: regular rate Rhythm: r egular rhythm Heart sounds: S1 normal heart sound present and S2 normal heart sound present GI: Inspection: normal to inspection GI Palp: Yes Soft to palpation and Yes No hepatosplenomegaly present Auscultation: normal bowel sounds Rectal Exam: deferred Skin: General skin exam: normal color and no rashes or lesions noted Neuro: General: oriented to person, oriented to place, oriented to time and patient oriented x3 Cranial nerves: Yes Equal, round and reactive pupils present Speech: normal speech Extrem: General: normal to inspection and no clubbing, cyanosis or edema Psych: Appearance: grossly normal and well kempt Affect: normal affect Results Labs 04/22/25 12:25 04/22/25 05:21 Labs: Short CBC 04/21/25 04/21/25 04/22/25 Range/Units 16:04 19:21 00:26 WBC 9.1 (4.5-10.0) K/mm3 Hgb 9.4 L 9.8 L 9.2 L (14.0-18.0) g/dL Hct 31.3 L 32.2 L 30.3 L (42.0-52.0) % Plt Count 363 (150-375) k/mm3 04/22/25 Range/Units 05:21 WBC 9.6 (4.5-10.0) K/mm3 Hgb 9.4 L (14.0-18.0) g/dL Hct 31.2 L (42.0-52.0) % Plt Count 355 (150-375) k/mm3 BMP 04/21/25 04/22/25 16:04 05:21 Sodium 131 L 131 L Potassium 3.7 4.2 Chloride 103 102 Carbon Dioxide 22 25 BUN 21 H 16 Creatinine 0.87 0.90 Glucose 130 H 98 Calcium 7.9 L 8.0 L Liver Function 04/21/25 04/21/25 04/21/25 Range/Units 16:04 19:21 19:21 Total Bilirubin 0.6 0.5 Cancelled (0.2-1.3) mg/dL AST 53 (17-59) U/L ALT 36 (6-50) U/L Alkaline Phosphatase 119 (38-126) U/L Albumin 3.5 (3.5-5.1) g/dL
--- NOTE | 2025-04-22 11:53 | P.PNIM_ITS ---
Progress Note: A&P Assessment and Plan (1) Anemia: Qualifiers: Anemia type: unspecified type Qualified Code(s): D64.9 - Anemia, unspecified Code(s): D64.9 - Anemia, unspecified Status: Acute Assessment and Plan: The patient stated that he had dark stools and that his primary care doctor kait haynes was found to be positive. The patient has no over GIB likely secondary to metastatic cancer and poor appetite. his H&H is currently 9.8 in 32.9. We have no recent labs for comparison. * Hematology-Oncology have been consulted and their evaluation greatly be appreciated. * anemia panel has been initiated. * check stool for occult blood. * IV Protonix have been initiated. * trend H&H transfuse if Hgb <7.0 (2) GI bleed: Code(s): K92.2 - Gastrointestinal hemorrhage, unspecified Status: Acute Assessment and Plan: See Above * GI was consulted and recommended outpatient colonoscopy (3) Prostate cancer: Code(s): C61 - Malignant neoplasm of prostate Status: Acute Assessment and Plan: The patient has an oncologist and stated that he has not started treatment yet. He did have a PET scan back in December of this year. . Large region of marked increased asymmetric activity at the left side of the prostate consistent with primary prostate cancer. CT imaging showing single mildly suspicious focus of increased uptake in the left obturator region most likely related to urine activity in the left ureter but could not exclude an early metastatic lymph node. No other lesions suspicious for metastatic disease. The patient had a previous history of testicular cancer and had an orchiectomy. * oncology hematology has been consulted. * according to his CT scan is a 21 mm pulmonary nodule and pulmonary has been consulted for further recommendation. * Small bilateral pleural effusion or could be causing shortness of breath improve with lasix (4) CHF exacerbation: Qualifiers: Heart failure type: unspecified Qualified Code(s): I50.9 - Heart failure, unspecified Code(s): I50.9 - Heart failure, unspecified Status: Acute Assessment and Plan: The patient has a previous history of coronary artery disease with 2 stents. He believes the 2 stents were placed in 1999. CT chest showing cardiomegaly and 2+ 3+ pitting edema BLE * Echocardiogram pending * IV p.o. Lasix daily * No previous history of heart failure pending echocardiogram may consult Cardiology for new onset CHF * Daily weights * Strict I&Os (5) Bilateral pleural effusion: Code(s): J90 - Pleural effusion, not elsewhere classified Status: Acute Assessment and Plan: CT showing bilateral small pleural effusions, CHF vs metastatic cancer for likely cause * BP 40 mg Lasix daily * Incentive spirometer * Pulmonary was consulted for further evaluation upper lobe nodules (6) Tobacco abuse: Code(s): Z72.0 - Tobacco use Status: Acute Assessment and Plan: * Smoking cessation provided * Declined nicotine patch Plan Code status: Full code per patient DVT prophylaxis: SCDs Stress ulcer prophylaxis: Protonix 40 b.i.d. PT/OT notes: Ambulatory Disposition: Patient continues admission to the medical unit for further evaluation and treatment of possible new onset CHF and new metastatic cancer with bilateral pleural effusions possible GI bleed. Patient evaluation GI, pulmonary Hematology may be to consult Cardiology if new onset CHF. Time Spent With Patient Time with patient: 25 - 35 minutes Subjective Date/time seen: 04/22/25 11:53 Interval history: Patient is a 64-year-old male admitted for further evaluation anemia shortness of breath, bilateral pleural effusions, and possible new onset heart failure. 04/22/2025: Patient with no new complaints did report still mild shortness of breath but improved since admission. BLE still 2+ to 3+ edema. Patient denied any chest, nausea, vomiting fever or chills. Patient did GI, Hematology, Pulmonary consultation today. CTA showing multiple upper lobe nodules concerning for metastatic cancer. Review of Systems Review of Systems: All systems reviewed & are unremarkable except as noted in HPI and below Exam Const: General: comfortable and no acute distress Other: Pleasant male in no acute distress HENMT: Mouth: Yes moist mucous membranes Eyes: General: appearance normal, both eyes and all related structures Sclera: sclerae normal Pupils: Equal, round and reactive pupils present Neck: Neck: supple and no JVD Resp: Auscultation: wheezes scattered wheezes and diminished lung sounds bilateral Cardio: Rate: regular rate Rhythm: regular rhythm GI: GI Palp: Yes Soft to palpation Auscultation: normal bowel sounds Skin: General skin exam: normal color and no rashes or lesions noted Wounds: no wounds Neuro: General: gait normal Speech: normal speech Motor exam (neuro): 5/5 motor strength present throughout Sensory Exam: normal sensation Extrem: General: edema (2+ to 3+ BLE) bilateral Psych: Mental Status: mental status grossly normal Affect: normal affect Objective Data Vital Signs Vital Signs: Vital Signs - 24 hr 04/21/25 15:41 04/21/25 16:02 04/21/25 17:37 Temperature 98.2 F Pulse Rate 102 H 101 H Respiratory Rate 18 19 Blood Pressure 139/86 124/98 H Pulse Oximetry 95 98 96 Oxygen Delivery Room Air 04/21/25 18:43 04/21/25 18:57 04/21/25 19:03 Temperature Pulse Rate 103 H 105 H 96 Respiratory Rate 20 22 H 25 H Blood Pressure 138/98 H 133/88 Pulse Oximetry 93 93 Oxygen Delivery 04/21/25 19:12 04/21/25 22:19 04/21/25 22:20 Temperature 97.6 F Pulse Rate 99 100 Respiratory Rate 22 H 16 Blood Pressure 118/82 Pulse Oximetry 95 Oxygen Delivery Room Air 04/21/25 23:27 04/22/25 00:00 04/22/25 02:20 Temperature 98.0 F Pulse Rate 90 105 H 94 Respiratory Rate 16 22 H Blood Pressure 121/79 Pulse Oximetry 96 Oxygen Delivery 04/22/25 02:24 04/22/25 04:00 04/22/25 04:59 Temperature 97.7 F Pulse Rate 84 88 97 Respiratory Rate 22 H 16 Blood Pressure 135/83 Pulse Oximetry 97 Oxygen Delivery 04/22/25 08:00 04/22/25 08:00 04/22/25 08:20 Temperature 97.7 F Pulse Rate 96 87 86 Respiratory Rate 16 24 H Blood Pressure 132/80 Pulse Oximetry 96 Oxygen Delivery 04/22/25 08:22 04/22/25 08:30 04/22/25 08:38 Temperature Pulse Rate 90 Respiratory Rate 24 H Blood Pressure Pulse Oximetry 96 Oxygen Delivery Room Air Room Air Intake/Output Intake/Output: Intake & Output 04/19/25 04/20/25 04/21/25 04/22/25 23:59 23:59 23:59 23:59 Intake Total 150 Balance 150 Meds/Results Medications: Active Medications Generic Name Dose Route Start Last Admin Trade Name Freq PRN Reason Stop Dose Admin Albuterol/Ipratropium 3 ml 04/21/25 20:00 04/22/25 08:19 Ipratropium 0.5 Mg/Albuterol Sulfate 2.5 Mg (Base) Ampul.Neb 3 Ml INHALATION 3 ml Q6HRT RAIZA Administration Furosemide 40 mg 04/22/25 09:00 04/22/25 08:38 Furosemide Inj 40 Mg/4 Ml Vial IV PUSH 40 mg DAILY RAIZA Administration Pantoprazole Sodium 40 mg 04/21/25 21:00 04/22/25 08:37 Pantoprazole Sodium Iv 40 Mg Vial IV PUSH 40 mg Q12HR RAIZA Administration Perflutren Lipid Microsphere 0 ml 04/21/25 19:49 Perflutren Lipid Microspheres 1.5 Ml Vial Diluted To 10 Ml Total Volume IV PUSH 04/24/25 19:50 ONCE PRN adequate visualization Protocol Radiology Results: ITS Impressions Chest/Abdomen/Pelvis CTA 04/21/25 17:10 IMPRESSION: There is no pulmonary embolism, aortic dissection, pericardial fluid or thoracic aneurysm. Pulmonary nodules within the upper lungs bilaterally measuring up to 21 mm. There are enlarged mediastinal lymph nodes measuring up to 1.9 cm in short axis dimension. Malignancy cannot be excluded. Follow-up PET/CT is recommended. CTA chest PE abdomen pel INDICATION:sob, le edema, prostate cancer, dark stools . COMPARISON: None. TECHNIQUE: Axial images of the abdomen and pelvis were obtained following infusion of 100 mL Isovue 370. Dose optimization technique was utilized. FINDINGS: The lung bases are clear. The liver parenchyma is unremarkable. No intrahepatic mass or ductal dilatation is evident. The gallbladder is unremarkable. The pancreas and spleen are normal in appearance. The adrenal glands are symmetric in size. The kidneys demonstrate symmetric uptake and excretion of contrast. No cystic mass is evident. There is no solid mass. There is no hydronephrosis. The bladder and rectum are normal. No free intraperitoneal fluid or air is evident. There is no significant retroperitoneal lymphadenopathy. The aorta, visceral vessels and renal arteries demonstrate normal caliber and patency. The lower thoracic and lumbar vertebrae are in normal alignment. IMPRESSION: No acute abnormality is noted in the abdomen and pelvis. All CT scans at this facility are performed using low dose modulation techniques as appropriate to perform exam including the following: automated exposure control; use of iterative reconstruction technique; adjustment of the mA and/or kV according to patient size (this includes techniques or standardized protocols for targeted exams where dose is matched to indication/reason for exam). Venous Doppler Study 04/21/25 17:33 IMPRESSION: No acute findings. Ankle Brachial Index 04/22/25 11:40 IMPRESSION: Both ABIs are within normal limits. There is slight diminution of the left great toe index of 0.67. Labs Labs: Laboratory Results - last 24 hr 04/21/25 04/21/25 04/21/25 16:04 16:04 18:12 WBC 9.1 RBC 4.03 L Hgb 9.4 L Hct 31.3 L MCV 77.7 L MCH 23.3 L MCHC 30.0 L RDW 18.8 H Plt Count 363 MPV 10.0 Immature Gran % (Auto) 0.7 H Neut % (Auto) 66.0 Lymph % (Auto) 21.7 [place] % (Auto) 10.7 H Eos % (Auto) 0.3 Baso % (Auto) 0.6 Lymph # (Auto) 1.97 [place] # (Auto) 1.0 H Eos # (Auto) 0.0 Baso # (Auto) 0.1 Abs Immat Gran (auto) 0.06 H Absolute Neuts (auto) 6.0 Absolute Nucleated RBC 0.000 Nucleated RBC % 0.0 Absolute Retic Percent Retic Immature Retic Fraction Retic Hgb Content PT 15.6 H INR 1.2 APTT 33.4 Sodium 131 L Potassium 3.7 Chloride 103 Carbon Dioxide 22 Anion Gap 6 BUN 21 H Creatinine 0.87 Estim Creat Clear Calc 78 Estimated GFR > 60 Glucose 130 H Calcium 7.9 L Iron TIBC % Saturation Transferrin Ferritin Total Bilirubin 0.6 AST 53 ALT 36 Alkaline Phosphatase 119 Lactate Dehydrogenase NT-Pro-B Natriuret Pep 9180 H Cancelled Total Protein 7.1 Albumin 3.5 Vitamin B12 Folate TSH (Reflex) Blood Type O Positive Antibody Screen Negative RADHA, IgG Interpret RADHA, Poly Interpret RADHA, Complement Interp 04/21/25 04/21/25 04/22/25 19:21 19:21 00:26 WBC RBC Hgb 9.8 L 9.2 L Hct 32.2 L 30.3 L MCV MCH MCHC RDW Plt Count MPV Immature Gran % (Auto) Neut % (Auto) Lymph % (Auto) [place] % (Auto) Eos % (Auto) Baso % (Auto) Lymph # (Auto) [place] # (Auto) Eos # (Auto) Baso # (Auto) Abs Immat Gran (auto) Absolute Neuts (auto) Absolute Nucleated RBC Nucleated RBC % Absolute Retic 0.12 H Percent Retic 2.96 Immature Retic Fraction 26.8 H Retic Hgb Content 22.6 L PT INR APTT Sodium Potassium Chloride Carbon Dioxide Anion Gap BUN Creatinine Estim Creat Clear Calc Estimated GFR Glucose Calcium Iron 30 L TIBC 413 % Saturation 7 L Transferrin 301 Ferritin 15.60 Total Bilirubin 0.5 Cancelled AST ALT Alkaline Phosphatase Lactate Dehydrogenase 274 H NT-Pro-B Natriuret Pep Total Protein Albumin Vitamin B12 373.0 Folate 11.8 TSH (Reflex) 2.260 Blood Type Antibody Screen RADHA, IgG Interpret 1+ RADHA, Poly Interpret 1+ RADHA, Complement Interp Negative 04/22/25 05:21 WBC 9.6 RBC 4.00 L Hgb 9.4 L Hct 31.2 L MCV 78.0 L MCH 23.5 L MCHC 30.1 L RDW 18.7 H Plt Count 355 MPV 10.3 Immature Gran % (Auto) Neut % (Auto) Lymph % (Auto) [place] % (Auto) Eos % (Auto) Baso % (Auto) Lymph # (Auto) [place] # (Auto) Eos # (Auto) Baso # (Auto) Abs Immat Gran (auto) Absolute Neuts (auto) Absolute Nucleated RBC Nucleated RBC % Absolute Retic Percent Retic Immature Retic Fraction Retic Hgb Content PT INR APTT Sodium 131 L Potassium 4.2 Chloride 102 Carbon Dioxide 25 Anion Gap 4 BUN 16 Creatinine 0.90 Estim Creat Clear Calc 75 Estimated GFR > 60 Glucose 98 Calcium 8.0 L Iron TIBC % Saturation Transferrin Ferritin Total Bilirubin AST ALT Alkaline Phosphatase Lactate Dehydrogenase NT-Pro-B Natriuret Pep Total Protein Albumin Vitamin B12 Folate TSH (Reflex) Blood Type Antibody Screen RADHA, IgG Interpret RADHA, Poly Interpret RADHA, Complement Interp Quality VTE Prophylaxis VTE prophylaxis: mechanical ordered -Patient's previous records reviewed on admission -ER notes reviewed in detail on admission -discussed all findings and current treatment plan with patient/Family/POA -Consultations reviewed for recommendations -Patient's disposition for safe discharge discussed with case manager specialist -radiology imaging, EKG and test results I have personally reviewed and interpreted unless otherwise specified Dictation performed by [email or web address] direct speech recognition software, therefore tensile tester variants and typographical errors may occur. Hospitalist MIPS Advance Care Plan I have confirmed that the patient's Advanced Care Plan is present, code status is documented, or surrogate decision maker is listed in patient medical record.: Yes Medication Reconciliation I have utilized all available resources to obtain, update and review the patients current medications (includes all prescriptions, OTC, herbals, cannabis, and nutritional supplements).: Yes The patient is not eligible for med reconciliation; the patient is in a emergent medical situation where delaying treatment would jeopardize the patients health.: No
[2025-04-22 12:43] LABS: Hematocrit 34.4 % (42.0-52.0); Hemoglobin 10.3 g/dL (14.0-18.0)
--- NOTE | 2025-04-22 14:17 | P.CONCA_ITS ---
Assessment and Plan Assessment and plan (1) CHF exacerbation: Qualifiers: Heart failure type: unspecified Qualified Code(s): I50.9 - Heart failure, unspecified Code(s): I50.9 - Heart failure, unspecified Status: Acute (2) Cardiomyopathy: Code(s): I42.9 - Cardiomyopathy, unspecified Status: Acute (3) Bilateral pleural effusion: Code(s): J90 - Pleural effusion, not elsewhere classified Status: Acute (4) Prostate cancer: Code(s): C61 - Malignant neoplasm of prostate Status: Acute Plan Impression: 1. Patient markedly increased a BNP and shortness of breath likely suggest congestive heart failure. Echocardiogram shows severely reduced systolic function in range of 10-20% and global hypokinesis. Rule out ischemic cardiomyopathy. Patient likely has acute systolic heart failure. 2. Known history of coronary disease with the PTCA x2 in 2004. Details not known to me. Current EKG shows right bundle-branch block with left axis deviation and ischemic appearing T changes in anteroseptal leads. 3. Recent diagnosis of prostate CA. 4. History of anemia status post colonoscopy in October of 2024. Couple of small adenomatous polyps were noted and where removed. 5. Normal bilateral ankle brachial index. Negative CT scan of the chest for any pulmonary embolism or aortic dissection 6. Echocardiogram performed today shows ejection fraction of 10-20% left ventricle is mildly dilated. Right ventricle is of normal size and shows normal systolic function. There is biatrial enlargement. Recommendation: 1. Current blood pressure 132/76 and heart rate is 90 per minute. Will start patient on carvedilol, lisinopril, Lasix and Aldactone. 2. SGPL2 inhibitors could be started. Consider Farxiga. 3. Patient need further workup to rule out ischemic cardiomyopathy. Patient has history of previous the PTCA x2 in 2004. High possibility for ischemic cardiomyopathy. BUN creatinine are normal. Will go ahead with coronary angiography tomorrow. 4. DVT prophylaxis on aspirin for now. Further recommendations to follow. Thank you again for allowing us to participate in care this patient. History of Present Illness History of Present Illness Consult date/time: 04/22/25 14:17 Requesting physician: Bernadine Reyes APRN Consult reason: shortness of breath Reason For Visit: Acute CHF,anemia Narrative: Patient is a 64-year-old male admitted via emergency room on 04/21/2025 with complaints of shortness of breath. This is progressive worsening over last couple of days no associated chest pain, fever or chills. No complaints of palpitation dizziness or syncope. Patient has some associated lower extremity edema. Patient was recently diagnosed with prostate cancer. No history of hypertension, diabetes or previous cardiac problems. Past medical history is also significant for COPD and CAD. Patient is current smoker. Admitting blood pressure was 139/86 and heart rate was 102 per minute patient is afebrile. Pulse oximetry is 95 per Admitting laboratory data reveals WBC count 9.1, hemoglobin is 9.4 and platelets are normal. Sodium 131 , potassium is 3.7, BUN is 21 and creatinine is 0.87. ProBNP is 9180. Admitting CT scan of the chest revealed negative for pulmonary embolism aortic dissection or pericardial fluid. Patient has 2.1 cm nodules within upper lungs bilaterally as well as enlarged mediastinal lymph nodes measuring up to 1.9 cm. Malignancy cannot be excluded. PET scan performed December of 2024 reveals primary prostate cancer and possibly early metastatic lymph node spread. Venous Doppler showed no suggestion for deep venous thrombosis. EKG revealed sinus tachycardia with a right bundle branch block, primary T-wave changes in anterolateral leads and left axis deviation. Review of Systems 2 Review of Systems: Twelve point review of system was completed. Pertinent positive and negative findings per HPI. Constitutional negative for weight loss, fever or chills or weakness Head and neck is negative Pulmonary system positive for shortness of breath negative for wheezing or hemoptysis. Cardiovascular positive for shortness of breath negative for chest pain, palpitation or dizziness. Gastrointestinal negative for abdominal pain, nausea vomiting or diarrhea. Neurovascular negative Skin and musculoskeletal negative [facility] Past Medical History Medical History (Updated 04/22/25 @ 14:54 by Shital Rasmussen APRN) Hepatitis C Testicular cancer Prostate cancer CAD (coronary artery disease) COPD (chronic obstructive pulmonary disease) Surgical History Surgical History History of orchiectomy Hx of cholecystectomy 2009 History of coronary artery stent placement 2 stents Family History Family History Other No significant family history Social History Social History (Updated 04/21/25 @ 20:05 by Niki Benz APRN) Social History: He lives home alone and is . he has 2 sons. 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 code status : full code Smoking packs per day: 1 Smoking cigarettes per day: 20.0 Years smoked: 55 Smoking pack-years: 55.00 Smoking status: Current every day smoker Tobacco type: cigarettes Alcohol intake: current Drinks per week: 4 Substance use: current Substance use type: marijuana, crack/cocaine and amphetamines Other substance usage details: few x per week Last use: 04/21/25 Lack of Transportation: YES Lack of Food: Sometimes True Current Housing: I Have Housing Concerned About Future Housing: No Difficulty Paying Gas/Electric Bills: YES Difficulty Paying for Meds: No Currently Unemployed: No Education: Grade School Difficulty w/ Childcare or Family Care: No Living arrangements: alone Spiritual care concerns: No Meds Home Medications and Allergies Home Medications ?Medication ?Instructions ?Recorded ?Confirmed ?Type [id number] 250 1 tablet PO PRN hea dache 11/05/24 04/21/25 History mg-250 mg-65 mg tablet (Excedrin Migraine) Allergies Allergy/AdvReac Type Severity Reaction Status Date / Time No Known Allergies Allergy Mild Verified 04/21/25 22:30 Vital Signs Vital Signs - 24 hr 04/21/25 15:41 04/21/25 16:02 04/21/25 17:37 Temperature 36.8 C Pulse Rate 102 H 101 H Respiratory Rate 18 19 Blood Pressure 139/86 124/98 H Pulse Oximetry 95 98 96 Oxygen Delivery Room Air 04/21/25 18:43 04/21/25 18:57 04/21/25 19:03 Temperature Pulse Rate 103 H 105 H 96 Respiratory Rate 20 22 H 25 H Blood Pressure 138/98 H 133/88 Pulse Oximetry 93 93 Oxygen Delivery 04/21/25 19:12 04/21/25 22:19 04/21/25 22:20 Temperature 36.4 C Pulse Rate 99 100 Respiratory Rate 22 H 16 Blood Pressure 118/82 Pulse Oximetry 95 Oxygen Delivery Room Air 04/21/25 23:27 04/22/25 00:00 04/22/25 02:20 Temperature 36.7 C Pulse Rate 90 105 H 94 Respiratory Rate 16 22 H Blood Pressure 121/79 Pulse Oximetry 96 Oxygen Delivery 04/22/25 02:24 04/22/25 04:00 04/22/25 04:59 Temperature 36.5 C Pulse Rate 84 88 97 Respiratory Rate 22 H 16 Blood Pressure 135/83 Pulse Oximetry 97 Oxygen Delivery 04/22/25 08:00 04/22/25 08:00 04/22/25 08:20 Temperature 36.5 C Pulse Rate 96 87 86 Respiratory Rate 16 24 H Blood Pressure 132/80 Pulse Oximetry 96 Oxygen Delivery 04/22/25 08:22 04/22/25 08:30 04/22/25 08:38 Temperature Pulse Rate 90 Respiratory Rate 24 H Blood Pressure Pulse Oximetry 96 Oxygen Delivery Room Air Room Air 04/22/25 12:00 04/22/25 14:07 Temperature Pulse Rate 100 92 Respiratory Rate 20 Blood Pressure Pulse Oximetry Oxygen Delivery Exam 2 Narrative: Patient was examined at the bedside. Patient appears to be chronically ill but not in acute distress. Head and neck examination is unremarkable. Neck is supple. There is no JVD or carotid bruit. Thyroid enlargement Lungs are clear auscultation and percussion . Heart sounds reveal normal S1-S2 regular Abdomen is soft and nontender. There is no hepatosplenomegaly probable sounds present throughout Extremities reveal no pedal edema. Results Labs and Meds 04/22/25 12:25 04/22/25 05:21 Lab results: Cardiac Enzymes 04/21/25 04/21/25 Range/Units 16:04 19:21 AST 53 (17-59) U/L Lactate Dehydrogenase 274 H (120-246) U/L Coagulation 04/21/25 Range/Units 16:04 PT 15.6 H (11.1-14.7) Seconds APTT 33.4 (22.3-36.8) Seconds CBC 04/21/25 04/21/25 04/22/25 Range/Units 16:04 19:21 00:26 WBC 9.1 (4.5-10.0) K/mm3 RBC 4.03 L (4.6-6.20) M/mm3 Hgb 9.4 L 9.8 L 9.2 L (14.0-18.0) g/dL Hct 31.3 L 32.2 L 30.3 L (42.0-52.0) % Plt Count 363 (150-375) k/mm3 Lymph # (Auto) 1.97 (0.9-3.2) K/mm3 [place] # (Auto) 1.0 H (0.1-0.6) K/mm3 Eos # (Auto) 0.0 (0-0.3) K/mm3 Baso # (Auto) 0.1 (0.0-0.1) K/mm3 04/22/25 04/22/25 Range/Units 05:21 12:25 WBC 9.6 (4.5-10.0) K/mm3 RBC 4.00 L (4.6-6.20) M/mm3 Hgb 9.4 L 10.3 L (14.0-18.0) g/dL Hct 31.2 L 34.4 L (42.0-52.0) % Plt Count 355 (150-375) k/mm3 Lymph # (Auto) (0.9-3.2) K/mm3 [place] # (Auto) (0.1-0.6) K/mm3 Eos # (Auto) (0-0.3) K/mm3 Baso # (Auto) (0.0-0.1) K/mm3 Comprehensive Metabolic Panel 04/21/25 04/22/25 Range/Units 16:04 05:21 Sodium 131 L 131 L (137-145) mmol/L Potassium 3.7 4.2 (3.4-5.0) mmol/L Chloride 103 102 (98-107) mmol/L Carbon Dioxide 22 25 (22-30) mmol/L BUN 21 H 16 (9-20) mg/dL Creatinine 0.87 0.90 (0.7-1.3) mg/dL Glucose 130 H 98 (65-110) mg/dL Calcium 7.9 L 8.0 L (8.4-10.2) mg/dL AST 53 (17-59) U/L ALT 36 (6-50) U/L Alkaline Phosphatase 119 (38-126) U/L Total Protein 7.1 (6.3-8.2) g/dL Albumin 3.5 (3.5-5.1) g/dL Intake and Output 04/21/25 04/22/25 04/22/25 23:59 07:59 15:59 Intake Total 150 690 Balance 150 690 Intake: Oral 150 690 Other: # Unmeasured Voids 2
--- OUTSIDE RECORDS SUMMARY | 2025-04-22 15:24 | XMS_ITS | Data Portability ---
Author Organization [facility] ALMAZTerry Stefani Davis Address [address] 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 Refuses any respiratory immunizations today [email or web address] Not available 03/27/2024 16:39:43 05/29/2024 05/29/2024 start [...] refused all. Start aspirin 81 mg daily [email or web address] Not available 05/30/2024 12:33:58 06/24/2024 06/24/2024 quitting tobacco care instructions. Assessments reviewed screenings and immunizations ordered were appropriate and patient agreeable keep regular medical follow up [email or web address] Not available 06/28/2024 21:36:18 07/10/2024 07/10/2024 I want to refer him to Cardiology he states that he will not go because he ended last encounter on bad terms. I said we can always see another emergency medicine physician assistant and he really was not agreeable to that as yet. I am going to get try to get him seen by an composite laminator because the patient thinks that he is [...] antihypertensive therapy today and he has refused [email or web address] Not available 07/11/2024 16:49:48 10/09/2024 10/09/2024 I [...] lead to sudden or chronic medical illness Not available 10/09/2024 16:00:48 Plan of Treatment Reminders Order Date Submit Date Provider Last Modified By Organization Details Last Modified Time Details Appointments None recorded. Lab lipid panel, serum 2024 025 [facility], [address], [address], [place], [address], 09:02:12 CBC w/ auto diff 2024 025 [facility], [address], [address], [place], [address], 09:02:15 CMP, serum or plasma 2024 025 [facility], [address], [address], [place], [address], 5 09:02:14 PSA, total, serum or plasma 2023 024 [facility], [address], [address], [place], [address], 4 17:09:36 CBC w/ auto diff 2023 024 [facility], [address], [address], [place], [address], 4 17:09:35 CMP, serum or plasma 2023 024 [facility], [address], [address], [place], [address], 4 17:09:31 lipid panel, serum 2023 024 [facility], [address], [address], [place], [address], 4 17:09:30 urinalysis , complete 2023 024 [facility], [address], [address], [place], [address], 4 17:09:33 Referral composite laminator referral 2024 025 [facility], [address], [place], [address], 5 13:14:22 Procedures colonoscop y screening (PROC) 2024 025 [facility], [address], [address], [place], [address], 11:58:27 Surgeries None recorded. Imaging LDCT, chest, for lung cancer screening [address] (Imaging), [address], [place], [address], 16:06:23 LDCT, chest, for lung cancer screening 2023 [facility]), [address] [place], [address], 11:36:31 Medication Orders albuterol sulfate HFA 90 mcg/actuat ion aerosol inhaler 2024 025 [facility] #[id number], [address], [place], [id number], 14:27:45 aspirin 81 mg capsule 2023 024 [email or web address] [facility] #[id number], [address], [place], [id number], 4 13:34:55 losartan 25 mg tablet 2023 024 [email or web address] [facility] #[id number], [address], [place], [id number], 4 13:34:55 atorvastat in 10 mg tablet 2023 024 [email or web address] #[id number], [address], [place], [id number], 4 13:34:55 Patient TargetsNo targets recorded. Patient Instructions Encounter Date Encounter Id Patient Instructions Last Modified By Organization Details Last Modified Time 03/27/2024 [id number] Quitting Tobacco : Care Instructions [email or web address] Not available 03/27/2024 15:56:13 05/29/2024 [id number] A healthy lifestyle: care instructions Not available 05/29/2024 13:34:55 06/24/2024 [id number] Quitting Tobacco : Care Instructions [email or web address] Not available 06/24/2024 12:53:44 Medicare Well[facility] Preventive Checklist [email or web address] Not available 06/24/2024 12:53:44 07/10/2024 [id number] A healthy lifestyle: care instructions [email or web address] Not available 07/10/2024 12:59:33 10/09/2024 [id number] A healthy lifestyle: care instructions [email or web address] Not available 10/09/2024 14:27:45 Quitting Tobacco : Care Instructions [email or web address] Not available 10/09/2024 14:27:45 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) [address] [facility], [place], [address], 04/04/2024 17:09:29 04/03/2004/04/2024 LIPID PANEL cholesterol, total 124 mg/dL 100-19 9 Not Available [facility] ([facility]) [address] [facility], [place], [address], 04/04/2024 17:09:30 04/03/2004/04/2024 LIPID PANEL triglyceride s 72 mg/dL 0-149 Not Available [facility]) [address] [place], [address], 04/04/2024 17:09:30 04/03/20 24 04/04/2024 LIPID PANEL HDL cholesterol 39 mg/dL >39 below low normal Not Available [facility] ([facility]) [address] [facility], [place], [address], 04/04/2024 17:09:30 04/03/20 24 04/04/2024 LIPID PANEL VLDL cholesterol talha 15 mg/dL 5-40 Not Available [facility]) [address] [facility], [place], [address], 04/04/2024 17:09:30 04/03/2004/04/2024 LIPID PANEL LDL chol calc ([facility]) 70 mg/dL 0-99 Not Available [facility]) [address] [facility], [place], [address], 04/04/2024 17:09:30 04/03/20 24 04/04/2024 COMP. METAB OLIC PANEL (14) glucose 99 mg/dL 70-99 Not Available [facility] ([facility]) [address] [place], [address], 04/04/2024 17:09:31 04/03/20 24 04/04/2024 COMP. METAB OLIC PANEL (14) BUN 16 mg/dL 8-27 Not Available [facility] ([facility]) [address] [place], [address], 04/04/2024 17:09:31 04/03/20 24 04/04/2024 COMP. METAB OLIC PANEL (14) creatinine 0.89 mg/dL 0.76-1 .27 Not Available [facility] ([facility]) [address] [place], [address], 04/04/2024 17:09:31 04/03/20 24 04/04/2024 COMP. METAB OLIC PANEL (14) eGFR 96 mL/mi n/1.7 3 >59 Not Available [facility] ([facility]) [address] [facility], [place], [address], 04/04/2024 17:09:31 04/03/2004/04/2024 COMP. METAB OLIC PANEL (14) BUN/creatini ne ratio 18 04-09 Not Available [facility] ([facility]) [address] [facility], [place], [address], 04/04/2024 17:09:31 04/03/2004/04/2024 COMP. METAB OLIC PANEL (14) sodium 135 mmol/ L 134-14 4 Not Available [facility] ([facility]) [address] [facility], [place], [address], 04/04/2024 17:09:31 04/03/20 24 04/04/2024 COMP. METAB OLIC PANEL (14) potassium 4.8 mmol/ L 3.5-5. 2 Not Available [facility] ([facility]) [address] [facility], [place], [address], 04/04/2024 17:09:31 04/03/2004/04/2024 COMP. METAB OLIC PANEL (14) chloride 101 mmol/ L 96-106 Not Available [facility] ([facility]) [address] [facility], [place], [address], 04/04/2024 17:09:31 04/03/20 24 04/04/2024 COMP. METAB OLIC PANEL (14) carbon dioxide, total 24 mmol/ L 20-29 Not Available [facility] ([facility]) [address] [facility], [place], [address], 04/04/2024 17:09:31 04/03/20 24 04/04/2024 COMP. METAB OLIC PANEL (14) calcium 9.1 mg/dL 8.6-10 .2 Not Available [facility] ([facility]) [address] [facility], [place], [address], 04/04/2024 17:09:31 04/03/20 24 04/04/2024 COMP. METAB OLIC PANEL (14) protein, total 6.9 g/dL 6.0-8. 5 Not Available [facility] ([facility]) [address] [facility] [place], [address], 04/04/2024 17:09:31 04/03/20 24 04/04/2024 COMP. METAB OLIC PANEL (14) albumin 3.7 g/dL 3.9-4. 9 below low normal Not Available [facility] ([facility]) [address] [facility] [place], [address], 04/04/2024 17:09:31 04/03/20 24 04/04/2024 COMP. METAB OLIC PANEL (14) globulin, total 3.2 g/dL 1.5-4. 5 Not Available [facility] ([facility]) [address] [facility] [place], [address], 04/04/2024 17:09:31 04/03/20 24 04/04/2024 COMP. METAB OLIC PANEL (14) bilirubin, total <0.2 mg/dL 0.0-1. 2 Not Available [facility] ([facility]) [address] [facility] [place], [address], 04/04/2024 17:09:31 04/03/20 24 04/04/2024 COMP. METAB OLIC PANEL (14) alkaline phosphatase 186 IU/L 44-121 above high normal Not Available [facility] ([facility]) [address] [facility] [place], [address], 04/04/2024 17:09:31 04/03/20 24 04/04/2024 COMP. METAB OLIC PANEL (14) AST (SGOT) 19 IU/L 0-40 Not Available [facility] ([facility]) [address] [facility] [place], [address], 04/04/2024 17:09:31 04/03/20 24 04/04/2024 COMP. METAB OLIC PANEL (14) ALT (SGPT) 20 IU/L 0-44 Not Available [facility] ([facility]) [address] [facility], [place], [address], 04/04/2024 17:09:31 04/03/20 24 04/04/2024 URINA LYSIS , COMPL ETE specific gravity - Test not perfo rmed. Patie nt was unabl e to provi de a self- colle cted speci men for the reque sted testi ng. The follo wing test( s) were not perfo rmed: Not Available [facility] ([facility]) [address] [facility], [place], [address], 04/04/2024 17:09:33 04/03/20 24 04/04/2024 URINA LYSIS , COMPL ETE pH - Test not perfo rmed Not Available [facility] ([facility]) [address] [facility], [place], [address], 04/04/2024 17:09:33 04/03/2004/04/2024 URINA LYSIS , COMPL ETE protein - Test not perfo rmed Not Available [facility] ([facility]) [address] [facility], [place], [address], 04/04/2024 17:09:33 04/03/20 24 04/04/2024 URINA LYSIS , COMPL ETE glucose - Test not perfo rmed Not Available [facility] ([facility]) [address] [place], [address], 04/04/2024 17:09:33 04/03/2004/04/2024 URINA LYSIS , COMPL ETE ketones - Test not perfo rmed Not Available [facility] ([facility]) [address] [place], [address], 04/04/2024 17:09:33 04/03/2004/03/2024 UNABL E TO VOID unable to void Commen t Patie nt unabl e to void. Urine to be colle cted at a later date. Not Available [facility] ([facility]) [address] [facility], [place], [address], 04/04/2024 17:09:34 04/03/20 24 04/04/2024 CBC WITH DIFFE RENTI AL/PL ATELE T WBC 11.5 x10e3 /uL 3.4-10 .8 above high normal Not Available [facility] ([facility]) [address] [facility], [place], [address], 04/04/2024 17:09:35 04/03/2004/04/2024 CBC WITH DIFFE RENTI AL/PL ATELE T RBC 4.04 x10e6 /uL 4.14-5 .80 below low normal Not Available [facility] ([facility]) [address] [facility], [place], [address], 04/04/2024 17:09:35 04/03/20 24 04/04/2024 CBC WITH DIFFE RENTI AL/PL ATELE T hemoglobin 11.3 g/dL 13.0-1 7.7 below low normal Not Available [facility] ([facility]) [address] [facility], [place], [address], 04/04/2024 17:09:35 04/03/20 24 04/04/2024 CBC WITH DIFFE RENTI AL/PL ATELE T hematocrit 36.4 % 37.5-5 1.0 below low normal Not Available [facility] ([facility]) [address] [place], [address], 04/04/2024 17:09:35 04/03/20 24 04/04/2024 CBC WITH DIFFE RENTI AL/PL ATELE T MCV 90 fL 79-97 Not Available [facility] ([facility]) [address] [place], [address], 04/04/2024 17:09:35 04/03/20 24 04/04/2024 CBC WITH DIFFE RENTI AL/PL ATELE T MCH 28.0 pg 26.6-3 3.0 Not Available [facility] ([facility]) [address] [facility], [place], [address], 04/04/2024 17:09:35 04/03/20 24 04/04/2024 CBC WITH DIFFE RENTI AL/PL ATELE T MCHC 31.0 g/dL 31.5-3 5.7 below low normal Not Available [facility] ([facility]) [address] [facility], [place], [address], 04/04/2024 17:09:35 04/03/20 24 04/04/2024 CBC WITH DIFFE RENTI AL/PL ATELE T RDW 12.5 % 11.6-1 5.4 Not Available [facility] ([facility]) [address] [facility], [place], [address], 04/04/2024 17:09:35 04/03/20 24 04/04/2024 CBC WITH DIFFE RENTI AL/PL ATELE T platelets 397 x10e3 /uL 150-45 0 Not Available [facility] ([facility]) [address] [facility], [place], [address], 04/04/2024 17:09:35 04/03/20 24 04/04/2024 CBC WITH DIFFE RENTI AL/PL ATELE T neutrophils 67 % notest ab. Not Available [facility] ([facility]) [address] [facility], [place], [address], 04/04/2024 17:09:35 04/03/20 24 04/04/2024 CBC WITH DIFFE RENTI AL/PL ATELE T lymphs 21 % notest ab. Not Available [facility] ([facility]) [address] [facility], [place], [address], 04/04/2024 17:09:35 04/03/20 24 04/04/2024 CBC WITH DIFFE RENTI AL/PL ATELE T monocytes 10 % notest ab. Not Available [facility] ([facility]) [address] [facility], [place], [address], 04/04/2024 17:09:35 04/03/20 24 04/04/2024 CBC WITH DIFFE RENTI AL/PL ATELE T eos 1 % notest ab. Not Available [facility] ([facility]) [address] [facility], [place], [address], 04/04/2024 17:09:35 04/03/20 24 04/04/2024 CBC WITH DIFFE RENTI AL/PL ATELE T basos 0 % notest ab. Not Available [facility] ([facility]) [address] [facility], [place], [address], 04/04/2024 17:09:35 04/03/20 24 04/04/2024 CBC WITH DIFFE RENTI AL/PL ATELE T neutrophils (absolute) 7.7 x10e3 /uL 1.4-7. 0 above high normal Not Available [facility] ([facility]) [address] [facility], [place], [address], 04/04/2024 17:09:35 04/03/20 24 04/04/2024 CBC WITH DIFFE RENTI AL/PL ATELE T lymphs (absolute) 2.4 x10e3 /uL 0.7-3. 1 Not Available [facility] ([facility]) [address] [place], [address], 04/04/2024 17:09:35 04/03/20 24 04/04/2024 CBC WITH DIFFE RENTI AL/PL ATELE T monocytes(ab solute) 1.1 x10e3 /uL 0.1-0. 9 above high normal Not Available [facility] ([facility]) [address] [place], [address], 04/04/2024 17:09:35 04/03/20 24 04/04/2024 CBC WITH DIFFE RENTI AL/PL ATELE T eos (absolute) 0.1 x10e3 /uL 0.0-0. 4 Not Available [facility] ([facility]) [address] [facility], [place], [address], 04/04/2024 17:09:35 04/03/20 24 04/04/2024 CBC WITH DIFFE RENTI AL/PL ATELE T baso (absolute) 0.1 x10e3 /uL 0.0-0. 2 Not Available [facility] ([facility]) [address] [facility], [place], [address], 04/04/2024 17:09:35 04/03/20 24 04/04/2024 CBC WITH DIFFE RENTI AL/PL ATELE T immature granulocytes 1 % notest ab. Not Available [facility] ([facility]) [address] [facility], [place], [address], 04/04/2024 17:09:35 04/03/20 24 04/04/2024 CBC WITH DIFFE RENTI AL/PL ATELE T immature grans (abs) 0.1 x10e3 /uL 0.0-0. 1 Not Available [facility] ([facility]) [address] [facility], [place], [address], 04/04/2024 17:09:35 04/03/20 24 04/04/2024 PROST ATE-S [...] or kits canno t be used inter [place] . Resul ts canno t be inter prete d as absol cyrus evide nce of the prese nce [facility]. Not Available [facility] ([facility]) [address] [place], [address], 04/04/2024 17:09:36 10/10/19 25 10/10/2024 LIPID PANEL cholesterol, total 111 mg/dL 100-19 9 Not Available [facility] ([facility]) [address] [place], [address], 10/10/2024 09:02:12 10/10/1910/10/2024 LIPID PANEL triglyceride s 65 mg/dL 0-149 Not Available [facility] ([facility]) [address] [place], [address], 10/10/2024 09:02:12 10/10/19 25 10/10/2024 LIPID PANEL HDL cholesterol 38 mg/dL >39 below low normal Not Available [facility] ([facility]) [address] [place], [address], 10/10/2024 09:02:12 10/10/19 25 10/10/2024 LIPID PANEL VLDL cholesterol talha 14 mg/dL 5-40 Not Available [facility] ([facility]) [address] [place], [address], 10/10/2024 09:02:12 10/10/19 25 10/10/2024 LIPID PANEL LDL chol calc ([facility]) 59 mg/dL 0-99 Not Available [facility]) [address] [place], [address], 10/10/2024 09:02:12 10/10/19 25 10/10/2024 COMP. METAB OLIC PANEL (14) glucose 71 mg/dL 70-99 Not Available [facility] ([facility]) [address] [place], [address], 10/10/2024 09:02:14 10/10/19 25 10/10/2024 COMP. METAB OLIC PANEL (14) BUN 13 mg/dL 8-27 Not Available [facility] ([facility]) [address] [facility] [place], [address], 10/10/2024 09:02:14 10/10/19 25 10/10/2024 COMP. METAB OLIC PANEL (14) creatinine 0.74 mg/dL 0.76-1 .27 below low normal Not Available [facility] ([facility]) [address] [facility] [place], [address], 10/10/2024 09:02:14 10/10/19 25 10/10/2024 COMP. METAB OLIC PANEL (14) eGFR 101 mL/mi n/1.7 3 >59 Not Available [facility] ([facility]) [address] [facility] [place], [address], 10/10/2024 09:02:14 10/10/1910/10/2024 COMP. METAB OLIC PANEL (14) BUN/creatini ne ratio 18 10-24 Not Available [facility] ([facility]) [address] [facility] [place], [address], 10/10/2024 09:02:14 10/10/1910/10/2024 COMP. METAB OLIC PANEL (14) sodium 136 mmol/ L 134-14 4 Not Available [facility] ([facility]) [address] [facility] [place], [address], 10/10/2024 09:02:14 10/10/1910/10/2024 COMP. METAB OLIC PANEL (14) potassium 4.7 mmol/ L 3.5-5. 2 Not Available [facility] ([facility]) [address] [facility] [place], [address], 10/10/2024 09:02:14 10/10/1910/10/2024 COMP. METAB OLIC PANEL (14) chloride 104 mmol/ L 96-106 Not Available [facility] ([facility]) [address] [facility] [place], [address], 10/10/2024 09:02:14 10/10/1910/10/2024 COMP. METAB OLIC PANEL (14) carbon dioxide, total 20 mmol/ L 20-29 Not Available [facility] ([facility]) [address] [facility] [place], [address], 10/10/2024 09:02:14 10/10/1910/10/2024 COMP. METAB OLIC PANEL (14) calcium 8.6 mg/dL 8.6-10 .2 Not Available [facility] ([facility]) [address] [facility] [place], [address], 10/10/2024 09:02:14 10/10/1910/10/2024 COMP. METAB OLIC PANEL (14) protein, total 7.0 g/dL 6.0-8. 5 Not Available [facility] ([facility]) [address] [facility] [place], [address], 10/10/2024 09:02:14 10/10/1910/10/2024 COMP. METAB OLIC PANEL (14) albumin 3.4 g/dL 3.9-4. 9 below low normal Not Available [facility] ([facility]) [address] [facility] [place], [address], 10/10/2024 09:02:14 10/10/1910/10/2024 COMP. METAB OLIC PANEL (14) globulin, total 3.6 g/dL 1.5-4. 5 Not Available [facility] ([facility]) [address] [facility] [place], [address], 10/10/2024 09:02:14 10/10/1910/10/2024 COMP. METAB OLIC PANEL (14) bilirubin, total <0.2 mg/dL 0.0-1. 2 Not Available [facility] ([facility]) [address] [facility] [place], [address], 10/10/2024 09:02:14 10/10/1910/10/2024 COMP. METAB OLIC PANEL (14) alkaline phosphatase 162 IU/L 44-121 above high normal Not Available [facility] ([facility]) [address] [facility] [place], [address], 10/10/2024 09:02:14 10/10/1910/10/2024 COMP. METAB OLIC PANEL (14) AST (SGOT) 18 IU/L 0-40 Not Available [facility] ([facility]) [address] [facility] [place], [address], 10/10/2024 09:02:14 10/10/1910/10/2024 COMP. METAB OLIC PANEL (14) ALT (SGPT) 14 IU/L 0-44 Not Available [facility] ([facility]) [address] [facility] [place], [address], 10/10/2024 09:02:14 10/10/1910/10/2024 CBC WITH DIFFE RENTI AL/PL ATELE T WBC 11.8 x10e3 /uL 3.4-10 .8 above high normal Not Available [facility] ([facility]) [address] [facility] [place], [address], 10/10/2024 09:02:15 10/10/1910/10/2024 CBC WITH DIFFE RENTI AL/PL ATELE T RBC 2.96 x10e6 /uL 4.14-5 .80 below low normal Not Available [facility] ([facility]) [address] [facility] [place], [address], 10/10/2024 09:02:15 10/10/1910/10/2024 CBC WITH DIFFE RENTI AL/PL ATELE T hemoglobin 7.9 g/dL 13.0-1 7.7 below low normal Not Available [facility] ([facility]) [address] [place], [address], 10/10/2024 09:02:15 10/10/1910/10/2024 CBC WITH DIFFE RENTI AL/PL ATELE T hematocrit 26.5 % 37.5-5 1.0 below low normal Not Available [facility] ([facility]) [address] [place], [address], 10/10/2024 09:02:15 10/10/1910/10/2024 CBC WITH DIFFE RENTI AL/PL ATELE T MCV 90 fL 79-97 Not Available [facility] ([facility]) [address] [place], [address], 10/10/2024 09:02:15 10/10/1910/10/2024 CBC WITH DIFFE RENTI AL/PL ATELE T MCH 26.7 pg 26.6-3 3.0 Not Available [facility] ([facility]) [address] [place], [address], 10/10/2024 09:02:15 10/10/1910/10/2024 CBC WITH DIFFE RENTI AL/PL ATELE T MCHC 29.8 g/dL 31.5-3 5.7 below low normal Not Available [facility] ([facility]) [address] [place], [address], 10/10/2024 09:02:15 10/10/1910/10/2024 CBC WITH DIFFE RENTI AL/PL ATELE T RDW 14.7 % 11.6-1 5.4 Not Available [facility] ([facility]) [address] [place], [address], 10/10/2024 09:02:15 10/10/19 25 10/10/2024 CBC WITH DIFFE RENTI AL/PL ATELE T platelets 725 x10e3 /uL 150-45 0 above high normal Not Available [facility] ([facility]) [address] [facility], [place], [address], 10/10/2024 09:02:15 10/10/1910/10/2024 CBC WITH DIFFE RENTI AL/PL ATELE T neutrophils 63 % notest ab. Not Available [facility] ([facility]) [address] [facility], [place], [address], 10/10/2024 09:02:15 10/10/19 25 10/10/2024 CBC WITH DIFFE RENTI AL/PL ATELE T lymphs 26 % notest ab. Not Available [facility] ([facility]) [address] [facility], [place], [address], 10/10/2024 09:02:15 10/10/19 25 10/10/2024 CBC WITH DIFFE RENTI AL/PL ATELE T monocytes 9 % notest ab. Not Available [facility] ([facility]) [address] [facility], [place], [address], 10/10/2024 09:02:15 10/10/19 25 10/10/2024 CBC WITH DIFFE RENTI AL/PL ATELE T eos 1 % notest ab. Not Available [facility] ([facility]) [address] [facility], [place], [address], 10/10/2024 09:02:15 10/10/19 25 10/10/2024 CBC WITH DIFFE RENTI AL/PL ATELE T basos 0 % notest ab. Not Available [facility] ([facility]) [address] [facility], [place], [address], 10/10/2024 09:02:15 10/10/19 25 10/10/2024 CBC WITH DIFFE RENTI AL/PL ATELE T neutrophils (absolute) 7.5 x10e3 /uL 1.4-7. 0 above high normal Not Available [facility] ([facility]) [address] [place], [address], 10/10/2024 09:02:15 10/10/1910/10/2024 CBC WITH DIFFE RENTI AL/PL ATELE T lymphs (absolute) 3.1 x10e3 /uL 0.7-3. 1 Not Available [facility] ([facility]) [address] [place], [address], 10/10/2024 09:02:15 10/10/1910/10/2024 CBC WITH DIFFE RENTI AL/PL ATELE T monocytes(ab solute) 1.0 x10e3 /uL 0.1-0. 9 above high normal Not Available [facility] ([facility]) [address] [place], [address], 10/10/2024 09:02:15 10/10/1910/10/2024 CBC WITH DIFFE RENTI AL/PL ATELE T eos (absolute) 0.1 x10e3 /uL 0.0-0. 4 Not Available [facility] ([facility]) [address] [place], [address], 10/10/2024 09:02:15 10/10/1910/10/2024 CBC WITH DIFFE RENTI AL/PL ATELE T baso (absolute) 0.0 x10e3 /uL 0.0-0. 2 Not Available [facility] ([facility]) [address] [place], [address], 10/10/2024 09:02:15 10/10/1910/10/2024 CBC WITH DIFFE RENTI AL/PL ATELE T immature granulocytes 1 % notest ab. Not Available [facility] ([facility]) [address] [place], [address], 10/10/2024 09:02:15 10/10/19 25 10/10/2024 CBC WITH DIFFE RENTI AL/PL ATELE T immature grans (abs) 0.1 x10e3 /uL 0.0-0. 1 Not Available [facility] ([facility]) [address] [facility], [place], [address], 10/10/2024 09:02:15 10/22/19 25 10/22/2024 VITAM IN B12 AND FOLAT E vitamin B12 340 pg/mL 232-12 45 Not Available [facility] ([facility]) [address] [place], [address], 10/22/2024 06:51:15 10/22/1910/22/2024 VITAM IN B12 AND FOLAT E folate (folic acid), serum 10.2 NG/mL >3.0 A serum folat e paul ntrat ion of less than 3.1 ng/mL is consi dered to repre sent clini talha defic iency . Not Available [facility] ([facility]) [address] [place], [address], 10/22/2024 06:51:15 10/22/1910/22/2024 IRON AND TIBC iron bind.cap.(TI BC) 383 ug/dL 250-45 0 Not Available [facility] ([facility]) [address] [place], [address], 10/22/2024 06:51:16 10/22/19 25 10/22/2024 IRON AND TIBC UIBC 371 ug/dL 111-34 3 above high normal Not Available [facility] ([facility]) [address] [place], [address], 10/22/2024 06:51:16 10/22/19 25 10/22/2024 IRON AND TIBC iron 12 ug/dL 38-169 below low normal Not Available [facility] ([facility]) [address] [place], [address], 10/22/2024 06:51:16 10/22/19 25 10/22/2024 IRON AND TIBC iron saturation 3 % 15-55 alert low Not Available [facility] ([facility]) [address] [facility], [place], [address], 10/22/2024 06:51:16 10/22/19 25 10/22/2024 ELYSIA TIN ferritin 17 NG/mL 30-400 below low normal Not Available [facility] ([facility]) [address] [facility], [place], [address], 10/22/2024 06:51:17 10/22/19 25 10/22/2024 RETIC ULOCY TE COUNT reticulocyte count 2.7 % 0.6-2. 6 above high normal Ulises ified by repea t kevin sis Not Available [facility] ([facility]) [address] [facility], [place], [address], 10/22/2024 06:51:18 10/27/19 25 10/27/2024 COLOF IT,OC CULT BLOOD ,FECA L,IA occult blood, fecal, ia POSITI VE negati ve abnormal Not Available [facility] ([facility]) [address] [facility], [place], [address], 10/27/2024 15:21:53 04/21/20 25 04/21/2025 imagi ng/di agnos tic resul t No observ ation record ed. [facility] [address], [place], [address], 04/21/2025 18:20:30 04/21/20 25 04/21/2025 imagi ng/di agnos tic resul t No observ ation record ed. [facility] [address], [place], [address], 04/21/2025 18:37:13 04/22/20 25 04/22/2025 imagi ng/di agnos tic resul t No observ ation record ed. [facility] [address], [place], [address], 04/22/2025 12:45:15 04/22/20 25 04/22/2025 imagi ng/di agnos tic resul t No observ ation record ed. [facility] [address], [place], [address], 04/22/2025 14:18:03 Result Notes None recorded. Problems Name Problem SNOMED Code Status Onset Date Resolution Date Notes Provider Name and Address Organization Details Recorded Time Anaphylaxi s 18161272 Active 2017 Casa Vanegas [place] null, [place] - [facility] 8 12:39:31 Essential hypertensi on 66789328 Active 2023 Joesph Quinn [place] null, [place] - [facility] 4 13:15:33 Smoker 32561104 Active 2023 Brennon Hillman MD Attn: Julia lópez,[address] [place], [address], [place] - [facility] 4 16:39:10 Coronary atheroscle rosis 760563353 Active 2023 Brennon Hillman MD Attn: Julia lópez,[address] [place], [address], [place] [facility] 5 16:00:18 Hyperlipid emia 26670517 Active 2023 Brennon Hillman MD Attn: Julia lópez,[address] [facility], [place], [address], [place] [facility] 4 16:39:16 Colonoscop y declined 372376341860 100 Active 2023 Brennon Hillman MD Attn: Julia lópez,[address] [facility], [place], [address], [place] [facility] 4 16:40:02 Vaccinatio n declined 0932045173 Active 2023 Brennon Hillman MD Attn: Julia lópez,[address] [facility], [place], [address], [facility] 4 16:40:37 Influenza vaccinatio n declined 177658950 Active 2023 Brennon Hillman MD Attn: Julia lópez,[address] [facility], [place], [address], [facility] 4 16:40:38 Pneumococc al vaccinatio n declined 954122160 Active 2023 Brennon Hillman MD Attn: Julia lópez,[address] [facility], [place], [address], [facility] 4 12:33:27 SARS-CoV-2 vaccinatio n declined 1664379983 Active 2023 Brennon Hillman MD Attn: Julia lópez,[address] [facility], [place], [address], [facility] 4 12:33:27 HIV screening declined 789270784193 100 Active 2023 Brennon Hillman MD Attn: Julia lópez,[address] [facility], [place], [address], [facility] 4 12:33:30 Nicotine dependence 67707013 Active 2023 Brennon Hillman MD Attn: Julia lópez,[address] [facility], [place], [address], [facility] 4 12:33:33 History of hepatitis C 358420375918 Active 2023 treated Brennon Hillman MD Attn: Julia lópez,[address] [facility], [place], [address], [facility] 4 12:34:18 Problem Notes None recorded. Procedures Surgical History Date Name Laterality Status Provider Name and Address Organization Details Recorded Time Heart Surgery completed Casa Vanegas MA MD - [facility] 07/04/2017 12:18:59 Imaging Results None recorded. Procedure [...] Available Not Avai lable Vitals Date Recorded Pain severity - 0-10 verbal numeric rating [Score] - Reported Provider Name and Address Organization Details Last Updated DateTime 06/24/2024 0 Lyubov Casarez MD - [facility] 06/24/2024 11:58:34 Date Recorded Body height Body mass index (BMI) Body weight Heart rate Systolic And Diastolic Provider Name and Address Organization Details Last Updated DateTime 06/24/2024 177.8 cm 25 kg/m2 92961.15 g 88 /min 132/80 mm[Hg] [facility] 06/24/2024 11:55:21 Date Recorded Body height Body mass index (BMI) Body weight Heart rate Oxygen saturation Oxygen saturation in Arterial blood by Pulse oximetry Systolic And Diastolic Provider Name and Address Organization Details Last Updated DateTime 5 177.8 cm 26.2 kg/m2 13384.6 1 g 88 /min 100 % 100 % 140/92 mm[Hg] [facility] 5 12:52:30 Date Recorded Body height Body mass index (BMI) Body weight Heart rate Oxygen saturation Oxygen saturation in Arterial blood by Pulse oximetry Systolic And Diastolic Provider Name and Address Organization Details Last Updated DateTime 5 177.8 cm 25.3 kg/m2 84259.4 1 g 100 /min 97 % 97 % 120/74 mm[Hg] [facility] 5 12:52:54 Date Recorded Body height Body mass index (BMI) Body weight Heart rate Oxygen saturation Oxygen saturation in Arterial blood by Pulse oximetry Systolic And Diastolic Provider Name and Address Organization Details Last Updated DateTime 4 177.8 cm 24.1 kg/m2 95659.4 4 g 103 /min 100 % 100 % 150/90 mm[Hg] [facility] 4 12:09:12 Date Recorded Body height Body mass index (BMI) Body weight Heart rate Oxygen saturation Oxygen saturation in Arterial blood by Pulse oximetry Systolic And Diastolic Provider Name and Address Organization Details Last Updated DateTime 4 177.8 cm 25 kg/m2 77047.8 7 g 74 /min 100 % 100 % 150/90 mm[Hg] [facility] 4 12:54:18 Social History Question Answer Notes LastModified by Organizat ion Details LastModified Time Tobacco Smoking Status Current Every Day Smoker cigarettes Casa Vanegas MA null, [facility] 07/04/2017 12:19:38 Do You Have An Advance [...] 7 Days, How Much Pain Have You [place]? None Information not available 06/24/2024 In General, [...] Past 7 Days, How Often Have You [place] Sleepy In The Daytime? Sometimes Information not [...] Functional Status Question Answer Note LastModified by [employer] ion Details LastModified Time Do you use [...] 06/24/2024 Are you able to care for yourself independently? Yes Information not available 03/27/2024 What is your exercise level? None Information not available 06/24/2024 Mental Status Question Answer Note LastModified by Organization D etails LastModified Time Do you feel stressed (tense, restless, nervous, or anxious, or unable to sleep at night)? [id number] Information not available 06/24/2024 Family History Relationship Description Onset Age of this Age Resolved Age Notes LastModified by Organization Details LastModified Time Father No current problems or disability gwardma Not available 03/27 12:10:43 Mother No current problems or disability gwardma Not available 03/27 12:10:43 Medical History Condition Response Coronary Artery Disease Y Other N High Blood Pressure Y Atrial Fibrillation N Kidney or Bladder Problems N Thyroid Problems N GI Problems Y Depression Y COPD Y Blood Clots N Have you had a mammogram in the last yea r? N Skin Problems N Anemia N Heart Attack (DE) Y Anxiety Disorder Y Diabetes N Muscle, Joint, or Bone Problems Y Seizures/Epilepsy N Have you had a colonoscopy in the last 1 0 years? N Acid Reflux (GERD) Y Cancer Y Stroke N Asthma N Allergies N Have you had a PSA blood test in the las t year? Y High Cholesterol Y Hepatitis Y Liver Disease N Headaches N Heart Failure N Osteoporosis N Immunizations Vaccine Type Date Status Note Provider Nam e and Address Organization Details Recorded Time Influenza, split virus, trivalent, PF 03/14/2016 completed Lyubov Casarez [place], [place] - [facility] 06/24/2024 09:46:54 Past Encounters Encounter ID Performer Location Encounter Start Date Encounter Closed Date Diagnosis/Indication Diagnosis SNOMED-CT Code Diagnosis ICD10 Code Diagnosis IMO Codes Diagnosis Note [id number] Miracle Bauer MD [facility] (Adult Med) [address] [place] [address] 07/04/2017 11:23:11 07/04/2017 13:49:25 Shoulder joint pain 578834303 M25.519 Neck pain 52653545 M54.2 Narcotic drug user 87715 002 F11.10 Anaphylaxis 21688956 T78 .2XXS [id number] MD Madeline Laura (Adult Med) [address] [place] [id number] 03/27/2024 11:56:20 03/27/2024 13:10:33 Essential hypertension 06302318 I10 Smoker 64706334 F17.200 Screening for malignant neoplasm of prostate 630189617 Z12.5 Coronary atherosclerosis 386592921 I25.10 Hyperlipidemia 59546004 E78.5 Colonoscopy declined 260 4565346 81992 Z53.20 Influenza vaccination declined 955340263 Z28.21 Vaccination declined 911 7090226 Z28.21 [id number] MD Madeline Laura (Adult Med) [address] [place] [phone] 05/29/2024 12:33:04 05/29/2024 13:16:21 Body mass index 25-29 - overweight 460921932 Z68.25 Overweight 510368842 E66 .3 Coronary atherosclerosis 265323404 I25.10 Essential hypertension 65008925 I10 Hyperlipidemia 51594956 E78.5 Nicotine dependence 5629 4008 F17.200 Colon canc er screening declined 9067418293 9109 Z53.20 HIV screen ing declined 2844931892 94186 Z53.20 Influenza vaccination declined 492515232 Z28.21 SARS-CoV-2 vaccination declined 2504818164 Z28.21 Pneumococc al vaccination declined 137777583 Z28.21 [id number] Brennon Hillman MD [facility] (Adult Med) [address] [place] [phone] 06/24/2024 11:49:35 06/24/2024 12:32:39 Adult health examination 692530668 Z00.00 Health Risk Assessment collected and reviewed Screening for malignant neoplasm of colon 253853313 Z12.11 [id number] Brennon Hillman MD [facility] (Adult Med) [address] [place] [phone] 07/10/2024 12:31:18 07/10/2024 13:50:24 Body mass index 25-29 - overweight 708804029 Z68.25 Overweight 041370025 E66 .3 Anaphylaxis 91143442 T78 .2XXA Coronary atherosclerosis 830468892 I25.10 Essential hypertension 84592977 I10 [id number] Brennon Hillman MD [facility] (Adult Med) [address] [place] [id number] 10/09/2024 12:35:00 10/09/2024 14:13:07 Finding of tobacco use and exposure 897806358 Z72.0 [id number] Smoker 70937602 F17.200 Overweight in adulthood with body mass index of 25 or more but less than 30 094383646 Z68.25 001356 Overweight 464703276 E66 .3 Essential hypertension 07479442 I10 Chronic ob structive pulmonary disease 16790111 J44.9 031594791 Coronary atherosclerosis 563765450 I25.10 Health Concerns Section Related Observation LastModified by Organization Detai ls LastModified Time None Recorded Concern Status LastModified by Organization Details LastModified Time None Recorded Advance Directives Directive N: Patient declined informat ion. Payers Insurance Date Sequence Insurance Name Policy Number Policy Arthur Covered Member ID Arthur Member ID Guarantor Name 10/12/[address] [facility] (MEDICARE REPLACEMENT/AD VANTAGE - PPO) [id number] Yosi Nelson [id number] Yosi Omar 06/30/[address] [facility] (MEDICARE REPLACEMENT/AD VANTAGE - HMO) [id number] Yosi Fidelina Nelson [id number] Yosi Nelson 06/30/2024 1 [place] Yosi Nelson [id number] Yosi Nelson 07/10/2024 [place] [facility] Yosi Nelson [id number] Yosi Nelson 11/03/2024 2 [place] WHEN MEDICARE OR MEDICARE REPLACEMENT PRIMARY) Yosi Nelson [id number] Yosi Nelson Notes Date Note Type Note Provider Name and Address Organization Details Recorded Time 03/27/2024 text/html 63-year-old with history of DE says that he has 2 stents remote [...] Hillman MD Attn: [address] [place], [address], [facility] 03/27/2024 16:41:03 05/29/2024 text/html so Noble pretty [...] Hillman MD Attn: [address] [place], [address], [facility] 05/30/2024 12:34:41 06/24/2024 text/html MAW 2Reported by PatientSocial/Behavi oral HistoryFor fracture risk, patient reportshistory of fracturesbut reportsno sudden unexplained fractures. For diet and nutrition, patient reportshealthy diet.Mental Status:For concentration and memory, patient reportsno decreased concentrating ability,no memory lapses or loss, anddoes not forget words. For speech/motor difficulties, patient reportsno speech difficulties,no difficulty expressing formulated concepts,no difficulty with fine manipulative tasks,no difficulty writing/copying,no slowed reaction time, anddoes not knock things over when trying to pick them up.Functional AbilityFor vision, patient reportsworse near (reading glasses). For home safety, patient reportsdoes not have hand bars in the bathroom/showerbut reportsno unsafe larry hazzards,no unsafe stairs,working smoke/co detectors,practicing 'safer sex',no fire arms,good lighting in the home, andreviewed sun protection. For hearing, patient reportsno loss of hearing. For activities of daily living, patient reportsable to bathe with limited or no assistance,able to contol urination and bowels,able to dress with limited or no assistance,able to feed self with limited or no assistance,able to get out of chair or bed with limited or no assistance,able to groom with limited or no assistance, andable to toilet with limited or no assistance. For instrumental activities of daily living, patient reportsable to do house work with limited or no assistance,able to grocery shop with limited or no assistance,able to manage medications with limited or no assistance,able to manage money with limited or no assistance,able to prepare meals with limited or no assistance, andable to use the phone with limited or no assistance. For falls risk assessment, patient reportsno frequent falls while walking,no fall in the past year,no fall since last visit, andno dizziness/vertigo. Brennon Hillman MD Attn: [address] [place], [address], [facility] 06/28/2024 21:36:31 07/10/2024 text/html hypertension did not start the medication dyslipidemia did not start the medication states that he is worried that he is going to have another anaphylaxis episode still smoking Brennon Hillman MD Attn: [address] [facility], [place], [address], [facility] 07/11/2024 16:50:06 10/09/2024 text/html Still smoking some cough at time to time did not get his lung scan done really did not even follow up with Urology like he was supposed to states that admittedly he does not answer his phone that much Brennon Hillman MD Attn: [address] , [place], [address], [facility] 10/09/2024 16:01:06
[2025-04-22] MEDS: ASPIRIN 81 MG ENTERIC TABLET PO (17:33)
--- NOTE | 2025-04-22 18:03 | P.CONONC_ITS ---
Assessment and Plan Assessment and plan (1) Prostate cancer: Code(s): C61 - Malignant neoplasm of prostate Status: Acute Assessment and Plan: Recent diagnosis of prostate cancer [address] Mc[address]ally at [facility]. Patient was planning to start androgen deprivation therapy. CT scan finding showed pulmonary nodules and mediastinal lymphadenopathy consistent with metastatic cancer. I will order PSA. He will follow-up with Dr. Mcnally for further management of metastatic prostate cancer. (2) Anemia: Qualifiers: Anemia type: unspecified type Qualified Code(s): D64.9 - Anemia, unspecified Code(s): D64.9 - Anemia, unspecified Status: Acute Assessment and Plan: Hemoccult stool was positive and GI recommended outpatient colonoscopy. Labs showed iron deficiency anemia and slightly elevated LDH and low B12. I will give him B12 injection and IV iron infusion. He will follow-up with us as an outpatient and will continue oral iron 65 mg twice a day upon discharge. He will also follow-up with GI for evaluation. HPI Data of Consult Date/Time: 04/22/25 18:03 Requesting Physician: Juanita Hancock MD Primary Care Provider: Zafar HillmanMD Consult Narrative Narrative: Yosi Nelson is a 64 year old male with recent diagnosis of prostate cancer [address] Mcnally at [facility]. Plan was to start oral androgen deprivation therapy. Patient came into the hospital with generalized weakness along with shortness of breath for 2 days duration. He was also reporting right lower extremity swelling. A Doppler studies showed no evidence of DVT. CTA chest done showed no pulmonary embolism but pulmonary nodules within the upper lungs bilaterally and enlarged mediastinal lymphadenopathy. Labs showed hemoglobin of 9.4. He denies any bleeding including melena and hematochezia. Hemoccult stool was positive. Echocardiogram showed EF of 10-20% with global hypokinesis. Patient was started on diuretics for congestive heart failure. GI service was consulted and recommended outpatient colonoscopy for Hemoccult-positive stool. He denies any bone pain. Review of Systems 2 Review of Systems: Twelve point review of system was reviewed [facility] Past Medical History Medical History (Updated 04/22/25 @ 14:54 by Shital Rasmussen APRN) Hepatitis C Testicular cancer Prostate cancer CAD (coronary artery disease) COPD (chronic obstructive pulmonary disease) Surgical History Surgical History History of orchiectomy Hx of cholecystectomy 2009 History of coronary artery stent placement 2 stents Family History Family History Other No significant family history Social History Social History (Updated 04/21/25 @ 20:05 by Niki Benz APRN) Social History: He lives home alone and is . he has 2 sons. 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 code status : full code Smoking packs per day: 1 Smoking cigarettes per day: 20.0 Years smoked: 55 Smoking pack-years: 55.00 Smoking status: Current every day smoker Tobacco type: cigarettes Alcohol intake: current Drinks per week: 4 Substance use: current Substance use type: marijuana, crack/cocaine and amphetamines Other substance usage details: few x per week Last use: 04/21/25 Lack of Transportation: YES Lack of Food: Sometimes True Current Housing: I Have Housing Concerned About Future Housing: No Difficulty Paying Gas/Electric Bills: YES Difficulty Paying for Meds: No Currently Unemployed: No Education: Grade School Difficulty w/ Childcare or Family Care: No Living arrangements: alone Spiritual care concerns: No Meds Home Medications and Allergies Home Medications ?Medication ?Instructions ?Recorded ?Confirmed ?Type [id number] 250 1 tablet PO PRN hea dache 11/05/24 04/21/25 History mg-250 mg-65 mg tablet (Excedrin Migraine) Allergies Allergy/AdvReac Type Severity Reaction Status Date / Time No Known Allergies Allergy Mild Verified 04/21/25 22:30 Vital Signs Vital Signs - 24 hr 04/21/25 18:43 04/21/25 18:57 04/21/25 19:03 Temperature Pulse Rate 103 H 105 H 96 Respiratory Rate 20 22 H 25 H Blood Pressure 138/98 H 133/88 Pulse Oximetry 93 93 Oxygen Delivery 04/21/25 19:12 04/21/25 22:19 04/21/25 22:20 Temperature 36.4 C Pulse Rate 99 100 Respiratory Rate 22 H 16 Blood Pressure 118/82 Pulse Oximetry 95 Oxygen Delivery Room Air 04/21/25 23:27 04/22/25 00:00 04/22/25 02:20 Temperature 36.7 C Pulse Rate 90 105 H 94 Respiratory Rate 16 22 H Blood Pressure 121/79 Pulse Oximetry 96 Oxygen Delivery 04/22/25 02:24 04/22/25 04:00 04/22/25 04:59 Temperature 36.5 C Pulse Rate 84 88 97 Respiratory Rate 22 H 16 Blood Pressure 135/83 Pulse Oximetry 97 Oxygen Delivery 04/22/25 08:00 04/22/25 08:00 04/22/25 08:20 Temperature 36.5 C Pulse Rate 96 87 86 Respiratory Rate 16 24 H Blood Pressure 132/80 Pulse Oximetry 96 Oxygen Delivery 04/22/25 08:22 04/22/25 08:30 04/22/25 08:38 Temperature Pulse Rate 90 Respiratory Rate 24 H Blood Pressure Pulse Oximetry 96 Oxygen Delivery Room Air Room Air 04/22/25 12:00 04/22/25 12:00 04/22/25 14:07 Temperature 36.5 C Pulse Rate 100 91 92 Respiratory Rate 16 20 Blood Pressure 132/76 Pulse Oximetry 97 Oxygen Delivery 04/22/25 14:19 Temperature Pulse Rate 90 Respiratory Rate 20 Blood Pressure Pulse Oximetry Oxygen Delivery Exam 2 Narrative: Lungs are clear to auscultation bilaterally Cardiovascular regular rate rhythm no murmurs Abdomen soft nontender nondistended Extremities edema noted Results Labs 04/22/25 12:25 04/22/25 05:21 Labs: Short CBC 04/21/25 04/22/25 04/22/25 Range/Units 19:21 00:26 05:21 WBC 9.6 (4.5-10.0) K/mm3 Hgb 9.8 L 9.2 L 9.4 L (14.0-18.0) g/dL Hct 32.2 L 30.3 L 31.2 L (42.0-52.0) % Plt Count 355 (150-375) k/mm3 04/22/25 Range/Units 12:25 WBC (4.5-10.0) K/mm3 Hgb 10.3 L (14.0-18.0) g/dL Hct 34.4 L (42.0-52.0) % Plt Count (150-375) k/mm3 BMP 04/22/25 05:21 Sodium 131 L Potassium 4.2 Chloride 102 Carbon Dioxide 25 BUN 16 Creatinine 0.90 Glucose 98 Calcium 8.0 L Liver Function 04/21/25 04/21/25 Range/Units 19:21 19:21 Total Bilirubin 0.5 Cancelled (0.2-1.3) mg/dL
[2025-04-22] MEDS: CYANOCOBALAMIN INJ 1,000 MCG/ML VIAL 1000 MCG IM (19:00)
[2025-04-22] MEDS: IRON SUCROSE COMPLEX 400 MG, IRON SUCROSE COMPLEX 100 MG in SODIUM CHLORIDE 0.9% IV 250 ML 78.57 MG IVPB (20:25)
--- NOTE | 2025-04-22 20:45 | P.CONPL_ITS ---
Assessment and Plan Assessment and plan (1) Lung nodule, solitary: Code(s): R91.1 - Solitary pulmonary nodule Status: Acute Assessment and Plan: He is 1.4 cm left lung nodule, chest CT 04/21/2025; has additional pulmonary nodules within the upper lungs bilaterally and enlarged mediastinal lymphadenopathy The left 1.4 cm nodule did not appear on his PET scan 01/07/2025. He has prostate cancer, has not started treatment yet. His doctor is at [facility], rradiologist recommended another PET scan. This nodule does not need biopsy this admission. (2) COPD (chronic obstructive pulmonary disease): Code(s): J44.9 - Chronic obstructive pulmonary disease, unspecified Status: Acute Assessment and Plan: He has centrilobular emphysema radiographically, needs outpatient pulmonary function testing. No testing in our system. We can order this after he has an office visit, will plan 6 weeks or so from now when he is stable. Will add Trelegy 1 puff per day, triple inhaler for controller therapy of COPD. He can continue albuterol p.r.n. shortness of breath. He is currently using his albuterol inhaler 3 or more times a week at home, on no controller medication (3) Tobacco abuse: Code(s): Z72.0 - Tobacco use Status: Acute Assessment and Plan: Patient says he has smoked tobacco about 50 years, a pack per day, also smokes marijuana regularly. No vaping. He is open to tobacco cessation. I discussed using Wellbutrin to help with decreasing tobacco craving. This can be started while the patient is still smoking. He may also benefit from having other therapy such as nicotine replacement therapy, and he may benefit by tobacco cessation information prior to discharge. Will start after his catheterization. Plan plan: 1. Add controller medication for COPD. Trelegy ONE puff a day, rinse and spit after use. Continue short acting albuterol p.r.n. shortness of breath. 2. We can follow him in the clinic if he wants to be seen. 3. He says that he does not have a primary care doctor, however he as seen Dr. Zafar Hillman, [facility], and I encouraged him to maintain Dr. Hillman as his primary. 4. We talked about tobacco cessation, he is open to information about staying off cigarettes after he is discharged He may benefit from bupropion /Wellbutrin 150 mg a day x 3 days while he is still smoking, increased to 150 mg b.i.d. continuously as he sets a quit date and stops smoking. 5. Left 1.4 cm lung nodule. He has prostate cancer, he had a PET scan in January 07, 2025, this nodule was not seen on the PET scan. History of Present Illness History of Present Illness Consult date: 04/22/25 Chief complaint: Acute CHF,anemia Narrative: pt was seen Apr 22, 2025 at 20:40 Room 242 NEW: Yosi Nelson is a 64-year-old man with 21 mm pulmonary nodule. He was admitted with shortness of breath. He is a cigarette smoker, about a pack per day, also smokes marijuana and says he smokes other things when he has availability. I do not know what else he smokes. He does not vape. He does not have recurrent respiratory infections. His only COPD medication is an albuterol inhaler which she uses a few times per week. CTA shows no pulmonary embolus. It shows a 1 point 3 3 cm pulmonary nodule in the left upper lobe with atelectasis in the lung bases. He has small bilateral effusions. He has central lobular emphysema and enlarged mediastinal lymph nodes up to 1.9 cm in the short axis dimension. He was diagnosed with prostate cancer 3 months ago, sees Dr. Mcnally at [facility]. CT scan finding showed pulmonary nodules and mediastinal lymphadenopathy consistent with metastatic cancer. Dr West notes that he has anemia with heme + stool. He is scheduled for cardiac catheterization tomorrow to rule out ischemic cardiomyopathy, had a couple of stents about 20 years ago. His BNP is elevated 9180, echocardiogram shows severely reduced systolic function in range of 10-20% and global hypokinesis, appears to have acute systolic heart failure. DATA * 04/22/25; echo; Ejection fraction of 10-20% left ventricle is mildly dilated. Right ventricle is of normal size and shows normal systolic function. There is biatrial enlargement. * 04/21/2025; chest CT : There is no pulmonary embolism, aortic dissection, thoracic aneurysm or pericardial fluid. Heart is enlarged. An 11 x 21 mm pulmonary nodule within the right upper lobe. There is a 1.4 mm pulmonary nodule within the left upper lobe. There are atelectasis at the lung bases. Small bilateral pleural effusions are noted. There is scarring within the right middle lobe. There are centrilobular emphysema. Enlarged mediastinal lymph nodes measuring up to 1.9 cm in short axis dimension. Limited evaluation of the upper abdomen demonstrates no gross abnormalities. Review of bone windows demonstrates no osteoblastic or lytic lesions. IMPRESSION: There is no pulmonary embolism, aortic dissection, pericardial fluid or thoracic aneurysm. Pulmonary nodules within the upper lungs bilaterally measuring up to 21 mm. There are enlarged mediastinal lymph nodes measuring up to 1.9 cm in short axis dimension. Malignancy cannot be excluded. Follow-up PET/CT is recommended. * 04/21/2025. venous dopplers negative for DVT * 04/21/2025, BNP elevated 9180 White blood cell count 9.6, hemoglobin 9.4, hematocrit 31.2%, platelets 442002 sodium 131 potassium 4.2 chloride 102 carbon dioxide 25 BUN 16 creatinine 0.9 glucose 98. Iron is low, 30. Ferritin is low. LDH 274 elevated * 01/07/2025; PET scan; Large region of marked increased asymmetric activity at the left side of the prostate consistent with primary prostate cancer. 2. Single mildly suspicious focus of increased uptake in the left obturator region most likely related to urine activity in the left ureter but could not exclude an early metastatic lymph node. No other lesions suspicious for metastatic disease. Review of Systems 2 Review of Systems: He coughs daily, he is thinking about stopping smoking however things that he probably will smoke when he goes back home. All systems reviewed & are unremarkable except as noted in HPI and below PMFSH Past Medical History Medical History (Updated 04/22/25 @ 21:34 by Anna Dumont MD) Hepatitis C Testicular cancer 2005 Prostate cancer CAD (coronary artery disease) COPD (chronic obstructive pulmonary disease) Surgical History Surgical History History of orchiectomy Hx of cholecystectomy 2009 History of coronary artery stent placement 2 stents Family History Family History Other No significant family history Social History Social History (Updated 04/21/25 @ 20:05 by Niki Benz APRN) Social History: He lives home alone and is . he has 2 sons. 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 code status : full code Smoking packs per day: 1 Smoking cigarettes per day: 20.0 Years smoked: 55 Smoking pack-years: 55.00 Smoking status: Current every day smoker Tobacco type: cigarettes Alcohol intake: current Drinks per week: 4 Substance use: current Substance use type: marijuana, crack/cocaine and amphetamines Other substance usage details: few x per week Last use: 04/21/25 Lack of Transportation: YES Lack of Food: Sometimes True Current Housing: I Have Housing Concerned About Future Housing: No Difficulty Paying Gas/Electric Bills: YES Difficulty Paying for Meds: No Currently Unemployed: No Education: Grade School Difficulty w/ Childcare or Family Care: No Living arrangements: alone Spiritual care concerns: No Meds Home Medications and Allergies Home Medications ?Medication ?Instructions ?Recorded ?Confirmed ?Type [id number] 250 1 tablet PO PRN hea dache 11/05/24 04/21/25 History mg-250 mg-65 mg tablet (Excedrin Migraine) Allergies Allergy/AdvReac Type Severity Reaction Status Date / Time No Known Allergies Allergy Mild Verified 04/21/25 22:30 Vital Signs Vital Signs - 24 hr 04/21/25 22:19 04/21/25 22:20 04/21/25 23:27 Temperature 36.4 C 36.7 C Pulse Rate 100 90 Respiratory Rate 16 16 Blood Pressure 118/82 121/79 Pulse Oximetry 95 96 Oxygen Delivery Room Air 04/22/25 00:00 04/22/25 02:20 04/22/25 02:24 Temperature Pulse Rate 105 H 94 84 Respiratory Rate 22 H 22 H Blood Pressure Pulse Oximetry Oxygen Delivery 04/22/25 04:00 04/22/25 04:59 04/22/25 08:00 Temperature 36.5 C 36.5 C Pulse Rate 88 97 96 Respiratory Rate 16 16 Blood Pressure 135/83 132/80 Pulse Oximetry 97 96 Oxygen Delivery 04/22/25 08:00 04/22/25 08:20 04/22/25 08:22 Temperature Pulse Rate 87 86 Respiratory Rate 24 H Blood Pressure Pulse Oximetry 96 Oxygen Delivery Room Air 04/22/25 08:30 04/22/25 08:38 04/22/25 12:00 Temperature Pulse Rate 90 100 Respiratory Rate 24 H Blood Pressure Pulse Oximetry Oxygen Delivery Room Air 04/22/25 12:00 04/22/25 14:07 04/22/25 14:19 Temperature 36.5 C Pulse Rate 91 92 90 Respiratory Rate 16 20 20 Blood Pressure 132/76 Pulse Oximetry 97 Oxygen Delivery 04/22/25 16:00 04/22/25 20:33 Temperature 36.7 C Pulse Rate 96 67 Respiratory Rate 16 Blood Pressure 125/81 Pulse Oximetry 93 Oxygen Delivery Exam 2 Narrative: GEN: Alert, oriented, not in distress. He is sitting up on the side of the bed hunched over. He is on room air. HEENT: pupils are equal, EOMI, symmetrical face; oral membranes moist, edentulous. NECK: Trachea is midline CHEST: Equal air entry, hyperinflated thorax, symmetric excursion, harsh cough with scattered rhonchi. No wheezing. CV: Regular S1S2 no m/g/r Extremities : no clubbing or cyanosis, 3+ edema. No calf tenderness. PSYCH: normal thought and speech, gait is not tested. Results Laboratory Findings 04/22/25 12:25 04/22/25 05:21 ABG, PT/INR, D-dimer: PT/INR, D-dimer PT 15.6 Seconds (11.1-14.7) H 04/21/25 16:04 INR 1.2 04/21/25 16:04 Abnormal lab findings: Abnormal Labs 04/21/25 04/21/25 04/22/25 16:04 19:21 00:26 RBC 4.03 L Hgb 9.4 L 9.8 L 9.2 L Hct 31.3 L 32.2 L 30.3 L MCV 77.7 L MCH 23.3 L MCHC 30.0 L RDW 18.8 H Immature Gran % (Auto) 0.7 H Orange % (Auto) 10.7 H Orange # (Auto) 1.0 H Abs Immat Gran (auto) 0.06 H Absolute Retic 0.12 H Immature Retic Fraction 26.8 H Retic Hgb Content 22.6 L PT 15.6 H Sodium 131 L BUN 21 H Glucose 130 H Calcium 7.9 L Iron 30 L % Saturation 7 L Lactate Dehydrogenase 274 H NT-Pro-B Natriuret Pep 9180 H 04/22/25 04/22/25 05:21 12:25 RBC 4.00 L Hgb 9.4 L 10.3 L Hct 31.2 L 34.4 L MCV 78.0 L MCH 23.5 L MCHC 30.1 L RDW 18.7 H Immature Gran % (Auto) Orange % (Auto) Orange # (Auto) Abs Immat Gran (auto) Absolute Retic Immature Retic Fraction Retic Hgb Content PT Sodium 131 L BUN Glucose Calcium 8.0 L Iron % Saturation Lactate Dehydrogenase NT-Pro-B Natriuret Pep
[2025-04-22 21:11] LABS: Prostate Specific Antigen 16.7 ng/mL (< OR = 4.0)
[2025-04-23] VITALS (10 sets, daily range): BP systolic 105–128; BP diastolic 65–81; PULSE 87–100; RESP 16–20; TEMP 36.5; O2SAT 90–94; BMI 24.2
[2025-04-23] MEDS: ALBUTEROL SULFATE NEB 2.5 MG/3 ML INH INHALATION (04:04)
[2025-04-23 05:22] LABS: Hematocrit 33.3 % (42.0-52.0); Hemoglobin 9.9 g/dL (14.0-18.0); Mean Corpuscular HGB Conc 29.7 g/dl (32-36); Mean Corpuscular Hemoglobin 23.1 pg (26-34); Mean Corpuscular Volume 77.8 fl (80-100); Platelet Count Result 392 k/mm3 (150-375); Red Blood Count 4.28 M/mm3 (4.6-6.20); White Blood Count 11.0 K/mm3 (4.5-10.0)
[2025-04-23 05:44] LABS: Alanine Aminotransferase 31 U/L (6-50); Albumin Level 3.5 g/dL (3.5-5.1); Alkaline Phosphatase 145 U/L (38-126); Anion Gap 5 mmol/L (4-12); Aspartate Amino Transferase 49 U/L (17-59); Bilirubin,Total 0.5 mg/dL (0.2-1.3); Blood Urea Nitrogen 16 mg/dL (9-20); Calcium 8.1 mg/dL (8.4-10.2); Carbon Dioxide 27 mmol/L (22-30); Chloride 100 mmol/L (98-107); Estimated CRCL calculation 74 ml/min; Estimated Glomerular Filt Rate > 60; Glucose 97 mg/dL (65-110); Magnesium 2.0 mg/dL (1.6-2.3); Potassium 3.8 mmol/L (3.4-5.0); Sodium 132 mmol/L (137-145); Total Protein 7.1 g/dL (6.3-8.2)
[2025-04-23] MEDS: FLUTICASONE/UMECLIDIN/VILANTER 100-62.5-25 MCG ELLIPTA 1 PUFF INHALATION (07:53)
[2025-04-23] MEDS: METOPROLOL SUCCINATE EXT REL 25 MG TABCR PO (10:21)
[2025-04-23] MEDS: ASPIRIN 81 MG ENTERIC TABLET PO (10:22)
[2025-04-23] MEDS: PANTOPRAZOLE SODIUM IV 40 MG VIAL IV PUSH (10:22)
--- NOTE | 2025-04-23 13:01 | PM.PNCARD ---
Progress Note: A&P Assessment and Plan (1) CHF exacerbation: Qualifiers: Heart failure type: unspecified Qualified Code(s): I50.9 - Heart failure, unspecified Code(s): I50.9 - Heart failure, unspecified Status: Acute (2) Cardiomyopathy: Code(s): I42.9 - Cardiomyopathy, unspecified Status: Acute (3) Bilateral pleural effusion: Code(s): J90 - Pleural effusion, not elsewhere classified Status: Acute (4) Prostate cancer: Code(s): C61 - Malignant neoplasm of prostate Status: Acute Plan Impression: 1. Patient markedly increased a BNP and shortness of breath likely suggest congestive heart failure. Echocardiogram shows severely reduced systolic function in range of 10-20% and global hypokinesis. Rule out ischemic cardiomyopathy is recommended Patient likely has acute systolic heart failure. 2. Known history of coronary disease with the PTCA x2 in 2004. report is not available Current EKG shows right bundle-branch block with left axis deviation and ischemic appearing T changes in anteroseptal leads. 3. Recent diagnosis of metastatic prostate CA. 4. History of anemia status post colonoscopy in October of 2024. Couple of small adenomatous polyps were noted and where removed. 5. Normal bilateral ankle brachial index. Negative CT scan of the chest for any pulmonary embolism or aortic dissection 6. Echocardiogram performed today shows ejection fraction of 10-20% left ventricle is mildly dilated. Right ventricle is of normal size and shows normal systolic function. There is biatrial enlargement. Recommendation: -He has been started on GDMT with lisinopril 5mg daily and Metoprolol 25mg daily, will increase Toprol XL to 50 mg daily and continue to uptitrate meds on OP basis -will change lasix to 40 mg PO daily -[facility] recommended to r/o ischemic CMP in setting of previous PTCA in 2004, patient wishes for OP f/u -will place lifevest to prevent SCD -will need close OP follow up Subjective Date/time seen: 04/23/25 13:01 Interval history: Date of Service 04/23/25: Patient is sitting up in chair. He is feeling well. He wants to go home. We discussed his new cardiomyopathy and need for ischemic evaluation. Cardiac cath cannot be done today d/t schedule and he does not wish to stay until Saturday. We discussed risk for SCD and he voiced understanding. He wishes for GDMT for CHF and lifevest. No reports of chest pain or SOB at this time. Review of Systems Review of Systems: All systems reviewed & are unremarkable except as noted in HPI and below Exam Narrative: Patient was examined at the bedside. Patient appears to be chronically ill but not in acute distress. Head and neck examination is unremarkable. Neck is supple. There is no JVD or carotid bruit. Thyroid enlargement Lungs are clear auscultation and percussion . Heart sounds reveal normal S1-S2 regular Abdomen is soft and nontender. There is no hepatosplenomegaly probable sounds present throughout Extremities reveal no pedal edema. Objective Data Vital Signs Vital Signs: Vital Signs - 24 hr 04/22/25 14:07 04/22/25 14:19 04/22/25 16:00 Temperature Pulse Rate 92 90 96 Respiratory Rate 20 20 Blood Pressure Pulse Oximetry Oxygen Delivery 04/22/25 20:00 04/22/25 20:00 04/22/25 20:33 Temperature 36.7 C Pulse Rate 110 H 67 Respiratory Rate 16 Blood Pressure 125/81 Pulse Oximetry 93 Oxygen Delivery Room Air 04/22/25 21:42 04/23/25 00:00 04/23/25 04:00 Temperature Pulse Rate 97 98 Respiratory Rate Blood Pressure Pulse Oximetry 93 Oxygen Delivery Room Air 04/23/25 04:05 04/23/25 04:10 04/23/25 05:31 Temperature 36.5 C Pulse Rate 89 88 94 Respiratory Rate 20 20 16 Blood Pressure 128/81 Pulse Oximetry 92 Oxygen Delivery 04/23/25 07:55 04/23/25 08:35 04/23/25 10:21 Temperature Pulse Rate 97 Respiratory Rate Blood Pressure Pulse Oximetry 90 Oxygen Delivery Room Air Room Air Intake/Output Intake/Output: Intake & Output 04/20/25 04/21/25 04/22/25 04/23/25 23:59 23:59 23:59 23:59 Intake Total 1062 300 Output Total 250 Balance 812 300 Meds/Results Medications: Active Medications Generic Name Dose Route Start Last Admin Trade Name Freq PRN Reason Stop Dose Admin Albuterol 2.5 mg 04/23/25 03:47 04/23/25 04:04 Albuterol Sulfate Neb 2.5 Mg/3 Ml Inh INHALATION 2.5 mg Q4HRT PRN Administration Shortness Of Breath Aspirin 81 mg 04/22/25 17:00 04/23/25 10:22 Aspirin 81 Mg Enteric Tablet PO 81 mg BID RAIZA Administration Enoxaparin Sodium 40 mg 04/23/25 09:00 04/23/25 10:17 Enoxaparin 40 Mg/0.4 Ml Syringe SUB-Q Not Given DAILY RAIZA Fluticasone/Umeclidinium/Vilanterol 1 puff 04/23/25 08:00 04/23/25 07:53 Fluticasone/Umeclidin/Vilanter 100-62.5-25 Mcg Ellipta INHALATION 1 puff DAILYRT RAIZA Administration Furosemide 40 mg 04/22/25 09:00 04/23/25 10:18 Furosemide Inj 40 Mg/4 Ml Vial IV PUSH Not Given DAILY ARIZA Lisinopril 5 mg 04/23/25 09:00 04/23/25 10:22 Lisinopril 5 Mg Tablet PO 5 mg QAM RAIZA Administration Metoprolol Succinate 25 mg 04/23/25 09:00 04/23/25 10:21 Metoprolol Succinate Ext Rel 25 Mg Tabcr PO 25 mg QAM RAIZA Administration Pantoprazole Sodium 40 mg 04/21/25 21:00 04/23/25 10:22 Pantoprazole Sodium Iv 40 Mg Vial IV PUSH 40 mg Q12HR RAIZA Administration Perflutren Lipid Microsphere 0 ml 04/21/25 19:49 Perflutren Lipid Microspheres 1.5 Ml Vial Diluted To 10 Ml Total Volume IV PUSH 04/24/25 19:50 ONCE PRN adequate visualization Protocol Radiology Results: ITS Impressions Chest/Abdomen/Pelvis CTA 04/21/25 17:10 IMPRESSION: There is no pulmonary embolism, aortic dissection, pericardial fluid or thoracic aneurysm. Pulmonary nodules within the upper lungs bilaterally measuring up to 21 mm. There are enlarged mediastinal lymph nodes measuring up to 1.9 cm in short axis dimension. Malignancy cannot be excluded. Follow-up PET/CT is recommended. CTA chest PE abdomen pel INDICATION:sob, le edema, prostate cancer, dark stools . COMPARISON: None. TECHNIQUE: Axial images of the abdomen and pelvis were obtained following infusion of 100 mL Isovue 370. Dose optimization technique was utilized. FINDINGS: The lung bases are clear. The liver parenchyma is unremarkable. No intrahepatic mass or ductal dilatation is evident. The gallbladder is unremarkable. The pancreas and spleen are normal in appearance. The adrenal glands are symmetric in size. The kidneys demonstrate symmetric uptake and excretion of contrast. No cystic mass is evident. There is no solid mass. There is no hydronephrosis. The bladder and rectum are normal. No free intraperitoneal fluid or air is evident. There is no significant retroperitoneal lymphadenopathy. The aorta, visceral vessels and renal arteries demonstrate normal caliber and patency. The lower thoracic and lumbar vertebrae are in normal alignment. IMPRESSION: No acute abnormality is noted in the abdomen and pelvis. All CT scans at this facility are performed using low dose modulation techniques as appropriate to perform exam including the following: automated exposure control; use of iterative reconstruction technique; adjustment of the mA and/or kV according to patient size (this includes techniques or standardized protocols for targeted exams where dose is matched to indication/reason for exam). Venous Doppler Study 04/21/25 17:33 IMPRESSION: No acute findings. Ankle Brachial Index 04/22/25 11:40 IMPRESSION: Both ABIs are within normal limits. There is slight diminution of the left great toe index of 0.67. Labs Labs: Laboratory Results - last 24 hr 04/22/25 04/22/25 04/23/25 05:16 05:21 04:29 WBC 11.0 H RBC 4.28 L Hgb 9.9 L Hct 33.3 L MCV 77.8 L MCH 23.1 L MCHC 29.7 L RDW 18.6 H Plt Count 392 H MPV 11.1 H Haptoglobin 133 Sodium 132 L Potassium 3.8 Chloride 100 Carbon Dioxide 27 Anion Gap 5 BUN 16 Creatinine 0.91 Estim Creat Clear Calc 74 Estimated GFR > 60 Glucose 97 Calcium 8.1 L Magnesium 2.0 Total Bilirubin 0.5 AST 49 ALT 31 Alkaline Phosphatase 145 H Total Protein 7.1 Albumin 3.5 Prostate Specific Ag 16.7 H
--- NOTE | 2025-04-23 13:29 | P.PNIM_ITS ---
Progress Note: A&P Assessment and Plan (1) CHF exacerbation: Qualifiers: Heart failure type: unspecified Qualified Code(s): I50.9 - Heart failure, unspecified Code(s): I50.9 - Heart failure, unspecified Status: Acute Assessment and Plan: The patient has a previous history of coronary artery disease with 2 stents. He believes the 2 stents were placed in 1999. CT chest showing cardiomegaly and 2+ 3+ pitting edema BLE * Cardiology consult * GDMT with lisinopril 5mg daily and Metoprolol 25mg daily, will increase Toprol XL to 50 mg daily and continue to uptitrate meds on OP basis * Echocardiogram:left ventricle mildly dilated and severely reduced systolic function with severe eccentric left ventricular hypertrophy and EF of 10-20% with global hypokinesis. * IV p.o. Lasix daily transition to oral Lasix 40mg daily * Lifevest ordered * Daily weights * Strict I&Os * Patient plans for [facility] outpatient for further evaluation of possible ischemic cardiomyopathy (2) Anemia: Qualifiers: Anemia type: unspecified type Qualified Code(s): D64.9 - Anemia, unspecified Code(s): D64.9 - Anemia, unspecified Status: Acute Assessment and Plan: The patient stated that he had dark stools and that his primary care doctor kait distal was found to be positive. The patient has no over GIB likely secondary to metastatic cancer and poor appetite. his H&H is currently 9.8 in 32.9. We have no recent labs for comparison. * Hematology-Oncology have been consulted and their evaluation greatly be appreciated. * anemia panel has been initiated. * check stool for occult blood. * IV Protonix have been initiated. * trend H&H transfuse if Hgb <7.0 (3) GI bleed: Code(s): K92.2 - Gastrointestinal hemorrhage, unspecified Status: Acute Assessment and Plan: See Above * GI was consulted and recommended outpatient colonoscopy (4) Prostate cancer: Code(s): C61 - Malignant neoplasm of prostate Status: Acute Assessment and Plan: The patient has an oncologist and stated that he has not started treatment yet. He did have a PET scan back in December of this year. . Large region of marked increased asymmetric activity at the left side of the prostate consistent with primary prostate cancer. CT imaging showing single mildly suspicious focus of increased uptake in the left obturator region most likely related to urine activity in the left ureter but could not exclude an early metastatic lymph node. No other lesions suspicious for metastatic disease. The patient had a previous history of testicular cancer and had an orchiectomy. * oncology hematology has been consulted. * according to his CT scan is a 21 mm pulmonary nodule and pulmonary has been consulted for further recommendation. * Small bilateral pleural effusion or could be causing shortness of breath improve with lasix (5) Bilateral pleural effusion: Code(s): J90 - Pleural effusion, not elsewhere classified Status: Acute Assessment and Plan: CT showing bilateral small pleural effusions, CHF vs metastatic cancer for likely cause * BP 40 mg Lasix daily * Incentive spirometer * Pulmonary was consulted for further evaluation upper lobe nodules (6) Tobacco abuse: Code(s): Z72.0 - Tobacco use Status: Acute Assessment and Plan: * Smoking cessation provided * Declined nicotine patch Plan Code status: Full code per patient DVT prophylaxis: SCDs Stress ulcer prophylaxis: Protonix 40 b.i.d. PT/OT notes: Ambulatory Disposition: Patient continues admission waiting in [facility] plan for O/P [facility] and will follow-up with his oncologist at [facility]. Time Spent With Patient Time with patient: 15 - 25 minutes Subjective Date/time seen: 04/23/25 13:29 Interval history: Patient is a 64-year-old male admitted for further evaluation anemia shortness of breath, bilateral pleural effusions, and possible new onset heart failure. 04/23/2025: Patient up in chair mildly anxious plan was for cardiac cath today but unable to have done until Saturday04/26/2025 to evaluate for ischemic cardiomyopathy. Patient denies any chest pain or shortness of breath spoke with Cardiology at this time patient wishes to discharge home and follow-up outpatient for C. Patient initiated on GDMT and lysis has been ordered by Cardiology to prevent SCD patient was made aware the risks and still prefers to discharge home once LifeVest is arrived. Review of Systems Review of Systems: All systems reviewed & are unremarkable except as noted in HPI and below Exam Const: General: comfortable and no acute distress Other: Pleasant male in no acute distress HENMT: Mouth: Yes moist mucous membranes Eyes: General: appearance normal, both eyes and all related structures Sclera: sclerae normal Pupils: Equal, round and reactive pupils present Neck: Neck: supple and no JVD Resp: Auscultation: wheezes scattered wheezes and diminished lung sounds bilateral Cardio: Rate: regular rate Rhythm: regular rhythm GI: Auscultation: normal bowel sounds Skin: General skin exam: normal color and no rashes or lesions noted Wounds: no wounds Neuro: General: gait normal Cranial nerves: Yes Equal, round and reactive pupils present Speech: normal speech Motor exam (neuro): 5/5 motor strength present throughout Sensory Exam: normal sensation Extrem: General: edema (2+ to 3+ BLE) bilateral Psych: Mental Status: mental status grossly normal Affect: normal affect Objective Data Vital Signs Vital Signs: Vital Signs - 24 hr 04/22/25 14:07 04/22/25 14:19 04/22/25 16:00 Temperature Pulse Rate 92 90 96 Respiratory Rate 20 20 Blood Pressure Pulse Oximetry Oxygen Delivery 04/22/25 20:00 04/22/25 20:00 04/22/25 20:33 Temperature 98.1 F Pulse Rate 110 H 67 Respiratory Rate 16 Blood Pressure 125/81 Pulse Oximetry 93 Oxygen Delivery Room Air 04/22/25 21:42 04/23/25 00:00 04/23/25 04:00 Temperature Pulse Rate 97 98 Respiratory Rate Blood Pressure Pulse Oximetry 93 Oxygen Delivery Room Air 04/23/25 04:05 04/23/25 04:10 04/23/25 05:31 Temperature 97.7 F Pulse Rate 89 88 94 Respiratory Rate 20 20 16 Blood Pressure 128/81 Pulse Oximetry 92 Oxygen Delivery 04/23/25 07:55 04/23/25 08:35 04/23/25 10:21 Temperature Pulse Rate 97 Respiratory Rate Blood Pressure Pulse Oximetry 90 Oxygen Delivery Room Air Room Air Intake/Output Intake/Output: Intake & Output 04/20/25 04/21/25 04/22/25 04/23/25 23:59 23:59 23:59 23:59 Intake Total 1062 300 Output Total 250 Balance 812 300 Meds/Results Medications: Active Medications Generic Name Dose Route Start Last Admin Trade Name Freq PRN Reason Stop Dose Admin Albuterol 2.5 mg 04/23/25 03:47 04/23/25 04:04 Albuterol Sulfate Neb 2.5 Mg/3 Ml Inh INHALATION 2.5 mg Q4HRT PRN Administration Shortness Of Breath Aspirin 81 mg 04/22/25 17:00 04/23/25 10:22 Aspirin 81 Mg Enteric Tablet PO 81 mg BID RAIZA Administration Enoxaparin Sodium 40 mg 04/23/25 09:00 04/23/25 10:17 Enoxaparin 40 Mg/0.4 Ml Syringe SUB-Q Not Given DAILY RAIZA Fluticasone/Umeclidinium/Vilanterol 1 puff 04/23/25 08:00 04/23/25 07:53 Fluticasone/Umeclidin/Vilanter 100-62.5-25 Mcg Ellipta INHALATION 1 puff DAILYRT RAIZA Administration Furosemide 40 mg 04/22/25 09:00 04/23/25 10:18 Furosemide Inj 40 Mg/4 Ml Vial IV PUSH Not Given DAILY RAIZA Lisinopril 5 mg 04/23/25 09:00 04/23/25 10:22 Lisinopril 5 Mg Tablet PO 5 mg QAM RAIZA Administration Metoprolol Succinate 50 mg 04/24/25 09:00 Metoprolol Succinate Ext Rel 50 Mg Tabcr PO QAM RAIZA Pantoprazole Sodium 40 mg 04/21/25 21:00 04/23/25 10:22 Pantoprazole Sodium Iv 40 Mg Vial IV PUSH 40 mg Q12HR RAIZA Administration Perflutren Lipid Microsphere 0 ml 04/21/25 19:49 Perflutren Lipid Microspheres 1.5 Ml Vial Diluted To 10 Ml Total Volume IV PUSH 04/24/25 19:50 ONCE PRN adequate visualization Protocol Radiology Results: ITS Impressions Chest/Abdomen/Pelvis CTA 04/21/25 17:10 IMPRESSION: There is no pulmonary embolism, aortic dissection, pericardial fluid or thoracic aneurysm. Pulmonary nodules within the upper lungs bilaterally measuring up to 21 mm. There are enlarged mediastinal lymph nodes measuring up to 1.9 cm in short axis dimension. Malignancy cannot be excluded. Follow-up PET/CT is recommended. CTA chest PE abdomen pel INDICATION:sob, le edema, prostate cancer, dark stools . COMPARISON: None. TECHNIQUE: Axial images of the abdomen and pelvis were obtained following infusion of 100 mL Isovue 370. Dose optimization technique was utilized. FINDINGS: The lung bases are clear. The liver parenchyma is unremarkable. No intrahepatic mass or ductal dilatation is evident. The gallbladder is unremarkable. The pancreas and spleen are normal in appearance. The adrenal glands are symmetric in size. The kidneys demonstrate symmetric uptake and excretion of contrast. No cystic mass is evident. There is no solid mass. There is no hydronephrosis. The bladder and rectum are normal. No free intraperitoneal fluid or air is evident. There is no significant retroperitoneal lymphadenopathy. The aorta, visceral vessels and renal arteries demonstrate normal caliber and patency. The lower thoracic and lumbar vertebrae are in normal alignment. IMPRESSION: No acute abnormality is noted in the abdomen and pelvis. All CT scans at this facility are performed using low dose modulation techniq ues as appropriate to perform exam including the following: automated exposure control; use of iterative reconstruction technique; adjustment of the mA and/or kV according to patient size (this includes techniques or standardized protocols for targeted exams where dose is matched to indication/reason for exam). Venous Doppler Study 04/21/25 17:33 IMPRESSION: No acute findings. Ankle Brachial Index 04/22/25 11:40 IMPRESSION: Both ABIs are within normal limits. There is slight diminution of the left great toe index of 0.67. Labs Labs: Laboratory Results - last 24 hr 04/22/25 04/22/25 04/23/25 05:16 05:21 04:29 WBC 11.0 H RBC 4.28 L Hgb 9.9 L Hct 33.3 L MCV 77.8 L MCH 23.1 L MCHC 29.7 L RDW 18.6 H Plt Count 392 H MPV 11.1 H Haptoglobin 133 Sodium 132 L Potassium 3.8 Chloride 100 Carbon Dioxide 27 Anion Gap 5 BUN 16 Creatinine 0.91 Estim Creat Clear Calc 74 Estimated GFR > 60 Glucose 97 Calcium 8.1 L Magnesium 2.0 Total Bilirubin 0.5 AST 49 ALT 31 Alkaline Phosphatase 145 H Total Protein 7.1 Albumin 3.5 Prostate Specific Ag 16.7 H Quality VTE Prophylaxis VTE prophylaxis: mechanical ordered -Patient's previous records reviewed on admission -ER notes reviewed in detail on admission -discussed all findings and current treatment plan with patient/Family/POA -Consultations reviewed for recommendations -Patient's disposition for safe discharge discussed with heel caser -radiology imaging, EKG and test results I have personally reviewed and in terpreted unless otherwise specified Dictation performed by [employer] direct speech recognition software, therefore television parts tester variants and typographical errors may occur. Hospitalist MIPS Advance Care Plan I have confirmed that the patient's Advanced Care Plan is present, code status is documented, or surrogate decision maker is listed in patient medical record.: Yes Medication Reconciliation I have utilized all available resources to obtain, update and review the patients current medications (includes all prescriptions, OTC, herbals, cannabis, and nutritional supplements).: Yes The patient is not eligible for med reconciliation; the patient is in a emergent medical situation where delaying treatment would jeopardize the patients health.: No
--- NOTE | 2025-04-25 16:57 | P.DS_ITS ---
DS: Admitting Diagnosis Discharge Date 04/23/25 Admitting Diagnosis SOB/anemia/metastatic prostate cancer DS: Discharge Diagnosis Discharge Diagnosis (1) CHF exacerbation: Qualifiers: Heart failure type: unspecified Qualified Code(s): I50.9 - Heart failure, unspecified Code(s): I50.9 - Heart failure, unspecified Status: Acute Assessment and Plan: The patient has a previous history of coronary artery disease with 2 stents. He believes the 2 stents were [place] in 1999. CT chest showing cardiomegaly and 2+ 3+ pitting edema BLE * Cardiology consult * GDMT with lisinopril 5mg daily and Metoprolol 25mg daily, will increase Toprol XL to 50 mg daily and continue to uptitrate meds on OP basis * Echocardiogram:left ventricle mildly dilated and severely reduced systolic function with severe eccentric left ventricular hypertrophy and EF of 10-20% with global hypokinesis. * IV p.o. Lasix daily transition to oral Lasix 40mg daily * Lifevest ordered * Daily weights * Strict I&Os * Patient plans for [facility] outpatient for further evaluation of possible ischemic cardiomyopathy (2) Anemia: Qualifiers: Anemia type: unspecified type Qualified Code(s): D64.9 - Anemia, unspecified Code(s): D64.9 - Anemia, unspecified Status: Acute Assessment and Plan: The patient stated that he had dark stools and that his primary care doctor guaiac distal was found to be positive. The patient has no over GIB likely secondary to metastatic cancer and poor appetite. his H&H is currently 9.8 in 32.9. We have no recent labs for comparison. * Hematology-Oncology have been consulted and their evaluation greatly be appreciated. * anemia panel has been initiated. * check stool for occult blood. * IV Protonix have been initiated. * trend H&H transfuse if Hgb <7.0 (3) GI bleed: Code(s): K92.2 - Gastrointestinal hemorrhage, unspecified Status: Acute Assessment and Plan: See Above * GI was consulted and recommended outpatient colonoscopy (4) Prostate cancer: Code(s): C61 - Malignant neoplasm of prostate Status: Acute Assessment and Plan: The patient has an oncologist and stated that he has not started treatment yet. He did have a PET scan back in December of this year. . Large region of marked increased asymmetric activity at the left side of the prostate consistent with primary prostate cancer. CT imaging showing single mildly suspicious focus of increased uptake in the left obturator region most likely related to urine activity in the left ureter but could not exclude an early metastatic lymph node. No other lesions suspicious for metastatic disease. The patient had a previous history of testicular cancer and had an orchiectomy. * oncology hematology has been consulted. * according to his CT scan is a 21 mm pulmonary nodule and pulmonary has been consulted for further recommendation. * Small bilateral pleural effusion or could be causing shortness of breath improve with lasix (5) Bilateral pleural effusion: Code(s): J90 - Pleural effusion, not elsewhere classified Status: Acute Assessment and Plan: CT showing bilateral small pleural effusions, CHF vs metastatic cancer for likely cause * BP 40 mg Lasix daily * Incentive spirometer * Pulmonary was consulted for further evaluation upper lobe nodules (6) Tobacco abuse: Code(s): Z72.0 - Tobacco use Status: Acute Assessment and Plan: * Smoking cessation provided * Declined nicotine patch Plan Code status: Full code per patient DVT prophylaxis: SCDs Stress ulcer prophylaxis: Protonix 40 b.i.d. PT/OT notes: Ambulatory Disposition: Patient continues admission waiting in [facility] plan for O/P [facility] and will follow-up with his oncologist at [facility]. DS: Summary Hospital Course Reason for hospitalization: Acute CHF with reduced EF/cardiomyopathy/anemia/metastatic prostate cancer Hospital Course: Admission: Patient was a 64-year-old male patient with a history of prostate cancer awaiting treatment with oral chemotherapy. The patient came into the emergency room with with complaints of shortness of breath. This has been ongoing over the last 2 days. He also reports that he has increased swelling to the right lower extremity. The patient has no prior history of any CHF her DVTs. He also noted that his stools have been darker than normal lately. The patient reports that he drinks 4 alcoholic drinks a week. He denies any nausea or vomiting. He did not notice any blood in his stool test that they were darker. In the ED: Abnormal labs his H&H is 9.8 and 32.2. We have no previous labs s anatoliy 2008 for comparison. And see the is 77.7. MCH is 23.3, MCHC is 30.0, RDW is 18.8. On his chemistry his sodium slightly low at 131. BNP is 9180. Venous Doppler of bilateral lower extremities was read as no acute findings. The patient was given a dose of Lasix in the emergency room as well as a nebulizer treatment. EKG was read as sinus tachycardia with premature atrial complexes left anterior fascicular block. Right bundle branch block. Moderate T-wave abnormality. He does carry the diagnosis of coronary artery disease with a history of 2 coronary stents in the past possibly in 1999. Hospital Course: The patient is being admitted to observation status on the date of service of 04/21/25. The patient has a previous history of coronary artery disease with 2 stents. He believes the 2 stents were placed in 1999. CT chest showing cardiomegaly and 2+ 3+ pitting edema BLE Cardiology was consulted after Echo done patient was found to have new left ventricle mildly dilated and severely reduced systolic function with severe eccentric left ventricular hypertrophy and EF of 10-20% with global hypokinesis. GDMT with lisinopril 5mg daily and Metoprolol 25mg daily, will increase Toprol XL to 50 mg daily started including IV p.o. Lasix daily transition to oral Lasix 40mg daily at discharge. Patient was scheduled for Cardiac cath for ischemic workup but was unable to have performed until Saturday and patient did not want to stay 2 more days to do so and schedule outpatient. A Lifevest was ordered but patient did not want to wait for delivery of LifeVest and left AMA. Did receive call from nursing staff that the lifevest would be delivered to patient at home following discharge. Patient was seen by oncology for new findings of metastatic prostate cancer which he stated he would follow- up with his oncologist at [facility]. (2) Anemia: The patient stated that he had dark stools and that his primary care doctor kait haynes was found to be positive. The patient has no over GIB likely secondary to metastatic cancer and poor appetite. his H&H is currently 9.8 in 32.9. We have no recent labs for comparison. Hgb remained stable and would follow outpatient. (4) Prostate cancer: The patient has an oncologist and stated that he has not started treatment yet. He did have a PET scan back in December of this year. . Large region of marked increased asymmetric activity at the left side of the prostate consistent with primary prostate cancer. CT imaging showing single mildly suspicious focus of increased uptake in the left obturator region most likely related to urine activity in the left ureter but could not exclude an early metastatic lymph node. No other lesions suspicious for metastatic disease. The patient had a previous history of testicular cancer and had an orchiectomy. Patient was educated on the possible outcomes of leaving AMA including cardiac arrest and but choose to leave AMA. Did encourage him to follow up with cardiology and his oncologist RUSS due to his guarded prognosis. I did send prescriptions in for his new HF. Patient left AMA. Status at Discharge Functional status at discharge: independent ambulation Overall status at discharge: other Time Spent with Patient Time attestation: Total time spent providing and/or coordinating discharge services: Time spent: Greater than 30 minutes Exam Narrative: From earlier assesment Const: General: comfortable and no acute distress Other: Pleasant male in no acute distress HENMT: Mouth: Yes moist mucous membranes Eyes: General: appearance normal, both eyes and all related structures Sclera: sclerae normal Pupils: Equal, round and reactive pupils present Neck: Neck: supple and no JVD Resp: Auscultation: wheezes scattered wheezes and diminished lung sounds bilateral Cardio: Rate: regular rate Rhythm: regular rhythm GI: Auscultation: normal bowel sounds Skin: General skin exam: normal color and no rashes or lesions noted Wounds: no wounds Neuro: General: gait normal Cranial nerves: Yes Equal, round and reactive pupils present Speech: normal speech Motor exam (neuro): 5/5 motor strength present throughout Sensory Exam: normal sensation Extrem: General: edema (2+ to 3+ BLE) bilateral Psych: Mental Status: mental status grossly normal Affect: normal affect DS: Data Imaging Radiologist's impression: Radiology Results: ITS Impressions Chest/Abdomen/Pelvis CTA 04/21/25 17:10 IMPRESSION: There is no pulmonary embolism, aortic dissection, pericardial fluid or thoracic aneurysm. Pulmonary nodules within the upper lungs bilaterally measuring up to 21 mm. There are enlarged mediastinal lymph nodes measuring up to 1.9 cm in short axis dimension. Malignancy cannot be excluded. Follow-up PET/CT is recommended. CTA chest PE abdomen pel INDICATION:sob, le edema, prostate cancer, dark stools . COMPARISON: None. TECHNIQUE: Axial images of the abdomen and pelvis were obtained following infusion of 100 mL Isovue 370. Dose optimization technique was utilized. FINDINGS: The lung bases are clear. The liver parenchyma is unremarkable. No intrahepatic mass or ductal dilatation is evident. The gallbladder is unremarkable. The pancreas and spleen are normal in appearance. The adrenal glands are symmetric in size. The kidneys demonstrate symmetric uptake and excretion of contrast. No cystic m ass is evident. There is no solid mass. There is no hydronephrosis. The bladder and rectum are normal. No free intraperitoneal fluid or air is evident. There is no significant retroperitoneal lymphadenopathy. The aorta, visceral vessels and renal arteries demonstrate normal caliber and patency. The lower thoracic and lumbar vertebrae are in normal alignment. IMPRESSION: No acute abnormality is noted in the abdomen and pelvis. Discharge Plan Discharge Attending physician on discharge: Jabari Albarran Oca Consulting providers: Anna Dumont; Bernadine Reyes; Hung West; Alejandro Moran Discharging Clinician: Bernadine Reyes Anticipated Discharge Date/Time: 04/23/25 17:16 Patient Disposition: Left Against Medical Advice Patient Instructions: How to Stop Smoking (DC) Patient Language: Albanian Discharge Medications: New lisinopril 5 mg tablet 5 mg PO DAILY Qty: 30 0RF aspirin 81 mg capsule 81 mg PO DAILY Qty: 30 0RF furosemide [Lasix] 40 mg tablet 40 mg PO DAILY Qty: 30 0RF metoprolol succinate 50 mg tablet extended release 24 hr 50 mg PO DAILY Qty: 30 0RF Continued [id number] [Excedrin Migraine] 250-250-65 mg tablet 1 tablet PO PRN Patient Comments: Pt states took 2. Date of admission: 04/22/25 13:20 Primary Care Provider: RadhaZafar Admitting Provider: Juanita Hancock Attending physician on admission: Juanita Hancock Condition: Serious Quality VTE Prophylaxis VTE prophylaxis: mechanical ordered Hospitalist MIPS Heart Failure (Exclusion) Patient has history of Heart Transplant or Left Ventricular Assistive Device?: Yes IF YES, STOP HERE Heart Failure (Qualifier) Patient has current or prior documentation of LVEF less than or equal to 40%, or mod/servere depressed LVSF?: Yes IF NO, STOP HERE If Yes, Heart Failure (Qualifier) Patient was prescribed or already taking an Angiotensin-Converting Enzyme (SHADY) Inhibitor, or Antiotensin Receptor Jeanne (ARB): Yes Patient was prescribed or already taking bisoprolol, carvedilol, or sustained release metoprolol succinate: Yes
[2025-04-26 15:09] LABS: Albumin, U 36.0 % (.); Alpha-1-Globulin, U 2.4 % (.); Alpha-2-Globulin, U 16.1 % (.); Beta Globulin, U 24.5 % (.); Gamma Globulin, U 21.0 % (.)
== END 2025-04-23 14:45 | disposition left against medical advice (07) | DRG 292 ==
LOC: ANHED 19:00 → ANH3MEDSUR 19:36 → ANH2MED 21:53
PROVIDERS: Internal Medicine Hematology & Oncology; Nurse Practitioner; Admitting Provider General Practice; Emergency Provider Physician Assistant; PCP Internal Medicine; Visit Provider Nurse Practitioner Family
DX: I50.23 Acute on chronic systolic (congestive) heart failure (principal); C77.1 Secondary and unspecified malignant neoplasm of intrathoracic lymph nodes; K92.2 Gastrointestinal hemorrhage, unspecified; I42.9 Cardiomyopathy, unspecified; D50.9 Iron deficiency anemia, unspecified; J44.9 Chronic obstructive pulmonary disease, unspecified; I25.10 Atherosclerotic heart disease of native coronary artery without angina pectoris; I45.10 Unspecified right bundle-branch block; R91.1 Solitary pulmonary nodule; F17.210 Nicotine dependence, cigarettes, uncomplicated; F10.90 Alcohol use, unspecified, uncomplicated; F12.90 Cannabis use, unspecified, uncomplicated; F15.90 Other stimulant use, unspecified, uncomplicated; F14.90 Cocaine use, unspecified, uncomplicated; Z95.5 Presence of coronary angioplasty implant and graft; Z79.82 Long term (current) use of aspirin; Z85.47 Personal history of malignant neoplasm of testis; Z90.79 Acquired absence of other genital organ(s); Z86.0100 Personal history of colon polyps, unspecified; Z86.19 Personal history of other infectious and parasitic diseases
CPT/HCPCS: 36415; 71275; 74177; 80048; 80053; 82247; 82607; 82728; 82746; 83010; 83540; 83550; 83615; 83735; 83880; 84153; 84156; 84166; 84238; 84443; 84466; 85014; 85018; 85025; 85027; 85046; 85610; 85730; 86850; 86880; 86900; 86901; 93005; 93306; 93922; 93970; 94640; 96374; 96375; 99285; A9270; G0378; J1756; J1938; J2470; J3420; J7050; Q9967